=== PATIENT | female | born 1960 | race Caucasian/White ===

== ENCOUNTER → 2017-07-28 15:45 | Outpatient (CLI) | payer OTHER, SELFPAY ==
[2017-07-28 16:09] LABS: Hematocrit 40.8 % (37-47); Hemoglobin 13.8 g/dl (12.0-15.0); Mean Corp Hgb Conc 33.8 g/gl (32-36); Mean Corpuscular Hgb 30.8 pg (27.0-32.0); Mean Corpuscular Volume 91.1 fL (81-99); Mean Platelet Vol. 9.1 fl (6.2-12.0); Platelet Count 258 K/mm3 (150-450); RBC Distribution Width CV 12.6 % (11.6-14.6); RBC Distribution Width SD 40.9 fl (35.1-43.9); Red Blood Count 4.48 M/mm3 (4.2-5.4); White Blood Count 7.6 K/mm3 (4.4-11.0)
[2017-07-28 16:12] LABS: Scan Indicated on CBC? Y/N NO
[2017-07-28 16:57] LABS: AST(SGOT) 28 U/L (15-37); Alanine Aminotransfer ALT/SGPT 41 U/L (13-56); Albumin, Serum 3.7 g/dL (3.2-5.0); Alkaline Phosphatase 103 U/L (45-117); Anion Gap 8 (5-15); BUN 24 mg/dL (7-18); BUN/Creat Ratio 24.8 RATIO (10-20); Bilirubin, Direct 0.08 mg/dL (0.00-0.30); Calcium,Total 8.9 mg/dL (8.5-10.1); Chloride 105 mmol/L (98-107); Cholesterol 217 mg/dL (200); Creatinine, Serum 0.97 mg/dL (0.55-1.02); EST Glomerular Filtration Rate 63 mL/min (>60); Est Glom Filt Rate - Afr Amer 76 mL/min (>60); Glucose 93 mg/dL (74-106); High Density Lipoprotein 48 mg/dL; Potassium 3.8 mmol/L (3.5-5.1); Protein, Total 7.7 g/dL (6.4-8.2); Sodium Level 140 mmol/L (136-145); T4 Free Direct 0.94 ng/dL (0.76-1.46); Thyroid Stim Hormone (TSH) 3.24 uIU/mL (0.358-3.74); Triglycerides 242 mg/dL; Very Low Density Lipoprotein 48 mg/dL (5-40)
== END ==
PROVIDERS: Visit Provider Internal Medicine Cardiovascular Disease
DX: R06.09 Other forms of dyspnea (principal); R53.83 Other fatigue; R07.9 Chest pain, unspecified; R00.2 Palpitations; R94.31 Abnormal electrocardiogram [ECG] [EKG]; E66.9 Obesity, unspecified
CPT/HCPCS: 36415; 80048; 80061; 80076; 84439; 84443; 85027

== ENCOUNTER → 2017-08-12 12:46 | Outpatient (CLI) | payer OTHER, SELFPAY ==
--- NOTE | 2017-08-12 12:49 | ECHOD_ITS ---
Reason For Study: Chest Pain Procedure This was a 2D Doppler, Color Flow transthoracic echocardiogram. Exam performed in department. Left Ventricle Normal size and thickness. The estimated ejection fraction is 55 %. Stage 1 diastolic dysfunction. No regional wall motion abnormalities noted. Right Ventricle Normal size and thickness. Normal systolic function. Atria Normal left atrium. Normal right atrium. Normal atrial septum. Mitral Valve The mitral valve is structurally normal. No prolapse or stenosis seen. Trivial mitral valve insufficiency. Tricuspid Valve Normal tricuspid valve. Trivial tricuspid valve insufficiency. Right ventricular systolic pressure estimated to be 20 mmHg. Aortic Valve Trisinus/trileaflet aortic valve. Normal aortic valve. Pulmonic Valve Normal pulmonic valve. Great Vessels Normal aortic root. Normal arch. Normal inferior vena cava. Inferior vena cava collapse with sniff. Pericardium/Pleural No pericardial effusion. MMode/2D Measurements & Calculations LVIDd: 4.8 cm IVSd: 0.90 cm Ao root diam: 2.9 cm LVIDs: 3.5 cm LVPWd: 0.95 cm LA dimension: 3.9 cm RVDd: 3.4 cm FS: 28.1 % LAV(MOD-bp): 40.1 ml EDV(MOD-sp4): 79.6 ml SV(MOD-sp4): 47.6 ml LAV(MOD-bp) Indexed: 19.6 ml/m2 ESV(MOD-sp4): 32.0 ml LAV(MOD-sp2): 42.3 ml EF(MOD-sp4): 59.8 % LAV(MOD-sp4): 32.9 ml LA A4 area: 15.0 cm2 RA A4 area: 11.3 cm2 Doppler Measurements & Calculations MV E max melquiades: 64.2 cm/sec Lat Peak E' Melquiades: 5.5 cm/sec Med Peak E' Melquiades: 5.0 cm/sec MV A max melquiades: 79.7 cm/sec E/E' lat: 11.7 E/E' med: 12.9 MV E/A: 0.81 Ao V2 max: 144.2 cm/sec LV V1 max: 117.3 cm/sec PA V2 max: 86.6 cm/sec Ao max P.3 mmHg LV V1 max P.5 mmHg Ao V2 mean: 108.5 cm/sec Ao mean P.0 mmHg Ao V2 VTI: 31.5 cm TR max melquiades: 191.5 cm/sec TR max P.7 mmHg Interpretation Summary The estimated ejection fraction is 55 %. Stage 1 diastolic dysfunction. Trivial mitral valve insufficiency. Trivial tricuspid valve insufficiency. Right ventricular systolic pressure estimated to be 20 mmHg. Compared to echo report dated 02/05/2011, no appreciable changes noted. Ordering Physician: Mino Haro Referring Physician: Mino Haro Performed By: Stefany Graf, VANDANA, RVT
== END ==
PROVIDERS: Visit Provider Internal Medicine Cardiovascular Disease
DX: R07.9 Chest pain, unspecified (principal); R06.09 Other forms of dyspnea; R53.83 Other fatigue; E66.9 Obesity, unspecified; R94.31 Abnormal electrocardiogram [ECG] [EKG]; R00.2 Palpitations
CPT/HCPCS: 93306

== ENCOUNTER 2020-06-12 05:19 | Day surgery (SDC) | payer OTHER, SELFPAY ==
[2020-02-20 14:18] VITALS: BMI 46.2
[2020-06-12] VITALS (9 sets, daily range): BP systolic 106–142; BP diastolic 73–101; PULSE 66–77; RESP 16; TEMP 36.3–37; O2SAT 91–100; BMI 46.3
[2020-06-12] MEDS: Lactated Ringers 1,000 ML 100 ML IV (05:58)
--- NOTE | 2020-06-12 06:16 | HP.PCM_ITS ---
Problem List (1) Screening for intestinal cancer Status: Acute History of Present Illness Date of Admission: 06/12/20 60-year-old female. She presents for screening colonoscopy. Her brother had colon cancer. Her most recent colonoscopy was July 05, 2013. She had a redundant sigmoid colon. She states that she is avoided COVID-19. She denies abdominal pain bright red blood per rectum or melena. No unexpected weight loss. She states her health is otherwise been stable. Past Medical History Past Medical History (Chronic Problems): Chronic Problems (Last Reviewed 07/28/17 @ 14:54 by Regine Lam) Obesity (Chronic) Medical History: Medical History (Last Reviewed 07/28/17 @ 14:54 by Regine Lam) Obesity (Chronic) E66.9 Osteoarthritis M19.90 Varicose veins of bilateral lower extremities with other complications I83.893 History of echocardiogram Z92.89 Allergies erythromycin base Adverse Reaction (Severe, Verified 06/12/20 05:40) GI Upset Home Medications: Ambulatory Orders Medication Instructions Recorded naproxen sodium 220 mg tablet 220 mg PO DAILY 02/20/20 Idalou-3 Fatty Acids/Fish Oil [Fish 1 ea PO DAILY 06/08/20 Oil 1,000 mg Capsule] Surgical History: Surgical History (Last Updated 07/28/17 @ 15:04 by Regine Lam) History of adenoidectomy Z98.890, Z90.89 History of section Z98.891 History of cholecystectomy Z98.890, Z90.49 History of hysterectomy Z98.890, Z90.710 total History of liver biopsy Z98.890 History of tonsillectomy Z98.890, Z90.89 History of tubal ligation Z98.51 Smoking Status: Never smoker Tobacco Use: Non-smoker Review of Systems Constitutional: Denies: Fever HEENT: Denies: Difficulty Swallowing Cardiovascular: Denies: Chest Pain Respiratory: Denies: Shortness of Breath Gastrointestinal: Denies: Abdominal Pain, Hematochezia, Melena Endocrine: Denies: Change in Body Habitus VTE Information - Inpt Only VTE Present on Admission: No - Physical Exam Vitals/I&O's: Vital Signs Temp Pulse Resp BP Pulse Ox 98.1 F 77 16 121/92 H 97 06/12/20 05:41 06/12/20 05:41 06/12/20 05:41 06/12/20 05:41 06/12/20 05:41 Oxygen Delivery Method Room Air Weight: 253 lb 4.978 oz Body Mass Index (BMI) 46.3 General: Alert, Oriented x3, Cooperative, No apparent distress HEENT: Atraumatic Oral: Moist Mucosa Neck: Supple Lungs: Clear to auscultation, Normal air movement Cardiovascular: Regular rate, Regular Rhythm Abdomen: Bowel Sounds Present, Soft, Non Tender Psych/Mental Status: Normal Affect Microbiology Past 72 Hours 06/11/20 08:40 Interface Orders SARS-CoV-2 Antigen (Rapid) - Final Current Medications Lactated Ringer's () 1,000 mls @ 100 mls/hr IV .Q10H KWAME Last Admin: 06/12/20 05:58 Dose: 100 mls/hr Documented by: Assessment/Plan All Active Problems (Last Reviewed 07/28/17 @ 14:54 by Regine Lam) Screening for intestinal cancer (Acute) Dyspnea on exertion (Acute) Fatigue (Acute) Abnormal electrocardiogram (Acute) Chest pain (Acute) Intermittent palpitations (Acute) Plan to proceed with a colonoscopy with possible biopsy or polypectomy as indicated. She is aware of the technique, benefit, risk, alternatives. She has had an opportunity to ask and have questions answered. She presents via open access today. We will proceed as noted. Kendell Davalos M.D., F.A.C.S.
--- NOTE | 2020-06-12 06:54 | OP.CCLET_ITS ---
06/12/2020 Vicenta Jean Baptiste [address] [place] [address] Re : Colonoscopy procedure for Becky Rutledge Dear Dr. Jean Baptiste This procedure was performed on Friday, June 12, 2020. My impressions and recommendations are as follows: Impressions : - Non-thrombosed external hemorrhoids, non-thrombosed internal hemorrhoids and internal hemorrhoids that prolapse with straining, but spontaneously regress to the resting position (Grade II) found on digital rectal exam. - Tortuous colon. - The examination was otherwise normal. - No specimens collected. Recommendations : - Discharge patient to home. - Resume previous diet. - Continue present medications. - Repeat colonoscopy in 5 years for surveillance. My findings are described in the full procedure note, which is enclosed. If I can be of further assistance, please feel free to contact me at Doctor phone number(s): Work: . Sincerely, Kendell Davalos MD 06/12/2020 6:53:46 AM This report has been signed electronically.
--- NOTE | 2020-06-12 06:54 | OP.COLON_ITS ---
Patient Name: Becky Rutledge Procedure Date: 06/12/2020 6:14 AM Date of : 1960 Age: 60 Procedure: Colonoscopy Indications: Family history of colon cancer in a first-degree relative Providers: Kendell Davalos MD Referring MD: Vicenta Jean Baptiste Medicines: Midazolam 4 mg IV, Meperidine 100 mg IV Patient Profile: Last Colonoscopy: June 2013. Complications: No immediate complications. Procedure: Pre-Anesthesia Assessment: - Prior to the procedure, a History and Physical was performed, and patient medications and allergies were reviewed. The patient's tolerance of previous anesthesia was also reviewed. The risks and benefits of the procedure and the sedation options and risks were discussed with the patient. All questions were answered, and informed consent was obtained. Prior Anticoagulants: The patient has taken aspirin, last dose was 5 days prior to procedure. ASA Grade Assessment: II - A patient with mild systemic disease. After reviewing the risks and benefits, the patient was deemed in satisfactory condition to undergo the procedure. After I obtained informed consent, the scope was passed under direct vision. Throughout the procedure, the patient's blood pressure, pulse, and oxygen saturations were monitored continuously. The adult colonoscope was introduced through the anus and advanced to the cecum, identified by appendiceal orifice and ileocecal valve. The colonoscopy was performed without difficulty. The patient tolerated the procedure well. The quality of the bowel preparation was good. The ileocecal valve and the appendiceal orifice were photographed. Moderate Sedation: Moderate (conscious) sedation was personally administered by the endoscopist. The following parameters were monitored: oxygen saturation, heart rate, blood pressure, and response to care. Total physician intraservice time was 15 minutes. Scope In: 6:34:24 AM Scope Withdrawal Time 0 hours 7 minutes 20 seconds Scope Out: 6:48:34 AM Total Procedure Duration Time 0 hours 14 minutes 10 seconds Findings: The digital rectal exam findings include non-thrombosed external hemorrhoids, non-thrombosed internal hemorrhoids and internal hemorrhoids that prolapse with straining, but spontaneously regress to the resting position (Grade II). The sigmoid colon was moderately tortuous. Advancing the scope required changing the patient to a supine position. The exam was otherwise without abnormality. Impression: - Non-thrombosed external hemorrhoids, non-thrombosed internal hemorrhoids and internal hemorrhoids that prolapse with straining, but spontaneously regress to the resting position (Grade II) found on digital rectal exam. - Tortuous colon. - The examination was otherwise normal. - No specimens collected. Recommendation: - Discharge patient to home. - Resume previous diet. - Continue present medications. - Repeat colonoscopy in 5 years for surveillance. Procedure Code(s): --- Professional --- 29727, Colonoscopy, flexible; diagnostic, including collection of specimen(s) by brushing or washing, when performed (separate procedure) 03898, 59, Moderate sedation services provided by the same physician or other qualified health managed care director performing the diagnostic or therapeutic service that the sedation supports, requiring the presence of an independent trained observer to assist in the monitoring of the patient's level of consciousness and physiological status; initial 15 minutes of intraservice time, patient age 5 years or older Diagnosis Code(s): --- Professional --- K64.1, Second degree hemorrhoids K64.4, Residual hemorrhoidal skin tags Z80.0, Family history of malignant neoplasm of digestive organs Q43.8, Other specified congenital malformations of intestine CPT copyright 2017 [employer]. All rights reserved. The codes documented in this report are preliminary and upon social human services assistants review may be revised to meet current compliance requirements. Kendell Davalos MD 06/12/2020 6:53:46 AM This report has been signed electronically. Number of Addenda: 0 Note Initiated On: 06/12/2020 6:14 AM
== END 2020-06-12 07:30 | disposition home or self-care (01) ==
LOC: EN 05:19 → AC 05:19
PROVIDERS: PCP Internal Medicine; Referring Provider Internal Medicine; Visit Provider Surgery
PROC: 0DJD8ZZ Inspection of Lower Intestinal Tract, Via Natural or Artificial Opening Endoscopic (ICD-10-PCS; CPT 45378; principal; 2020-06-12 06:25)
DX: Z12.11 Encounter for screening for malignant neoplasm of colon (principal); Q43.8 Other specified congenital malformations of intestine; K64.1 Second degree hemorrhoids; K64.4 Residual hemorrhoidal skin tags; Z20.822 Contact with and (suspected) exposure to COVID-19; M19.90 Unspecified osteoarthritis, unspecified site; E66.9 Obesity, unspecified; Z80.0 Family history of malignant neoplasm of digestive organs
CPT/HCPCS: 45378; 87426; C9803; J7120

== ENCOUNTER → 2022-07-02 | Outpatient (CLI) | payer BC, SELFPAY ==
[2022-07-02 08:09] LABS: AST(SGOT) 34 U/L (15-37); Alanine Aminotransfer ALT/SGPT 63 U/L (13-56); Albumin, Serum 3.6 g/dL (3.2-5.0); Alkaline Phosphatase 99 U/L (45-117); Anion Gap 6 (5-15); BUN 21 mg/dL (7-18); BUN/Creat Ratio 21.9 RATIO (10-20); Calcium,Total 9.2 mg/dL (8.5-10.1); Chloride 104 mmol/L (98-107); Cholesterol 222 mg/dL (200); Creatinine, Serum 0.96 mg/dL (0.55-1.02); EST Glomerular Filtration Rate 62 mL/min (>60); Est Glom Filt Rate - Afr Amer 75 mL/min (>60); Globulin 3.7 g/dL (2.2-4.2); Glucose 121 mg/dL (74-106); High Density Lipoprotein 49 mg/dL; Potassium 4.3 mmol/L (3.5-5.1); Protein, Total 7.3 g/dL (6.4-8.2); Sodium Level 138 mmol/L (136-145); Triglycerides 160 mg/dL; Uric Acid 7.8 mg/dL (2.6-6.0); Very Low Density Lipoprotein 32 mg/dL (5-40)
[2022-07-02 08:13] LABS: Vitamin D,25 Hydroxy 28.4 ng/mL
[2022-07-02 09:04] LABS: Hemoglobin A1c 6.2 % (3.8-5.6)
== END | disposition home or self-care (01) ==
PROVIDERS: PCP Internal Medicine; Referring Provider Obstetrics & Gynecology; Visit Provider Obstetrics & Gynecology
DX: E66.9 Obesity, unspecified (principal); Z13.1 Encounter for screening for diabetes mellitus; Z13.220 Encounter for screening for lipoid disorders; Z13.29 Encounter for screening for other suspected endocrine disorder
CPT/HCPCS: 36415; 80053; 80061; 82306; 83036; 83525; 84443; 84550

== ENCOUNTER → 2022-07-07 | Outpatient (CLI) | payer BC, SELFPAY ==
[2022-07-07 07:07] LABS: Glucose 75GTT - Fasting 120 mg/dL (70-99)
[2022-07-07 07:36] LABS: Free T3 2.6 pg/mL (2.18-3.98); T4 Free Direct 0.92 ng/dL (0.76-1.46)
[2022-07-07 09:02] LABS: Glucose 75GTT - 30 minutes 193 mg/dL (100-160)
[2022-07-07 09:02] LABS: Glucose 75GTT - 60 minutes 264 mg/dL (100-160)
[2022-07-07 09:50] LABS: Glucose 75GTT - 120 minutes 153 mg/dL (70-140)
== END | disposition home or self-care (01) ==
LOC: LAB.FUTURE 06:33 → LAB 06:39
PROVIDERS: PCP Internal Medicine; Referring Provider Obstetrics & Gynecology; Visit Provider Obstetrics & Gynecology
DX: Z13.1 Encounter for screening for diabetes mellitus (principal); R94.6 Abnormal results of thyroid function studies
CPT/HCPCS: 36415; 82951; 82952; 84439; 84481

== ENCOUNTER → 2022-08-07 | Outpatient (CLI) | payer BC, SELFPAY | END | disposition home or self-care (01) | LOC: SL 11:24 | PROVIDERS: PCP Internal Medicine; Referring Provider Obstetrics & Gynecology; Visit Provider Obstetrics & Gynecology | DX: G47.10 Hypersomnia, unspecified (principal); R06.83 Snoring; E66.9 Obesity, unspecified | CPT/HCPCS: 95806 ==

== ENCOUNTER → 2022-08-20 | Outpatient (CLI) | payer BC, SELFPAY ==
--- NOTE | 2022-08-20 18:03 | STRESSREP_ITS ---
Stress Test Report Pharmacologic myocardial perfusion stress test. 62-year-old lady with a history of shortness of breath on exertion Resting EKG demonstrates sinus rhythm with a rate of 72 bpm. Resting blood pressure is 118/80 mmHg. 0.4 mg of regadenoson was infused per usual protocol followed by rapid intravenous saline flush injection. Continuous EKG monitoring was performed. The maximum heart rate was 95 bpm which was 60% of max impacted heart rate the maximum workload was 1 metabolic equivalent. At rest there were no ST or T wave changes noted to suggest ischemia and at peak infusion nonspecific ST changes were noted which did not meet the criteria for ischemia. No clinical angina is noted. The final blood pressure was 120/80 mmHg. Myocardial perfusion protocol. 14.9 mCi of technetium 99m sestamibi was injected at rest. 0.4 mg of regadenoson was infused per usual protocol. At peak infusion 44.7 mCi of technetium 99m sestamibi was injected stress images were obtained stress and rest images were reconstructed and compared in the short axis vertical long and horizontal long axis. Gated images were also obtained. Perfusion SPECT analysis: Review of the stress images demonstrate normal uptake of tracer noted in all areas of the myocardium except for small portion of the mid anterior wall with reduced perfusion. The resting images similar demonstrated normal uptake of tracer noted in all areas of the myocardium. The above is suggestive of mild mid anterior ischemia though breast wall attenuation cannot be completely excl uded. Gated SPECT analysis: The gated ejection fraction is 68%. Conclusion: Mildly abnormal pharmacologic myocardial perfusion stress test. Preserved ejection fraction.
== END | disposition home or self-care (01) ==
PROVIDERS: PCP Internal Medicine; Referring Provider Internal Medicine Cardiovascular Disease; Visit Provider Internal Medicine Cardiovascular Disease
DX: R06.09 Other forms of dyspnea (principal); R94.31 Abnormal electrocardiogram [ECG] [EKG]; R07.9 Chest pain, unspecified; R00.2 Palpitations
CPT/HCPCS: 78452; 93017; A9500; A4216; J2785

== ENCOUNTER → 2022-08-28 | Outpatient (CLI) | payer BC, SELFPAY ==
--- NOTE | 2022-08-28 13:35 | ECHOD_ITS ---
Reason For Study: Dyspnea/SOB Procedure This was a 2D Doppler, Color Flow transthoracic echocardiogram. Exam performed in department. Left Ventricle Normal LV size. Left ventricular systolic function is normal. The estimated ejection fraction is 60 %. Stage 1 diastolic dysfunction. No regional wall motion abnormalities noted. Right Ventricle Normal RV size. Normal systolic function. Atria Normal left atrium. Normal right atrium. Mitral Valve Normal mitral valve. Tricuspid Valve Normal tricuspid valve. Aortic Valve Trisinus/trileaflet aortic valve. Pulmonic Valve Normal pulmonic valve. Great Vessels Normal aortic root. The pulmonary artery is normal size. Normal inferior vena cava. Pericardium/Pleural No pericardial effusion. MMode/2D Measurements & Calculations LVIDd: 4.8 cm IVSd: 1.0 cm Ao root diam: 3.1 cm LVIDs: 3.7 cm LVPWd: 0.95 cm LA dimension: 3.8 cm RVDd: 3.5 cm FS: 23.4 % LAV(MOD-bp): 47.4 ml LVAd ap4: 29.7 cm2 SV(MOD-sp4): 57.4 ml LAV(MOD-bp) Indexed: 21.5 ml/m2 LVLd ap4: 8.0 cm LAV(MOD-sp2): 43.6 ml EDV(MOD-sp4): 89.3 ml LAV(MOD-sp4): 43.8 ml EDV(sp4-el): 94.2 ml LVAs ap4: 15.2 cm2 LVLs ap4: 6.3 cm ESV(MOD-sp4): 31.9 ml ESV(sp4-el): 31.2 ml EF(MOD-sp4): 64.3 % EF(sp4-el): 66.9 % SV(sp4-el): 63.0 ml LA A4 area: 17.3 cm2 RA A4 area: 11.4 cm2 Time Measurements MV dec time: 0.19 sec Doppler Measurements & Calculations MV E max melquiades: 85.7 cm/sec Lat Peak E' Melquiades: 8.2 cm/sec Med Peak E' Melquiades: 7.7 cm/sec MV A max melquiades: 90.6 cm/sec E/E' lat: 10.5 E/E' med: 11.1 MV E/A: 0.95 MV V2 max: 111.2 cm/sec MV P1/2t max melquiades: 88.8 cm/sec Ao V2 max: 177.1 cm/sec MV max P.9 mmHg MV P1/2t: 62.4 msec Ao max P.6 mmHg MV V2 mean: 60.6 cm/sec Ao V2 mean: 114.8 cm/sec MV mean P.7 mmHg MV dec slope: 416.6 cm/sec2 Ao mean P.1 mmHg MV V2 VTI: 30.0 cm MVA(P1/2t): 3.5 cm2 Ao V2 VTI: 34.5 cm AV (velocity ratio): 0.78 LV V1 max: 119.9 cm/sec PA V2 max: 105.7 cm/sec LV V1 max P.8 mmHg PA V2 mean: 77.9 cm/sec LV V1 mean P.9 mmHg LV V1 mean: 78.4 cm/sec LV V1 VTI: 26.8 cm ECHO/Echo Complete Interpretation Summary Normal LV size. Left ventricular systolic function is normal. The estimated ejection fraction is 60 %. Stage 1 diastolic dysfunction. Structurally normal valves. Ordering Physician: Israel Foss Referring Physician: Vicenta Jean Baptiste M.D. Performed By: Gordon Herbert RCS
== END | disposition home or self-care (01) ==
PROVIDERS: PCP Internal Medicine; Referring Provider Internal Medicine Cardiovascular Disease; Visit Provider Internal Medicine Cardiovascular Disease
DX: R06.02 Shortness of breath (principal); R94.31 Abnormal electrocardiogram [ECG] [EKG]; R07.9 Chest pain, unspecified; R00.2 Palpitations
CPT/HCPCS: 93306

== ENCOUNTER → 2022-09-01 | Outpatient (CLI) | payer BC, SELFPAY ==
--- NOTE | 2022-08-28 15:00 | RAD_ITS ---
INDICATION: Abnormal stress test. Cardiac cath ordered. EXAMINATION/TECHNIQUE: X-RAY - XR Chest 2 Views COMPARISON: None. FINDINGS: LINES/DEVICES: None. LUNGS: No consolidation, edema or effusion. No pneumothorax. MEDIASTINUM AND CARDIOVASCULAR STRUCTURES: Cardiac silhouette not enlarged. Central airways and mediastinal contour are unremarkable. BONES AND SOFT TISSUES: Unremarkable. RAD/Chest PA and Lateral IMPRESSION: No radiographic evidence of acute cardiopulmonary disease. Electronically Signed: Fred Garrett MD at 19:47 EDT ,
[2022-08-28 15:54] LABS: Absolute Lymphocyte Count 1.94 X10^3/uL (0.83-4.51); Absolute Neutrophil Count 5.3 X10^3/uL (2.0-7.7); Basophil# 0.05 X10^3/uL; Basophil% 0.6 % (0-1); Eosinophil# 0.17 X10^3/uL; Eosinophils% 2.2 % (0-5); Hematocrit 40.4 % (37-47); Hemoglobin 13.6 g/dL (12.0-15.0); Lymphocyte # 1.94 X10^3/ul (0.83-4.51); Lymphocyte % 24.7 % (19-41); Mean Corp Hgb Conc 33.7 g/dL (32-36); Mean Corpuscular Hgb 30.6 pg (27.0-32.0); Mean Corpuscular Volume 90.8 fL (81-99); Mean Platelet Vol. 9.3 fl (6.2-12.0); Monocyte# 0.42 X10^3/uL; Monocyte% 5.3 % (0-10); NRBC Flagged by Analyzer 0 % (0-5); Neutrophil # 5.25 X10^3/uL (2.7-7.7); Neutrophil % 66.7 % (47-70); Platelet Count 265 K/mm3 (150-450); RBC Distribution Width CV 12.8 % (11.6-14.6); RBC Distribution Width SD 42.2 fl (35.1-43.9); Red Blood Count 4.45 M/mm3 (4.2-5.4); White Blood Count 7.9 K/mm3 (4.4-11.0)
[2022-08-28 16:11] LABS: International Normalized Ratio 0.9; Partial Thromboplast Time 27.3 Seconds (24.1-36.2); Prothrombin Time (Protime)PT. 11.7 SECONDS (11.7-14.9)
[2022-08-28 16:12] LABS: Anion Gap 6 (5-15); BUN 21 mg/dL (7-18); BUN/Creat Ratio 21.4 RATIO (10-20); Calcium,Total 9.2 mg/dL (8.5-10.1); Chloride 106 mmol/L (98-107); Creatinine, Serum 0.98 mg/dL (0.55-1.02); EST Glomerular Filtration Rate 60 mL/min (>60); Est Glom Filt Rate - Afr Amer 73 mL/min (>60); Glucose 102 mg/dL (74-106); Sodium Level 139 mmol/L (136-145)
--- NOTE | 2022-08-29 12:41 | PCM.HP.BLA ---
History and Physical Date of Admission: 09/01/22 Pleasant 62-year-old lady with no previous cardiac history who is here to reestablish care after complaining of lower back pain with exertion and shortness of breath.? She says that she does not have a history of hypertension but was recently put on a diet medication and thinks that she has lost some weight.? She denies any chest pain but she has had shortness of breath with exertion no dizziness no diaphoresis no near syncope though she says that occasionally she has had some lightheadedness.? She is on no medication other than thyroid medication her last echocardiogram was from July 2017 demonstrating an ejection fraction of 55% and stage I diastolic dysfunction. Intake Vital Signs ? 06/12/2104:41 07/24/2311:36 07/23/2313:20 Height 5 ft 2 in 5 ft 2 in 5 ft 2 in Weight: ? ? 280 lb BMI ? ? 51.2 BP ? ? 144/86 H Blood Pressure Location ? ? Lt brachial Position ? ? Sitting Respiration ? ? 18 Pulse ? ? 84 Pulse Source ? ? 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 Accompanied by: None Is patient in pain?: No Allergies erythromycin base Adverse Reaction (Severe, Verified 07/23/22 14:26) GI Upsetamoxicillin [From Augmentin] Adverse Reaction (Unknown, Verified 07/23/22 14:26) GI Upsetclavulanic acid [From Augmentin] Adverse Reaction (Unknown, Verified 07/23/22 14:26) GI Upset Medications cholecalciferol (vitamin D3) 50 mcg (2,000 unit) tablet 50 mcg PO DAILY 07/23/22 [History Confirmed 07/23/22] levothyroxine 25 mcg tablet 25 mcg PO DAILY 07/23/22 [History Confirmed 07/23/22] metformin 500 mg tablet,extended release 24 hr 1,000 mg PO QPM 07/23/22 [History Confirmed 07/23/22] omega-3 fatty acids-fish oil 340 mg-1,000 mg capsule 2 cap PO DAILY 07/23/22 [History Confirmed 07/23/22] phentermine 15 mg capsule 15 mg PO DAILY 07/23/22 [History Confirmed 07/23/22] Ejection fraction %: 55 to 59 PFSH Medical History? Back pain Obesity Osteoarthritis Screening for intestinal cancer Type 2 diabetes mellitus without complication Varicose veins of bilateral lower extremities with other complications Surgical History? History of adenoidectomy History of section History of cholecystectomy History of hysterectomy History of liver biopsy History of tonsillectomy History of tubal ligation Family History? Mother CAD (coronary artery disease)Grandfather Congestive heart failureGrandmother CVA (cerebral vascular accident)Father Colon cancerBrother Colon cancer Social History? Smoking Status:? Never smoker alcohol intake:? never substance use type:? does not use caffeine:? No ROS Const Const: Positive for fatigue, weakness and other; Negative for headache(s), frequent falls, difficulty sleeping or excessive sweating Eyes Eyes: Negative for loss of peripheral vision, transient loss of vision, blurry vision, double vision or tunnel vision ENT ENT: Negative for headache(s), dizziness, Nosebleed/epistaxis or balance problems Cardio Chest Pain: No Palpitations: Yes feels like its: fast Edema: Bilateral Muscle aches with walking: None Resp Respiratory: Positive for SOB with activity; Negative for SOB at rest, SOB orthopnea\SOB lying down, Cough or paroxysmal nocturnal dyspnea GI GI: Negative nausea, vomiting, heartburn or black,tarry stools : Negative for hematuria Musc Musc: Positive for muscle aches/ myalgia (C/o of back pain with walking) and joint pain; Negative for muscle weakness or balance problems Skin Skin: Negative non-healing lesions, rash or unusual bruising Neuro Neuro: Positive for lightheadedness, near syncope, weakness and other (Episodes while driving where she felt like she was timothy to faint.); Negative for dizziness, syncope, frequent falls, headache(s), blurry vision, double vision or lack of coordination Tushar Hematologic/Lymphatic: Negative for easy bleeding or easy bruising Endo Endo: Positive for fatigue; Negative for excessive sweating or increased thirst/drinking Psych Psych: Negative for anxiety or depression Allergy Allergy/Immunology: Negative for hives and Negative for rash Cardiology Exam Const Appearance: cooperative, healthy appearing, no acute distress, well developed and well groomed Nutritional Appearance: average body habitus and well nourished Orientation: alert, awake and oriented x3 Head Head: normal to inspection, normocephalic and atraumatic Ears: hearing grossly normal bilaterally and external ears normal Nose: external nose normal, nares normal, nasal mucous membranes and turbinates normal, septum normal and no nasal discharge Face and Sinus: face symmetric Mouth: oral mucosae normal, tongue normal, oropharynx normal and moist mucous membranes Teeth and gingiva: dentition normal Throat: posterior oropharynx normal, tonsils normal and uvula midline Eyes General: appearance normal, both eyes and all related structures Eyelids: eyelids normal Conjunctivae: conjunctivae normal Pupils: PERRL, normal by confrontation and accommodation normal EOM: EOM intact bilaterally Neck Neck: normal visual inspection, trachea midline and no JVD JVD: +5 Carotids: normal carotid upstroke and bounding pulses Chest Chest inspection: normal inspection of the chest, symmetric chest movement and normal respiratory effort Auscultation: Bilateral: Clear to Auscultation Cardio Palpation: normal PMI Rate: regular rate Rhythm: regular rhythm Heart sounds: S1 normal, S2 normal and normal, physiologic split S2; Negative rub, gallop or murmur GI GI: normal to inspection, soft, no hepatosplenomegaly and bowel sounds present Neuro General: patient alert, patient awake, patient oriented x3, gait normal, moves all extremities and no focal sensory deficit Skin Skin: no rashes or lesions noted Extremities Pulses: Normal: Right Femoral Pulse, Left Femoral Pulse, Right Dorsalis Pedis Pulse, Left Dorsalis Pedis Pulse, Right Posterior Tibial Pulse, Left Posterior Tibial Pulse, Right Radial Pulse and Left Radial Pulse Lower Extremity Edema: None: Bilateral Musculoskel Musculoskeletal: No joint tenderness Psych Psychological: normal affect Supplemental Info Supplemental Information Stress test on 08/20/2022: Conclusion: Mildly abnormal pharmacologic myocardial perfusion stress test. Preserved ejection fraction. Echocardiogram 08/12/2017 Interpretation Summary The estimated ejection fraction is 55 %. Stage 1 diastolic dysfunction. Trivial mitral valve insufficiency. Trivial tricuspid valve insufficiency. Right ventricular systolic pressure estimated to be 20 mmHg. Compared to echo report dated 02/05/2011, no appreciable changes noted. Assessment and Plan Assessment and Plan (1) Dyspnea on exertion: ?Status:?Acute ?Plan: To assess shortness of breath, she had a pharmacological nuclear stress test on 08/20/2022. This was noted be mildly abnormal with a preserved ejection fraction. On account of abnormal stress test, she will proceed with heart catheterization. Depending on results, further recommendation be made.
--- NOTE | 2023-02-17 14:00 | PCM.HP.BLA ---
History and Physical Date of Admission: 03/02/23 Pleasant 62-year-old lady who presents for a cardiac catheterization. She has no previous cardiac history who is complaining of lower back pain with exertion and shortness of breath. She underwent a stress test in July of this year which demonstrated mildly abnormal pharmacologic myocardial perfusion stress test. Her insurance company denied a cardiac catheterization at that time, and she was placed on medical therapy. Her echocardiogram on 08/28/2022 demonstrated an ejection fraction of 60%, and stage I diastolic dysfunction. Patient states that she does have a history of coronary artery disease. From a cardiac standpoint, the patient is doing well. She denies any palpitations. Patient does acknowledge one episode of a shooting pain in her left chest at rest. This was brief. She states that she is extremely SOB with minimal exertion. She does sleep propped up with 3 pillows. She denies PND. She does have a history of ERASMO-but does not wear a CPAP. She does not have bleeding issues; no blood in urine, stool or nosebleeds. She does acknowledge a decrease in energy level. She denies myalgias, or claudication. She does not have edema, or sudden weight gain. She denies dizziness, lightheadedness, syncopal or near syncopal episodes, and headaches. Intake Vital Signs See EMR Allergies See EMR Medications See EMR [facility] Medical History Abnormal stress test Back pain Obesity Osteoarthritis Screening for intestinal cancer Type 2 diabetes mellitus without complication Varicose veins of bilateral lower extremities with other complications Surgical History History of adenoidectomy History of section History of cholecystectomy History of hysterectomy History of liver biopsy History of tonsillectomy History of tubal ligation Family History Mother CAD (coronary artery disease)Grandfather Congestive heart failureGrandmother CVA (cerebral vascular accident)Father Colon cancerBrother Colon cancer Social History Smoking Status: Never smoker alcohol intake: never substance use type: does not use caffeine: No ROS Const Const: Positive for fatigue; Negative for weakness, fever(s), headache(s), chills, frequent falls, weight gain or weight loss Eyes Eyes: Negative for blind spots, loss of peripheral vision, transient loss of vision, blurry vision, change in vision, double vision, floaters or tunnel vision ENT ENT: Negative for headache(s), dizziness, Nosebleed/epistaxis, balance problems or neck pain Cardio Chest Pain: Yes Frequency: other Character: other (shooting) Onset: at rest Location: left chest Duration: brief Palpitations: No Edema: None Muscle aches with walking: None Resp Respiratory: Positive for SOB with activity (with minimal exertion) and SOB orthopnea\SOB lying down; Negative for SOB at rest GI GI: Negative nausea, vomiting, heartburn, bloating, vomiting blood/hematemesis, bright, red blood in stools or black,tarry stools Musc Musc: Negative for muscle aches/ myalgia, muscle weakness, joint pain or balance problems Neuro Neuro: Negative for dizziness, lightheadedness, near syncope, syncope, orthostatic symptoms, frequent falls, headache(s), weakness, blurry vision or double vision Tushar Hematologic/Lymphatic: Negative for easy bleeding or easy bruising Endo Endo: Positive for fatigue Cardiology Exam Const Appearance: cooperative, healthy appearing, no acute distress, well developed and well groomed Nutritional Appearance: average body habitus, well nourished and obese Orientation: alert, awake and oriented x3 Head Head: normal to inspection, normocephalic and atraumatic Ears: hearing grossly normal bilaterally and external ears normal Nose: external nose normal and nares normal Face and Sinus: face symmetric Eyes General: appearance normal, both eyes and all related structures Eyelids: eyelids normal Conjunctivae: conjunctivae normal Pupils: PERRL, normal by confrontation and accommodation normal EOM: EOM intact bilaterally Neck Neck: normal visual inspection, trachea midline and no JVD JVD: +5 Carotids: normal carotid upstroke and bounding pulses Chest Chest inspection: normal inspection of the chest, symmetric chest movement and normal respiratory effort Auscultation: Bilateral: Clear to Auscultation Cardio Palpation: normal PMI Rate: regular rate Rhythm: regular rhythm Heart sounds: S1 normal, S2 normal and normal, physiologic split S2; Negative rub, gallop or murmur GI GI: normal to inspection, soft and obese Neuro General: patient alert, patient awake, patient oriented x3, gait normal, moves all extremities and no focal sensory deficit Skin Skin: no rashes or lesions noted Extremities Pulses: Normal: Right Posterior Tibial Pulse, Left Posterior Tibial Pulse, Right Radial Pulse and Left Radial Pulse Lower Extremity Edema: None: Bilateral Musculoskel Musculoskeletal: No joint tenderness Psych Psychological: normal affect Supplemental Info Supplemental Information Echocardiogram 08/28/2022: Interpretation Summary Normal LV size. Left ventricular systolic function is normal. The estimated ejection fraction is 60 %. Stage 1 diastolic dysfunction. Structurally normal valves. Echocardiogram 08/12/2017 Interpretation Summary The estimated ejection fraction is 55 %. Stage 1 diastolic dysfunction. Trivial mitral valve insufficiency. Trivial tricuspid valve insufficiency. Right ventricular systolic pressure estimated to be 20 mmHg. Compared to echo report dated 02/05/2011, no appreciable changes noted. Stress Test 08/20/2022: Pharmacologic myocardial perfusion stress test. 62-year-old lady with a history of shortness of breath on exertion Resting EKG demonstrates sinus rhythm with a rate of 72 bpm. Resting blood pressure is 118/80 mmHg. 0.4 mg of regadenoson was infused per usual protocol followed by rapid intravenous saline flush injection. Continuous EKG monitoring was performed. The maximum heart rate was 95 bpm which was 60% of max impacted heart rate the maximum workload was 1 metabolic equivalent. At rest there were no ST or T wave changes noted to suggest ischemia and at peak infusion nonspecific ST changes were noted which did not meet the criteria for ischemia. No clinical angina is noted. The final blood pressure was 120/80 mmHg. Myocardial perfusion protocol. 14.9 mCi of technetium 99m sestamibi was injected at rest. 0.4 mg of regadenoson was infused per usual protocol. At peak infusion 44.7 mCi of technetium 99m sestamibi was injected stress images were obtained stress and rest images were reconstructed and compared in the short axis vertical long and horizontal long axis. Gated images were also obtained. Perfusion SPECT analysis: Review of the stress images demonstrate normal uptake of tracer noted in all areas of the myocardium except for small portion of the mid anterior wall with reduced perfusion. The resting images similar demonstrated normal uptake of tracer noted in all areas of the myocardium. The above is suggestive of mild mid anterior ischemia though breast wall attenuation cannot be completely excluded. Gated SPECT analysis: The gated ejection fraction is 68%. Conclusion: Mildly abnormal pharmacologic myocardial perfusion stress test. Preserved ejection fraction. Assessment and Plan Assessment and Plan (1) Abnormal stress test: Status: Acute Plan: Patient underwent a stress test on 08/20/2022 which demonstrated mildly abnormal pharmacologic myocardial perfusion stress test. Her most recent coronary calcium score demonstrated suboptimal CT angiogram with moderate mid left anterior descending artery plaquing and probable stenosis present. With these results, and her SANZ, and fatigue, would like to proceed with a cardiac catheterization to further assess this. Depending on results, further recommendations will be made. (2) Dyspnea on exertion: Status: Acute Plan: (3) Fatigue: Status: Acute Plan: (4) Elevated coronary calcium score:
== END | disposition home or self-care (01) ==
LOC: PAT 10-02 12:28
PROVIDERS: PCP Internal Medicine; Referring Provider Internal Medicine Cardiovascular Disease; Visit Provider Internal Medicine Cardiovascular Disease
DX: R06.09 Other forms of dyspnea (principal); R94.39 Abnormal result of other cardiovascular function study; Z53.8 Procedure and treatment not carried out for other reasons
CPT/HCPCS: 36415; 71046; 80048; 85025; 85610; 85730

== ENCOUNTER → 2022-09-04 | Outpatient (CLI) | payer BC, SELFPAY | END | disposition home or self-care (01) | LOC: SL 08:39 | PROVIDERS: PCP Internal Medicine; Referring Provider Internal Medicine; Visit Provider Internal Medicine | DX: Z00.00 Encounter for general adult medical examination without abnormal findings (principal) ==

== ENCOUNTER → 2022-12-25 | Outpatient (CLI) | payer BC, SELFPAY ==
[2022-12-25 10:19] LABS: Absolute Lymphocyte Count 2.03 X10^3/uL (0.83-4.51); Basophil# 0.05 X10^3/uL; Basophil% 0.7 % (0-1); Eosinophil# 0.19 X10^3/uL; Eosinophils% 2.8 % (0-5); Hematocrit 43.6 % (37-47); Hemoglobin 13.8 g/dL (12.0-15.0); Lymphocyte # 2.03 X10^3/ul (0.83-4.51); Lymphocyte % 30.3 % (19-41); Mean Corp Hgb Conc 31.7 g/dL (32-36); Mean Corpuscular Hgb 29.7 pg (27.0-32.0); Mean Corpuscular Volume 93.8 fL (81-99); Mean Platelet Vol. 9.5 fl (6.2-12.0); Monocyte# 0.41 X10^3/uL; Monocyte% 6.1 % (0-10); NRBC Flagged by Analyzer 0 % (0-5); Neutrophil # 3.98 X10^3/uL (2.7-7.7); Neutrophil % 59.5 % (47-70); Platelet Count 272 K/mm3 (150-450); RBC Distribution Width CV 12.8 % (11.6-14.6); RBC Distribution Width SD 43.9 fl (35.1-43.9); Red Blood Count 4.65 M/mm3 (4.2-5.4); White Blood Count 6.7 K/mm3 (4.4-11.0)
[2022-12-25 10:42] LABS: BNP,B-Type NATRIURETIC PEPTIDE 37.9 pg/mL (0-100)
[2022-12-25 10:52] LABS: Vitamin D,25 Hydroxy 37.9 ng/mL
[2022-12-25 11:31] LABS: Anion Gap 6 (5-15); BUN 16 mg/dL (7-18); BUN/Creat Ratio 17.1 RATIO (10-20); Calcium,Total 9.2 mg/dL (8.5-10.1); Chloride 107 mmol/L (98-107); Creatinine, Serum 0.93 mg/dL (0.55-1.02); EST Glomerular Filtration Rate 64 mL/min (>60); Est Glom Filt Rate - Afr Amer 78 mL/min (>60); Free T3 2.4 pg/mL (2.18-3.98); Glucose 120 mg/dL (74-106); Potassium 3.8 mmol/L (3.5-5.1); Sodium Level 139 mmol/L (136-145); T4 Free Direct 1.03 ng/dL (0.76-1.46); Thyroid Stim Hormone (TSH) 3.58 uIU/mL (0.358-3.74)
== END | disposition home or self-care (01) ==
LOC: LAB 09:13
PROVIDERS: PCP Internal Medicine; Referring Provider Nurse Practitioner Gerontology; Visit Provider Nurse Practitioner Gerontology
DX: R53.83 Other fatigue (principal); R06.09 Other forms of dyspnea; E55.9 Vitamin D deficiency, unspecified
CPT/HCPCS: 36415; 80048; 82306; 83880; 84439; 84443; 84481; 85025

== ENCOUNTER → 2023-02-03 | Outpatient (CLI) | payer BC, SELFPAY ==
--- NOTE | 2023-02-03 13:09 | CT_ITS ---
STUDY: CT CHEST WITH CONTRAST REASON FOR EXAM: Female, 62 years old. SANZ, abnormal stress test. Cardiac over read examination. RADIATION DOSAGE (If Supplied By Facility): CTDIvol = ( 50.24 ) mGy, DLP = ( 3717.63 ) mGycm TECHNIQUE: Transaxial imaging was performed following intravenous administration of IV 100mL Isovue-370. Individualized dose optimization techniques were used for this CT. COMPARISON: No relevant priors. FINDINGS: CHEST The lungs are normal. There is no demonstrated pleural abnormality. There are calcifications of the coronary arteries. Normal mediastinum. Normal hilar regions. Normal unenhanced pulmonary arteries. Normal aorta arch and descending thoracic aorta. Normal osseous structures. Diffuse fatty infiltration of the liver. Small hiatal hernia. CT/Limited Chest CT Cardiac Only IMPRESSION: Coronary artery calcification. Electronically Signed: Galdino Mcleod MD at 11:19 EST ,
[2023-02-03 13:30] VITALS: BP 147/72; PULSE 65; RESP 16; TEMP 36.1; BMI 51.0
[2023-02-03] MEDS: 0.9% Saline Lock 10 ML Syringe IV (13:35)
[2023-02-03 13:53] VITALS: BP 147/72; PULSE 68
[2023-02-03] MEDS: Nitroglycerin SL (ED/IMG/CATH) 0.4 MG TABLET SL (13:53)
[2023-02-03 13:56] LABS: CREATININE FINGERSTICK 1.3 mg/dL (0.55-1.02)
[2023-02-03 14:10] VITALS: BP 144/67; PULSE 69; RESP 16; O2SAT 97
[2023-02-03 14:12] VITALS: BP 144/67; PULSE 69; RESP 16; O2SAT 97
--- NOTE | 2023-02-16 16:36 | CCTA.WCONT ---
CCTA w/Cont Coronary Arteries Abnormal stress test Coronary Calcium Scoring: High-resolution Computed Tomographic imaging of the chest was performed on [02/03/2023], with particular attention paid to the coronary arteries. Intravenous contrast agent was administered per protocol and images reconstructed and displayed. The images were noted to be somewhat suboptimal LEFT MAIN CORONARY ARTERY: Normal [] LEFT ANTERIOR DESCENDING CORONARY ARTERY: Mild to moderate focal calcification noted in the mid left anterior descending artery with probable moderate stenosis present [] LEFT CIRCUMFLEX CORONARY ARTERY: Nondominant vessel with no significant atherosclerotic plaquing noted [] RIGHT CORONARY ARTERY: Dominant right coronary artery with mild focal atherosclerotic plaquing present. CORONARY CALCIUM SCORE: 123 [] Conclusion: Suboptimal CT angiogram with moderate mid left anterior descending artery plaquing and probable stenosis present
== END | disposition home or self-care (01) ==
PROVIDERS: PCP Internal Medicine; Referring Provider Nurse Practitioner Gerontology; Visit Provider Nurse Practitioner Gerontology
DX: R94.39 Abnormal result of other cardiovascular function study (principal); R06.09 Other forms of dyspnea; R07.9 Chest pain, unspecified
CPT/HCPCS: 75571; 75574; 76380; Q9967

== ENCOUNTER → 2023-02-27 | Outpatient (CLI) | payer MEDICARE, OTHER, SELFPAY ==
--- NOTE | 2023-02-27 07:11 | RAD_ITS ---
STUDY: X-RAY CHEST REASON FOR EXAM: Female, 62 years old. Cardiac Catheterization TECHNIQUE: PA and lateral views of the chest. COMPARISON: 08/28/2022 FINDINGS: The lungs are clear and expanded. There is no demonstrated pleural abnormality. Normal size heart. Normal mediastinum and lucio. Normal visualized pulmonary arteries. Normal visualized aortic arch and descending thoracic aorta. Normal visualized thoracic spine. Normal visualized ribs, clavicles, and shoulders. There is no demonstrated abnormality of the visualized soft tissue structures of the upper abdomen. RAD/Chest PA and Lateral IMPRESSION: Normal x-ray examination of the chest. Electronically Signed: Munir Monteiro MD at 18:58 EST ,
[2023-02-27 07:40] LABS: Absolute Lymphocyte Count 1.48 X10^3/uL (0.83-4.51); Absolute Neutrophil Count 2.9 X10^3/uL (2.0-7.7); Basophil# 0.04 X10^3/uL; Basophil% 0.8 % (0-1); Eosinophil# 0.15 X10^3/uL; Hematocrit 42.2 % (37-47); Hemoglobin 13.5 g/dL (12.0-15.0); Lymphocyte # 1.48 X10^3/ul (0.83-4.51); Mean Corpuscular Hgb 29.6 pg (27.0-32.0); Mean Corpuscular Volume 92.5 fL (81-99); Mean Platelet Vol. 9.4 fl (6.2-12.0); Monocyte# 0.25 X10^3/uL; Monocyte% 5.1 % (0-10); NRBC Flagged by Analyzer 0 % (0-5); Neutrophil # 2.94 X10^3/uL (2.7-7.7); Neutrophil % 59.7 % (47-70); Platelet Count 221 K/mm3 (150-450); RBC Distribution Width CV 12.9 % (11.6-14.6); RBC Distribution Width SD 43.8 fl (35.1-43.9); Red Blood Count 4.56 M/mm3 (4.2-5.4); White Blood Count 4.9 K/mm3 (4.4-11.0)
[2023-02-27 07:55] LABS: Internal QC Validated? YES +Cl - CLEAR BKGD; Pregnancy, Serum, hCG Quali. NEGATIVE Negative
[2023-02-27 08:03] LABS: Anion Gap 5 (5-15); BUN 15 mg/dL (7-18); Calcium,Total 9.2 mg/dL (8.5-10.1); Chloride 107 mmol/L (98-107); Creatinine, Serum 0.94 mg/dL (0.55-1.02); EST Glomerular Filtration Rate 64 mL/min (>60); Est Glom Filt Rate - Afr Amer 77 mL/min (>60); Glucose 125 mg/dL (74-106); Potassium 4.1 mmol/L (3.5-5.1); Sodium Level 139 mmol/L (136-145)
== END | disposition home or self-care (01) ==
PROVIDERS: Nurse Practitioner Gerontology; PCP Internal Medicine; Referring Provider Internal Medicine Cardiovascular Disease; Visit Provider Internal Medicine Cardiovascular Disease
DX: R93.1 Abnormal findings on diagnostic imaging of heart and coronary circulation (principal); R94.39 Abnormal result of other cardiovascular function study; R06.09 Other forms of dyspnea; R53.83 Other fatigue
CPT/HCPCS: 36415; 71046; 80048; 84703; 85025

== ENCOUNTER 2023-03-02 06:58 | Day surgery (SDC) | payer MEDICARE, OTHER, SELFPAY ==
[2023-02-27 10:44] VITALS: BMI 50.6
--- NOTE | 2023-03-02 08:29 | CL.D_ITS ---
Patient Name: LEONEL HAMLIN Study Date: 03/02/2023 Performing: Israel Foss MD Ht: 62 inches 157.48 cm : 1960 Wt: 277.01 lbs 125.65 kg Age: 62 Gender: female BSA: 2.2 PROCEDURE(S) PERFORMED [id number]-([id number])[facility] CLINICAL PROFILE AND INDICATIONS Indications: Suspected CAD Heart Failure: None Stress/Imaging Date: 08/20/22Stress Test with SPECT MPI: Positive Low Risk CAD Presentations: Stable angina. CONCLUSIONS Non obstructive coronary arteries RECOMMENDATIONS Medical therapy Antihypertensive therapy. DESCRIPTION OF PROCEDURE The patient arrived to the procedure lab. The risks and benefits of the procedure as well as a full description of our services here and current unavailability of surgical backup were fully explained to the patient and/or their significant other prior to the catheterization. The Timeout was completed, verifying the correct patient and procedure. The patient's procedural site was prepped and draped in the usual fashion. Local anesthetic was given subcutaneously to right radial region with Lidocaine 2%. Using a modified Seldinger technique, arterial access was obtained via the right radial artery, a 6Fr sheath was inserted. Right Coronary Artery selective angiography was then performed in multiple views using a 5 Fr. 4.0 [place] catheter. Left Coronary Artery selective angiography was performed in multiple views using a 5 Fr. 4.0 [place] catheter.The arterial sheath was pulled and a TR Band was applied for hemostasis CORONARY ANGIOGRAPHY DOMINANCE: Right Dominant LEFT HEART ASSESSMENT Left Ventricular Ejection Fraction: by Echo 60 % Normal LV wall motion Normal Left Ventricular systolic function LEFT MAIN: Angiographically normal LEFT ANTERIOR DESCENDING ARTERY: No significant disease noted CIRCUMFLEX ARTERY: Mild luminal irregularities RIGHT CORONARY ARTERY: No significant disease noted COMPLICATIONS No Complications PROCEDURE MEDICATIONS Versed 1 mg IV Fentanyl 50 mcg IV Versed 1 mg IV Oxygen: 2 L/min via nasal cannula SUMMARY OF HEMODYNAMIC DATA Time AIR REST ECG 07:22:47 AO 144/96 (117) SA 08:15:38 AIR REST 08:28:22 Signed By Israel Foss MD On 03/02/2023 08:29:03 Israel Foss MD
== END 2023-03-02 09:55 | disposition home or self-care (01) ==
PROVIDERS: PCP Internal Medicine; Referring Provider Internal Medicine Cardiovascular Disease; Visit Provider Internal Medicine Cardiovascular Disease
DX: I20.89 Other forms of angina pectoris (principal); E11.9 Type 2 diabetes mellitus without complications; I25.10 Atherosclerotic heart disease of native coronary artery without angina pectoris; I83.893 Varicose veins of bilateral lower extremities with other complications; R94.39 Abnormal result of other cardiovascular function study
CPT/HCPCS: 93005; 93454; 99152; J7040; Q9967; C1769; C1894

== ENCOUNTER → 2023-03-26 | Outpatient (CLI) | payer MEDICARE, OTHER, SELFPAY ==
--- OUTSIDE RECORDS SUMMARY | 2023-03-26 07:34 | XMS RPT_ITS | CCD ---
Author Name Unknown Address [address] [place] [address] Organization [facility] Care Team Providers Care Stripe Matcher Name Role Phone FÉLIX ESCOBEDO Unavailable Unavailable Kranthi Bertrand Unavailable Unavailable Elina Jean Baptiste MD Primary Care Provider Elina Jean Baptiste MD Primary Care Provider FINESSE OCASIO Attending Unavail able FINESSE OCASIO Referring Unavail able TALAMPAS, ELINA D Primary Care Unavailable FINESSE OCASIO Attending Unavail able TALAMPAS, ELINA D Primary Care Unavailable TALAMPAS, ELINA D Attending Unavailable TALAMPAS, ELINA D Referring Unavailable TALAMPAS, ELINA D Primary Care Unavailable TALAMPAS, ELINA D Primary Care Unavailable TALAMPAS, ELINA D Primary Care Unavailable TALAMPAS, ELINA D Attending Unavailable TALAMPAS, ELINA D Primary Care Unavailable Allergies Allergy Classification Reported Allergen(s) Allergy Type Date of Onset Reaction(s) Facility (20 sources) erythromycin; Translations: [ERYTHROMYCIN] Drug Allergy 5 GI Upset [facility] Repository (20 sources) Amoxicillin / Clavulanate; Translations: [AMOXICILLIN-POT CLAVULANATE] Drug Allergy 8 Other: See Comments [facility] Work Phone: (6 sources) topiramate; Translations: [TOPIRAMATE] Drug Allergy 3 Intolerance [facility] Work Phone: Medications Current Medications Medication Drug Class(es) Dates Sig (Normalized) Sig (Original) doxycycline hyclate 100 mg oral tablet (1 source) Tetracycline-cla ss Drug Start: 01-15-2022 End: 01-25-2022 take 1 tablet by mouth twice daily doxycycline (VIBRA-TABS) 100 mg tablet Indications: Bacterial folliculitis Take 1 tablet by mouth twice daily for 10 days. 20 tablet 0 01/15/2022 01/25/2022 Active Completed/Discontinued Medications Medication Drug Class(es) Dates Sig (Normalized) Sig (Original) [id number] 200 actuat albuterol 0.09 mg/actuat metered dose inhaler (1 source) beta2-Adrenergic Agonist Start: 01-03-2021 End: 01-15-2022 take 2 puff(s) by inhalation every six hours as needed albuterol HFA (PROAIR HFA) 90 mcg/actuation inhaler Inhale 2 Puffs as instructed every 6 hours as needed. 8 g 0 01/03/2021 01/15/2022 Discontinued Problems Active Problems Problem Classification Problem Date Documented Date Episodic/Chronic Diabetes mellitus without complication (3 sources) Type 2 diabetes mellitus; Translations: [Type 2 diabetes mellitus without complications] Chronic Diabetes mellitus without complication (1 source) Abnormal glucose tolerance test; Translations: [Other abnormal glucose] Episodic Disorders of lipid metabolism (3 sources) Dyslipidemia; Translations: [Hyperlipidemia, unspecified] Chronic Immunizations and screening for infectious disease (1 source) Vaccination needed; Translations: [Encounter for immunization] Episodic Mood disorders (1 source) Depressive disorder; Translations: [Depression, unspecified depression type] Chronic Osteoarthritis (20 sources) Primary gonarthrosis, bilateral; Translations: [Bilateral primary osteoarthritis of knee] Onset: 07-28-2016 07-28-2016 Chronic Other ear and sense organ disorders (1 source) Acute otitis externa; Translations: [Swimmer's ear, right ear] Episodic Other endocrine disorders (1 source) Hyperinsulinism; Translations: [Other hypoglycemia] Chronic Other liver diseases (20 sources) Steatosis of liver; Translations: [Fatty (change of) liver, not elsewhere classified] Onset: 06-27-2013 06-27-2013 Chronic Other lower respiratory disease (2 sources) Snoring; Translations: [Snoring] Episodic Other non-traumatic joint disorders (1 source) Joint pain; Translations: [Pain in unspecified joint] Episodic Other nutritional; endocrine; and metabolic disorders (20 sources) Body mass index 40+ - severely obese; Translations: [Morbid (severe) obesity due to excess calories] Onset: 01-05-2008 08-10-2017 Chronic Other nutritional; endocrine; and metabolic disorders (3 sources) Metabolic syndrome X; Translations: [Metabolic syndrome] Chronic Other nutritional; endocrine; and metabolic disorders (4 sources) Severe obesity; Translations: [Morbid (severe) obesity due to excess calories] Chronic Other screening for suspected conditions (not mental disorders or infectious disease) (3 sources) Patient encounter status; Translations: [Encounter for screening mammogram for malignant neoplasm of breast] Episodic Other skin disorders (1 source) Bacterial folliculitis; Translations: [Other specified follicular disorders] Episodic Poisoning by nonmedicinal substances (2 sources) Insect sting; Translations: [Toxic effect of venom of other arthropod, accidental (unintentional), initial encounter] Onset: 11-14-2022 11-14-2022 Episodic Residual codes; unclassified (2 sources) Hypersomnia; Translations: [Hypersomnia, unspecified] Chronic Residual codes; unclassified (1 source) Family history of cardiac disorder; Translations: [Family history of ischemic heart disease and other diseases of the circulatory system] Episodic Skin and subcutaneous tissue infections (2 sources) Cellulitis of left lower limb; Translations: [Cellulitis of left lower limb] Onset: 11-14-2022 11-14-2022 Episodic Thyroid disorders (5 sources) Subclinical hypothyroidism; Translations: [Other specified hypothyroidism] Chronic Unclassified (1 source) Unknown / UNK(Unknown) Onset: 01-27-2017 Past or Other Problems Problem Classification Problem Date Documented Da te Episodic/Chronic Lymphadenitis (20 sources) Axillary lymphadenopathy; Translations: [Localized enlarged lymph nodes] Onset: 02-06-2017 02-06-2017 Episodic Unclassified (1 source) Onset: 01-27-2017 Varicose veins of lower extremity (20 sources) Varicose veins of lower extremity; Translations: [Varicose veins of bilateral lower extremities with other complications] Onset: 07-13-2007 07-28-2016 Episodic Results Test Name Value Interpretation Reference Range Facil ity Vital Signs Date Time Vital Sign Value Performing Clinician Michael patterson 07-30-2022 08:49-0400 Body weight 125.65 kg Finesse Benjamin MD Work Phone: [facility] 07-30-2022 08:49-0400 Diastolic blood pressure 88 mm[Hg] Finessevioleta Benjamin MD Work Phone: [facility] 07-30-2022 08:49-0400 Heart rate 96 /min Finessenereida Benjamin MD Work Phone: [facility] 07-30-2022 08:49-0400 SaO2% (BldA) [Mass fraction] 96 % Finessevioleta Benjamin MD Work Phone: [facility] 07-30-2022 08:49-0400 Systolic blood pressure 142 mm[Hg] Finessevioleta Benjamin MD Work Phone: [facility] 07-01-2022 10:08-0400 Body height 157.5 cm Finesse Benjamin MD Work Phone: [facility] 07-01-2022 10:08-0400 Body weight 131.45 kg Finesse Benjamin MD Work Phone: [facility] 07-01-2022 10:08-0400 Diastolic blood pressure 84 mm[Hg] Finesse Benjamin MD Work Phone: [facility] 07-01-2022 10:08-0400 Heart rate 73 /min Finesse Benjamin MD Work Phone: [facility] 07-01-2022 10:08-0400 SaO2% (BldA) [Mass fraction] 97 % Finessenereida Benjamin MD Work Phone: [facility] 07-01-2022 10:08-0400 Systolic blood pressure 130 mm[Hg] Finesse Benjamin MD Work Phone: [facility] 01-15-2022 08:04-0400 Body weight 119.75 kg Elina Jean Baptiste MD Work Phone: [facility] 01-15-2022 08:04-0400 Diastolic blood pressure 86 mm[Hg] Elina Jean Baptiste MD Work Phone: [facility] 01-15-2022 08:04-0400 Heart rate 78 /min Elina Jean Baptiste MD Work Phone: [facility] 01-15-2022 08:04-0400 SaO2% (BldA) [Mass fraction] 96 % Elina Jean Baptiste MD Work Phone: [facility] 01-15-2022 08:04-0400 Systolic blood pressure 122 mm[Hg] Elina Jean Baptiste MD Work Phone: [facility] Encounters Encounter Date Encounter Type Care Provider Facility Start: 03-04-2023 Refill Elina santos MD Work Phone: [facility] [place] Procedures Date Procedure Procedure Detail Performing Clinician Start: 01-09-2023 Spotlime-BIONTAttender COVI D-19 VACCINE () AGE 12+ YR Elina Jean Baptiste MD Work Phone: Start: 06-12-2020 Colonoscopy Elina tineo MD Work Phone: Start: 05-02-2020 Mammography Elina tineo MD Work Phone: Start: 04-30-2020 Lipid 1996 panel - S brock or Plasma Elina Jean Baptiste MD Work Phone: Plan of Treatment Date Care Activity Detail Author Start: 01-16-2032 Urine microalbumin profile [facility] Start: 06-12-2025 Colonoscopy COLONOSCOPY [facility] Start: 06-12-2025 COLORECTAL CANCER SCREENING COLORECTAL CANCER SCREENING [facility] Start: 04-30-2025 Lipid 1996 panel - Serum or Plasma Lipid Screening [facility] Start: 04-30-2025 LIPID SCREEN LIPID SCREEN [facility] Start: 04-30-2023 DIABETES SCREEN DIABETES SCREEN [facility] Start: 04-30-2023 Diabetes Screening Diabetes Screening [facility] Start: 11-28-2022 Covid-19 Vaccine () Covid-19 Vaccine () [facility] Start: 11-28-2022 Influenza vaccination [facility] Start: 08-19-2022 End: 10-19-2022 Thyrotropin [Units/volume] in Serum or Plasma TSH BLD Lab Routine Subclinical hypothyroidism Expected: 08/19/2022, Expires: 10/19/2022 [facility] Work Phone: Immunizations Immunization Date Immunization Notes Care Provider Caryl [email or web address] 01-09-2023 COVID-19 vaccine, ag e 12+ yr, season (PFIZER-BIONTECH) Immunization [place] Work Phone: [facility] Work Phone: 12-26-2022 influenza, injectabl e, quadrivalent, contains preservative Lula Currie SAP SOLUTION MANAGER CONSULTANTHalleSTATION MANAGER Work Phone: [facility] Work Phone: 01-15-2022 tetanus toxoid, reduced diphtheria toxoid, and acellular pertussis vaccine, adsorbed Elina Jean Baptiste MD Work Phone: [facility] 12-25-2021 influenza, seasonal, injectable Elina Jean Baptiste MD Work Phone: [facility] 12-25-2021 influenza virus vaccine, unspecified formulation Elina Jean Baptiste MD Work Phone: [facility] 12-10-2021 COVID-19 booster vaccine, age 12+ yr, bivalent (PFIZER-BIONTECH) Elina Jean Baptiste MD Work Phone: [facility] 02-19-2021 COVID-19 original vaccine, age 12+ yr, monovalent (PFIZER-BIONTECH - PURPLE TOP) Elina Jean Baptiste MD Work Phone: [facility] Work Phone: 07-18-2020 COVID-19 original vaccine, age 12+ yr, monovalent (PFIZER-BIONTECH - PURPLE TOP) Elina Jean Baptiste MD Work Phone: [facility] Work Phone: 06-27-2020 COVID-19 original vaccine, age 12+ yr, monovalent (PFIZER-BIONTECH - PURPLE TOP) Elina Jean Baptiste MD Work Phone: [facility] Work Phone: 02-22-2020 influenza, seasonal, injectable Elina Jean Baptiste MD Work Phone: [facility] 03-01-2019 zoster vaccine recombinant Elina Jean Baptiste MD Work Phone: [facility] Work Phone: 12-21-2018 zoster vaccine recombinant Elina Jean Baptiste MD Work Phone: [facility] Work Phone: 12-13-2018 influenza, injectabl e, quadrivalent, preservative free Elina Jean Baptiste MD Work Phone: [facility] 01-29-2017 influenza, injectabl e, quadrivalent, contains preservative Elina Jean Baptiste MD Work Phone: [facility] Payers Date Payer Category Payer Medicare MEDICARE MEDICAR E A AND B [id number] 2023-Present [phone] [place] [address] Medicare [id number] 2023 Private Health Insurance [facility] AARP SUPPLEMENT [id number] 2023-Present [phone] [address] [place] [address] Indemnity [id number] 2021 Unknown VICENTE SPANN O TIERA [id number] 2021-Present [phone] [address] [place] [address] O [id number] 2021 Unknown [id number] Unknown [id number] Social History Date Type Detail Facility Start: 01-15-2022 Tobacco smoking stat [facility] Never smoked tobacco [facility] Start: 10-19-2022 Tobacco use and exposure Smoke less tobacco non-user [facility] Start: 01-15-2022 End: 07-30-2022 Alcohol intake Current non-drinker of alcohol (finding) [facility] Start: 1960 Sex Assigned At Not on file C [facility] Start: 01-05-2022 End: 01-15-2022 Exposure to SARS-CoV-2 (event) Not sure [facility] Start: 03-04-2020 End: 07-30-2022 History of Social function [facility] [place] [facility] Start: 03-04-2020 End: 07-30-2022 Tobacco use panel [facility] Adult Depression Scr eening Assessment 0 [facility] Clinical Notes 07-13-2007 to 03-04-2023 Telephone Encounter - Tabitha Nunn LPN - 03/04/2023 9:40 AM ESTTelephone Encounter - Gia Sweeney - 03/04/2023 9:35 AM ESTTelephone Encounter - Anyi Mcgovern LPN - 01/08/2023 3:50 PM EDT Note Date & Type Note Facility 03-04-2023 Miscellaneous Notes Duplicate request. RX for Metformin 750mg written/escripted to [facility] 03/03/2023. Tabitha Nunn LPN Patient has been identified by name and date of : Yes Requested Prescriptions Pending Prescriptions Disp Refills metFORMIN ER (GLUCOPHAGE XR) 750 mg 24 hr tablet 60 tablet 5 Sig: Take 2 tablets by mouth daily with dinner. RX INSTRUCTIONS: Patient aware RX will be sent to pharmacy. No need to notify patient. Gia Sweeeny documented in this encounter [facility] 01-08-2023 Miscellaneous Notes Patient has been identified by name and date of : Yes, Provider Markel Date 01/08/23 Time 3:51pm Pharmacy phones for refill(s): Requested Prescriptions Pending Prescriptions Disp Refills levothyroxine (SYNTHROID) 50 mcg tablet [Pharmacy Med Name: LEVOTHYROXINE 50 MCG TABLET] 30 tablet 2 Sig: TAKE 1 TABLET BY MOUTH ONCE DAILY. TAKE ON EMPTY STOMACH. FOR THYROID. Date of last office visit in primary care: 11/14/22 Date of next office visit in primary care: 02/03/2023 Last 2 Encounter Wt Readings: Date: Wt: 07/30/2022 125.6 kg (277 lb) 07/01/2022 131.5 kg (289 lb 12.8 oz) Previous labs/tests for medication: Thyroid: TSH (uU/mL) Date Value 08/07/2018 3.490 Please advise. Thank you. Anyi Mcgovern LPN. documented in this encounter [facility] 11-14-2022 Note HNO ID: [id number] Author: Elina Jean Baptiste MD Service: ? Author Type: Physician Type: Progress Notes Filed: 12/16/2022 10:41 AM Note Text: This note was created using [employer]. Subjective Leonel Rutledge is a 62 year old female. Patient presents with: Acute Visit: Insect bite/sting on Thursday SUBJECTIVE: Leonel Rutledge is a 62 year old year old lady here today for follow up appointment for review of medical conditions: ?sting or spider bite. Thursday with feeling like something poked her posterior thigh when sat on a rocker and that night noted firm and red swelling but the got worse since then. Had serosanguinous drainage but no pus. Redness and hardness of skin kept extending around towards front of thigh, PAST MEDICAL HISTORY Diagnosis Date Calculus of gallbladder with other cholecystitis, without mention of obstruction 07/13/2007 Fatty liver 06/27/2013 OVERWEIGHT 01/05/2008 Primary osteoarthritis of both knees 07/28/2016 Varicose veins of lower extremities with other complications 07/13/2007 Current Outpatient Medications Medication Sig levothyroxine (SYNTHROID) 50 mcg tablet TAKE 1 TABLET BY MOUTH ONCE DAILY. TAKE ON EMPTY STOMACH. FOR THYROID. metFORMIN ER (GLUCOPHAGE XR) 750 mg 24 hr tablet Take 2 tablets by mouth daily with dinner. Cholecalciferol, Vitamin D3, 50 mcg (2,000 unit) cap Take 1 Each by mouth once daily. naproxen sodium (ALEVE ORAL) Take by mouth. om 3/E/linol/ala/oleic/gla/lip (OMEGA 3-6-9 ORAL) Take 2 tablets by mouth once daily. atorvastatin (LIPITOR) 20 mg tablet Take 20 mg by mouth once daily. No current facility-administered medications for this visit. Review of Systems Objective BP (P) 122/80 (BP Site: Left Arm, BP Position: Sitting, BP Cuff Size: Large Adult) Pulse (P) 78 Temp (P) 37.1 ?C (98.7 ?F) (Tympanic) Resp (P) 16 Wt (P) 125.6 kg (277 lb) BMI (P) 50.66 kg/m? Physical Exam Skin: Comments: See picture under images for cellulitis posterior left thigh. No streaking up leg. Assessment and Plan Encounter Diagnosis ICD-10-CM 1. Insect stings, accidental or unintentional, initial encounter T63.481A mupirocin (BACTROBAN) 2 % ointment sulfamethoxazole-trimethoprim (BACTRIM DS) 800-160 mg per tablet 2. Cellulitis of left lower extremity L03.116 mupirocin (BACTROBAN) 2 % ointment sulfamethoxazole-trimethoprim (BACTRIM DS) 800-160 mg per tablet Above issues addressed with patient. Patient involved in shared decision making for management of medical issues. History and medications reviewed. Epic updated as needed Refills and/or prescriptions taken care of and meds adjusted as indicated after reviewed history, exam and labs. Health Maintenance reviewed. Updated record and/or ordered tests as recorded. Encouraged on efforts at healthy diet and regular exercise and adequate sleep. Elina Jean Baptiste MD [facility] 11-14-2022 History of Present illness Narrative Images from the original note were not included. This note was created using [employer]. Subjective Leonel Rutledge is a 62 year old female. Patient presents with: Acute Visit: Insect bite/sting on Thursday SUBJECTIVE: Leonel Rutledge is a 62 year old year old lady here today for follow up appointment for review of medical conditions: ?sting or spider bite. Thursday with feeling like something poked her posterior thigh when sat on a rocker and that night noted firm and red swelling but the got worse since then. Had serosanguinous drainage but no pus. Redness and hardness of skin kept extending around towards front of thigh, PAST MEDICAL HISTORY Diagnosis Date Calculus of gallbladder with other cholecystitis, without mention of obstruction 07/13/2007 Fatty liver 06/27/2013 OVERWEIGHT 01/05/2008 Primary osteoarthritis of both knees 07/28/2016 Varicose veins of lower extremities with other complications 07/13/2007 Current Outpatient Medications Medication Sig levothyroxine (SYNTHROID) 50 mcg tablet TAKE 1 TABLET BY MOUTH ONCE DAILY. TAKE ON EMPTY STOMACH. FOR THYROID. metFORMIN ER (GLUCOPHAGE XR) 750 mg 24 hr tablet Take 2 tablets by mouth daily with dinner. Cholecalciferol, Vitamin D3, 50 mcg (2,000 unit) cap Take 1 Each by mouth once daily. naproxen sodium (ALEVE ORAL) Take by mouth. om 3/E/linol/ala/oleic/gla/lip (OMEGA 3-6-9 ORAL) Take 2 tablets by mouth once daily. atorvastatin (LIPITOR) 20 mg tablet Take 20 mg by mouth once daily. No current facility-administered medications for this visit. Review of Systems Objective BP (P) 122/80 (BP Site: Left Arm, BP Position: Sitting, BP Cuff Size: Large Adult) Pulse (P) 78 Temp (P) 37.1 C (98.7 F) (Tympanic) Resp (P) 16 Wt (P) 125.6 kg (277 lb) BMI (P) 50.66 kg/m Physical Exam Skin: Comments: See picture under images for cellulitis posterior left thigh. No streaking up leg. Assessment and Plan Encounter Diagnosis ICD-10-CM 1. Insect stings, accidental or unintentional, initial encounter T63.481A mupirocin (BACTROBAN) 2 % ointment sulfamethoxazole-trimethoprim (BACTRIM DS) 800-160 mg per tablet 2. Cellulitis of left lower extremity L03.116 mupirocin (BACTROBAN) 2 % ointment sulfamethoxazole-trimethoprim (BACTRIM DS) 800-160 mg per tablet Above issues addressed with patient. Patient involved in shared decision making for management of medical issues. History and medications reviewed. Epic updated as needed Refills and/or prescriptions taken care of and meds adjusted as indicated after reviewed history, exam and labs. Health Maintenance reviewed. Updated record and/or ordered tests as recorded. Encouraged on efforts at healthy diet and regular exercise and adequate sleep. Elina Jean Bapitste MD documented in this encounter [facility] 11-03-2022 Miscellaneous Notes Patient has been identified by name and date of : Yes, Provider Markel Date 11/03/22 Time 12:47pm Pharmacy phones for refill(s): Requested Prescriptions Pending Prescriptions Disp Refills levothyroxine (SYNTHROID) 50 mcg tablet [Pharmacy Med Name: LEVOTHYROXINE 50 MCG TABLET] 30 tablet 2 Sig: TAKE 1 TABLET BY MOUTH ONCE DAILY. TAKE ON EMPTY STOMACH. FOR THYROID. Date of last office visit in primary care: 01/15/22 Last 2 Encounter Wt Readings: Date: Wt: 07/30/2022 125.6 kg (277 lb) 07/01/2022 131.5 kg (289 lb 12.8 oz) Please advise. Thank you. Anyi Martinez LPN documented in this encounter [facility] 08-31-2022 Miscellaneous Notes Noted. Thank you for the update. Pt canceled her appointment for wt management for the time being as she is having a heart cath done and follow up. Pt stated that when the director internal audit gives her the ok to proceed she will reschedule with our office. Yu Hurst LPN documented in this encounter [facility] 08-08-2022 Miscellaneous Notes Detailed message left on secure VM advising patient of provider's message. as long as have all the info needed to order the sleep study, can file order Pt called in and reports she had a sleep study ordered by Dr Oscar Giles in OBGYN to help with weight loss. She states Pawel from [facility] sleep lab will be sending an order to PCPs office to continue the process as Pts insurance won't cover the study under the OBGYN, it has to be from the PCP. Pt is asking if the provider would be willing to continue the process for her, so she can get the sleep study done. documented in this encounter [facility] 08-06-2022 Miscellaneous Notes Spoke with patient. Given message from provider's office. Patient verbalizes understanding. Latonya Cervantes RN LEFT MESSAGE FOR PATIENT TO CALL OFFICE. Please let her know we will increase the dose from 25 mcg daily to 50 mcg daily. New RX sent. TC Leonel, she is taking Levothyroxine consistently, has not missed any doses. Taking medication when she gets up in the morning, not eating for 2 hours while she does her devotional. Please review & advise. Tabitha Nunn LPN Left message to call & speak to a nurse. Tabitha Nunn LPN See scanned documents for lab work. [facility] 07/02 6.10. Check to see if consistently taking levothyroxine. If so may need increased dose Patient has been identified by name and date of : Yes, Patient phones for refill(s): Requested Prescriptions Pending Prescriptions Disp Refills levothyroxine (SYNTHROID) 25 mcg tablet [Pharmacy Med Name: LEVOTHYROXINE 25 MCG TABLET] 30 tablet 2 Sig: TAKE 1 TABLET BY MOUTH ONCE DAILY. TAKE ON EMPTY STOMACH. FOR THYROID. Date of last office visit in primary care: 07/23/2022 Physical: 02/03/2023 Last 2 Encounter Wt Readings: Date: Wt: 07/30/2022 125.6 kg (277 lb) 07/01/2022 131.5 kg (289 lb 12.8 oz) Previous labs/tests for medication: Thyroid: TSH (uU/mL) Date Value 08/07/2018 3.490 Please advise. Thank you. Tabitha Nunn LPN documented in this encounter [facility] 07-30-2022 Note HNO ID: [id number] Author: Finesse Benjamin MD Service: ? Author Type: Physician Type: Progress Notes Filed: 07/30/2022 3:01 PM Note Text: Patient Summary: is 62 year old female who presents for follow-up evaluation of her obesity/weight management. In our previous visits we have discussed lifestyle intervention including a nutrition recommendations and physical activity optimization. Leonel Rutledge is here today for follow up evaluation for phentermine and metformin. Her last office visit was 2 weeks ago. Assessement/plan from last visit: Sleep study, Started Phentermine and Metformin Interval History Pt reports having some episodes of feeling dizzy. Is seeing cardiology- will be doing stress test. Otherwise feels fine and is happy with weight loss. She feels the medication is helping to give her a boost. She reports that the medication is helping to curb some of her cravings. She is eating healthier. She is concentrating on getting more protein. She is trying to move more but because of lower back pain and knee pain that is difficult. She is taking the metformin without any concerns. The phentermine she is wondering if is making her dizzy. She recently saw cardiology and apparently had an abnormal EKG and will now be having a stress test. Exercise: none Stress: stable Sleep: stable Weight loss since last vist: Weight and Change in Weight Flowsheet Row Most Recent Value Weight 277 lb (125.6 kg) Change in Weight -5.806 kg PAST MEDICAL HISTORY Diagnosis Date Calculus of gallbladder with other cholecystitis, without mention of obstruction 07/13/2007 Fatty liver 06/27/2013 OVERWEIGHT 01/05/2008 Primary osteoarthritis of both knees 07/28/2016 Varicose veins of lower extremities with other complications 07/13/2007 Current Outpatient Medications Medication Sig Dispense Refill topiramate (TOPAMAX) 50 mg tablet Take 1 tablet by mouth daily at bedtime. 1/2 tab daily for 2 weeks then 1 tablet daily. 30 tablet 0 metFORMIN ER (GLUCOPHAGE XR) 750 mg 24 hr tablet Take 1 tablet by mouth daily with dinner. 60 tablet 5 Phentermine HCl 15 mg capsule Take 1 capsule by mouth daily before breakfast for 30 days. 30 capsule 0 semaglutide (OZEMPIC) 0.25 mg or 0.5 mg (2 mg/3 mL) pen Inject 0.25 mg subcutaneously one time a week. (Patient not taking: Reported on 07/30/2022) 2 mL 0 levothyroxine (SYNTHROID) 25 mcg tablet Take 1 tablet by mouth once daily. Take on empty stomach. For thyroid. 30 tablet 2 naproxen sodium (ALEVE ORAL) Take by mouth. om 3/E/linol/ala/oleic/gla/lip (OMEGA 3-6-9 ORAL) Take 2 tablets by mouth once daily. No current facility-administered medications for this visit. ROS Currently denies any chest pain or shortness of breath. BP 142/88 Pulse 96 Wt 277 lb (125.6 kg) SpO2 96% BMI 50.66 kg/m? Physical Exam Gen: female in NAD Assessment/Plan: Leonel Rutledge is a 62 year old yo Female with class 3 obesity who presented today for follow up for supervised weight loss. Discussed with the patient that she needs to discontinue the phentermine at this time. This is contraindicated if she is having any type of cardiac symptoms and currently she is being worked up by cardiology. If she is cleared this may be considered in the future. At this time we will continue the metformin and start her on topiramate. The rationale for topiramate was reviewed with the patient. She has no contraindication to start this. I discussed the common side effects of topiramate including fogginess, depression, paresthesias, nephrolithiasis. Discussed increasing her water intake with limited. We discussed true lemon or sugar-free lemonade. Discussed when to stop this medication. Discussed how to titrate this medication up appropriately. All questions were answered. Discussed that she is limited for her physical activity at this time due to pain but I want her to continue to move is much as possible. I want her to continue to concentrate on her protein intake and decreasing her carbohydrates. I would like her to decrease her carbohydrates to less than 100 g/day. Her sleep study is scheduled for August 07. (E88.81) Metabolic syndrome (primary encounter diagnosis) Comment: Plan: (R73.09) Elevated glucose tolerance test Comment: metformin will increase dose Plan: (E66.01, Z68.43) Class 3 severe obesity with body mass index (BMI) of 50.0 to 59.9 in adult, unspecified obesity type, unspecified whether serious comorbidity present (HCC) Comment: Plan: (E03.9) Hypothyroidism, unspecified type Comment: Plan: on synthroid 25mcg now (E78.5) Dyslipidemia Recheck labs later date Follow up in 4 weeks Medical Decision Making: Problems: Moderate: 2+ stable chronic illnesses Risk: Moderate: Drug management Medical Decision Making Level: 4 - Moderate Finesse Gramajo MD [facility] 07-30-2022 Instructions Finesse Benjamin MD - 07/30/2022 3:00 PM EDT Images from the original note were not included. TOPIRAMATE -- Take one tablet (25mg) every night for 2 weeks -- Then increase to 2 tablets at bedtime (50 mg) if there is no change in your appetite, cravings or weight. Or can move them up to dinner time- or you can do 25 mg in the am and 25 mg in the evening if it doesn't make you tired. -- You can take the tablet it at night at first (because of potential sleepiness side effects), but then you can take earlier around dinner after you have started the medication for a few days. You also may be able to take it in the morning if easier. -- We may increase the dose to 3 tablets (75mg) a few weeks later if there is no change with 2 tablets (50mg), either 1 in the morning, then 2 in the evening at dinner or bedtime or 3 (75 mg) in the evening. The maximum is usually 50 mg in the am and 50 mg in the evening or 100 mg in the evening and continue to increase the medication in this way (usually no more than 150mg). If at any point you are feeling the effects of the medication you can stay at that dose or if you experience side effects you can decrease it to the previous dose. -- Please see the handout to review the potential side effects and to explain this further -- Please let me know if you experience any changes in your vision, worsening depression or mood problems, or an increase in suicidal thoughts or behaviors. --This medication should NOT be combined with alcohol. Risks of drinking alcohol while taking this medication include mental and psychological side effects, including confusion, dizziness, drowsiness, and depression. -- There is an increased risk for oral clefts when topiramate is used in the first trimester of . -- There is a possible decrease in contraceptive efficacy when using estrogen-containing control with topiramate, please use a back up form of control such as condoms and monitor for throughout treatment. -- If you decide that you would like to get or if you have any of these side effects please let me know and we can safely discontinue the medication. - If you are on loop diuretic or thiazide diuretic we will want to monitor your potassium level, especially if you have a history of low potassium. - It is important to taper off of this medication when we finished with treatment, typically decreasing the dose 25 mg a week. Stopping Topiramate abruptly can cause irritability, anxiety and difficulty concentrating. -- The exact mechanism of topiramate on energy balance regulation is not clearly understood. Topiramate affects body mass index, fasting kwknbwf-mm-gtcuhzc ratio, and serum leptin and cortisol levels. It has shown to improve hypothalamic insulin and leptin signaling and action and reduce obesity in mice. These changes may be card factors in weight loss due to topiramate. Topiramate (toe pyre a mate) What are the common names? Topamax Why is this medication prescribed? Topiramate is an anti-epileptic medications which has been approved by the FDA for patients 10 years of age or older for treatment of seizures. However, topiramate also has other uses such as the treatment of migraines. It also causes decrease in appetite and weight loss. The mechanism of weight loss is thought to be through inhibition of mitochondrial enzymes involved in energy expenditure and metabolism. Topiramate may work by helping you feel less hungry, less driven to eat, more satisfied with less food. What special precautions should I follow? Before having topiramate prescribed, tell your doctor and pharmacist: If you have allergies to any component of topiramate If you are , plan to become , are breast-feeding, or if you become while taking topiramate What are the warnings and precautions for this medication? Immediately discontinue the medicine and seek medical help if you have severe cognitive/neuropsychiatric adverse symptoms or eye symptoms. Cognitive/neuropsychiatric adverse events: symptoms may include confusion, psychomotor slowing, difficulty with concentration/attention, difficulty with memory, speech or language problems, particularily word-finding difficulties, somnolence or fatigue Acute myopia and secondary angle closure glaucoma, usually within 1 month of starting treatment: symptoms may include blurred vision, redness and/or pain in the eye Oligohydrosis (decrease sweating) and hyperthermia (elevation in body temperature) Increase in suicidal behavior or ideation Metabolic acidosis, non-gap hyperchloremic (decreased serum bicarbonate below normal levels) resulting in hyperventilation or fatigue Kidney stones Paresthesias (numbness or tingling in hands or feet) Ataxia Dizziness Increase in urination frequency Drug interactions. Use of monamine oxidase inhibitors (MAOI s), valproic acid, Caution use with dehydration or diarrheal illness, hepatic or renal impairment In case of emergency/overdose In case of overdose, call your local poison control center at or call local emergency services at [phone]. What other information should I know? Keep all appointments with your doctor and the laboratory. Do not let anyone else take your medication. Topiramate use needs to be monitored closely. Prescriptions may be refilled only a limited number of times. Keep a written list of all of your prescription and nonprescription (jluj-don-zskhqsm) medicines, in addition to vitamins, minerals, or other dietary supplements. How should I monitor while on this medication? Your doctor will check your baseline kidney function and electrolytes prior to starting this medication, then periodically. Continue to improve your dietary and physical activity habits as the combination works best while on this medication. Start out by taking the medication at bedtime as it can cause fatigue and sleepiness. Be sure to eat regular meals. Less hunger does not make it appropriate to skip meals. Make sure to have an eye exam, including the pressure in your eyes (intra-ocular pressure), once a year. What should I do if I forget a dose? Skip the missed dose and continue your regular dosing schedule the next day. Do not take a double dose to make up for a missed one. Sources [employer]: http://www.ncbi.nlm.nih.gov/pubme dhealth/HJN4043383/ Drugs.com http://www.drugs.com/pro/topirama te.html When you take medications like TOPAMAX and ZONEGRAN they tend to cause an imbalance in your pH levels. This imbalance causes side effects like foggy head, forgetfulness, confusion, difficulty recalling simple words or names, and tingling in your hands and feet. Citric acid may help to neutralize the imbalance caused by the medication. Also stay hydrated! With low fluid intake, urine output is decreased and urine flow is slower, both of which increase the risk of pH imbalance. Avoid soda as well. Increase the proportion of fruits and vegetables and reduce your daily protein intake to 0.8-1.0 g per kg body weight. Total Immersion Link: Stur Hydration Benesight : TRUE LEMON Water Enhancer True Lemon ([employer]) If neither of these are effective you can try: Euphasia https://BioheartdbVicino. Simbiosis/pages/ngdkwle-nhub-bfboayv Sources https://www.ncbi.nlm.nih.gov/pmc/ articles/ETQ6504527/ https://www.ncbi.nlm.nih.gov/pmc/ articles/ZCF5438228/ 15 gram carb fruit options Berries have the lowest sugar content 1/2 cup diced honeydew melon - 8 carbs One half medium grapefruit - 10.5 carbs 1 medium orange -15.5 carbs 1 medium peach -14.5 carbs 1/2 cup fresh cranberries - 6.5 carbs 1 medium plum -7.5 carbs 1/2 cup raspberries -7.5 carbs 1 medium Priti -9 carbs 1/2 cup fresh pineapple -11 carbs 1 medium nectarine - 15 carbs 1/2 cup blueberries - 11 carbs - may actually help you lose weight 1 medium kiwi without skin - 11 carbs 1/2 cup fresh cherries -11 carbs 1 medium tangerine -12 carbs 1/2 cup sliced brendon -14 carbs 1/2 medium banana 1/2 c grapes 1/2 medium apple - 12.5 carbs 5 gram carb vegetable options 1 cup raw OR cup cooked: Asparagus Cabbage Spinach Peppers Green beans Carrots Tomato [place] sprouts Cauliflower Lettuce Snap peas Broccoli Eggplant Zucchini Turnips Spaghetti squash 15 gram carb vegetable options cup cooked green peas cup cooked corn or hominy corn on the cob, large (5 oz) cup cooked sweet potato, plain cup cooked potato, plain 1 small potato or sweet potato 1 cup winter squash (pumpkin, acorn, butternut) 1 cup marinara or pasta sauce - check label cup tomato juice cup tomato puree Beans, Seeds, Nuts cup cooked beans (kidney, delgado, red, green, etc.) cup cooked lentils cup baked beans 4 tablespoons nut butter 30 High Protein Snacks 1. Jerky 2. [place] mix without or minimal dried fruit 3. [place] roll-ups 4. [place] yogurt 5. Veggies and yogurt dip 6. Tuna 7. Hard-boiled eggs 8. Peanut butter celery sticks 9. No-bake energy bites 10. Cheese slices/ Cheese Stick 11. Handful of almonds 12. Roasted chickpeas 13. Hummus and veggies 14. Cottage Cheese 15. Celery/fruit with peanut butter 16. Beef sticks (Grass-fed, natural ingredients) 17. Protein bars 18. Canned [place] 19. [place] pudding 20. Homemade granola - rolled oats, nuts, and a little sweetener like honey- 1/4 cup serving 21. Pumpkin seeds 22. Nut butter 23. Protein shakes 24. Edamame 25. Avocado and chicken salad 26. Fruit and nut bars - natural ingredients without added sugar. 27. Lentil salad 28. Overnight oatmeal 29. Egg muffins 30. Leftover protein or lunch meat 10 Easy Ways to Increase Your NEAT (Non-exercise activity thermogenesis) One of the best ways to lose those those extra pounds for good and keep it off is to make daily habit changes that can help burn those extra calories during activities you would normally do regardless. What I am talking about is increasing your NEAT. What is NEAT? It is Non-exercise activity thermogenesis. It is the activity that you are able to add into your daily routine outside of the gym that can help you in the long run. It can help you lose those ten pounds not this month, but over the next 12 months. In the grand scheme of things, would you not want to be ten pounds item processing clerk come next year? Now it is time for me to show you how. For a moment, imagine for me that you we are back before you started going to the gym. Imagine you were slowly gaining about a pound every two to three months. After 3 years of not exercising or working out you realized you are 10 pound heavier. All your clothes feel a little tighter and you just do not feel good in your own skin like how you used to. One day climbing up a flight of stairs you become way too easily winded, and not just that, but your knees are hurting. For some people, this is all too real. That was the wake up call to go to the gym to start exercising. Yet, why do you exercise when you gain weight? The reason is because you were taught that when you begin exercising, you begin to lose the weight you previously put on. The reason for the weight loss is because you have started to burn more calories compared to what you have consumed through your diet. When it comes to fat loss, you want to have a calorie deficit of about 500 calories a day so that about after a week you will be 3500 calories short. Your body is naturally programmed then to pull those calories of energy out of your stored fat. One pound of fat is roughly equal to 3500 calories. So when you burn those calories at the gym and create that calorie deficit you are burning through that stored fat. Another way you can create a calorie deficit is by changing up your diet. If you reduce the calories you eat by a small margin to create a 500 calories deficit then the same result will happen of burning a pound of stored body fat for every 3500 calories you did not eat that you may normally would have. Now finally for NEAT to come into play. We are going through your normal daily life but now you add some extra Non-exercise activity thermogenesis. You add some daily habits that helped you burn extra calories throughout your day. These extra calories that you burn add to your total daily energy expenditure which means that instead of those calories you were eating becoming stored as fat, you burned those calories, without even stepping into a gym. That is the power of NEAT. Sadly, most individuals do not know of the power of NEAT so most people do gain those ten pounds. Still, NEAT can help you lose that weight gained. Let s say now that you know the power of NEAT you want to incorporate it as part of your daily life and habits with that a positive change of dietary habits and a new exercise program. So let us say you are at the gym going three times a week and hike once a week burning a total of 2500 calories at the end of the week. With that you are improving your eating habits and diet and that has created an additional 2000 calories deficit at the end of the week. So so far a nice sum total of 4500 calories burned in just a single week. Now with a little magical NEAT you add just 100 calories a day of extra activity into your life and therefore an extra 700 calories that you burned in one week! So now you have 5200 calories a week burned between your diet, exercise, and nonexercise activity. Now over a course of a month you have 28,000 calories burned. Over three months time you have 84,000 calories. If you were to burn and have a calories deficit of 84,000 calories that is a sum total of 24 pounds lost! Now if you did not include NEAT into that math you would have lost 21.6 pounds. Still a great amount lost, but after a year you are missing out on those extra 10 pounds you could have lost by barely making a change. Here are 10 examples of NEAT to help you lose weight: WALKING: Walking is an easy activity nearly every one of us can accomplish. All we have to do is increase the number of steps we walk everyday and over time the extra energy used comes from our stores fat. It is also fairly simple to increase the number of steps you walk throughout the day. You can park your car down the street from your house. You can park at the farthest spot when shopping. You can go for an easy morning walk while you sip your morning cup of [place]. All the steps will add up over time. COOKING: Most of us cook at least one meal throughout the day. During this time you can add in some simple movements. When I cook, I like to squat deep when I grab a palmer out of the cabinet. When I m reaching for the spices on the shelf I throw in a push-up. When I m waiting for the vegetables to steam I simply bounce or fidget in place while reading or going on social media. The point is while I m coming I am not standing still. For those times I m eating out, I will fidget in line by bouncing on one foot for a bit then switch it up. Sometimes I ll squat while waiting for my coffee. Again, the point is I keep moving. TELEVISION: I watch TV. I would even be lying to you if I said I hardly watch TV. I would be lying to you if I said I sit or lay down and watch TV. When watching my programs or sports on TV I am stretching. I lay down and stretch out my muscles. I ll use the couch as a steady surface to stretch my back out, my shoulders out, my legs out. I never just sit down and watch TV. I stretch and stay active and honestly it is one of the best habits I have created. It has helped me stay loose and I no longer feel guilty about watching TV. It is a win win. Morning Routine: Everyone has a morning routine that they go through during their work week. This is an easy time to add some extra movement to your day. The moment you get out of bed, do some push-ups. You do not even have to define a specific amount. Just drop down and give me however many you feel like. When you go to start the coffee pot, I want you to give me some jumping jacks. The moment you go and brush your teeth, give me some squats before you start or maybe even while you are brushing your teeth if you feel like really multitasking. Going out to get the morning paper, I want a burpee when you get to that paper. Just add in some simple movements or tasks that are associated with every stop along your morning routine. Evening Routine Same concept of your morning routine except I want you to do more stretching and more of a yoga pose idea with it. When you are going around the house shutting off the lights, take a deep breath and reach up and then down towards your toes. Locking the doors, I want a nice deep lunge stretch to help loosen up those hip flexors. Do simple more relaxing movements. Not only will these little movements help burn those extra calories, they are going to help mentally and physically relax you before you sleep. Your Car Most people are getting in and out of their car at least once a day. Every time you are getting into your car, add some movement. You can do jumping jacks, lunges, squats, some hip hinges, do something. I have known people where they will do as many reps of squats for each minute they expect to be driving. If they were going on a long road trip, they would break up those squats during the rest breaks. This is a very simple way to add in those extra calories burned. Personally I like to try getting into and out of my car without using my hands. Some days I will try to mix up only using one foot or the other with no hands trying to carefully slid out of the car. Ditch the Car: If you do not have a crazy commute to work or when running errands or even going out to eat ditch the car for the evening. Many people forget that they can walk places and it will in fact not take long at all. The walk will make you feel good, burn calories, and will help out our environment. Personally I try to ride my bike to work as often as I can. I know others who go and walk to the grocery store when buying only a handful of items. I know of others who take an uber to work in the morning and walk the distance home. The point is at least once a week ditch the car and ride your bike, walk, skate, or even run somewhere you need to go. Work Do not just sit there. If you have a job where you end up sitting down for an extended period of time you are doing harm to yourself. Luckily you can save yourself. Every 5 minutes you sound get up and stand up and squat down and then sit right back down. Anytime you have a break in your workflow, do a little twist in the chair stretching your back out. If you are stuck there reading your emails, add some arm circles in. You won t even have to get out of your chair for those arm circles. All the little movements add up. So please, do it for yourself and do not just sit there. You & Your Significant Other You don t have to be to have a significant other. Exercising with a bestie, a girlfriend or boyfriend or even a pet is a great way to spend time and feel great. Who does not like a long romantic walk down the beach in the sand? Who would not want to go walk or a hike and enjoy nature? Go and alverto your dog on all four and be a dog for fifteen minutes. They will enjoy it and so will you. The point is get moving with the your better half and you will be better for it. It will definitely bring the two of you closer as well. Clean Everything Cleaning is a very efficient way to multitask. You are getting those extra calories burned while cleaning whatever you wanted clean anyways. The fun part is make a game out of the cleaning. When I wash my car I see absolutely how fast I can get my car washed and clean. When I begin to vacuum I try to do everything while balancing on one leg or the other. When I sweep my house, I manager trade the broomstick like I am trying to break it. The point is make it fun to clean and make it a good challenge. I put my laundry basket away from the washer and take jump shots with all my clothes into the washer. This is my favorite one and I highly recommend it if you have a desktop manager. The card is that you remember why you are doing every thing. Keep in mind your own goal. I want you to remember on why you are trying to lose weight in the first place. If you focus on that goal and remember to have fun with all these easy steps and tricks to add those extra calories burned, you will get to where you want to be and have fun in the process. Losing weight is not necessarily hard work. It can be fun if you are open to the idea and willing to look a bit goofy at times. I promise you though every one of these 10 ways to increase your daily NEAT will be effective and will all add up in the end. A great book that I would recommend for anyone reading is the Slight Edge. The book s main theme is that it is the little things done daily that lead to the biggest change. http://www.pyco/10-easy- wmqx-hc-kbbikzcu-your-neat/ METABOLIC SYNDROME OVERVIEW Metabolic syndrome, also called insulin resistance syndrome or syndrome X, is not a disease but a group of characteristics. These characteristics include obesity, high blood pressure, elevated blood sugar levels, and high triglycerides (fat-like substances in the blood). Having a combination of these characteristics increases your risk of developing type 2 diabetes and heart disease. Keeping your weight, blood sugar, and cholesterol and triglyceride levels under control can help you to live longer and decrease your risk of heart attack and stroke. There is controversy as to whether metabolic syndrome is really a syndrome. More detailed information about metabolic syndrome is available by subscription. (See Metabolic syndrome (insulin resistance syndrome or syndrome X) .) WHAT IS METABOLIC SYNDROME?Metabolic syndrome is a group of characteristics. You do not need to have all of the characteristics to have it. However, a person with one characteristic is more likely to have others. Most expert groups define metabolic syndrome as the presence of three or more of the following characteristics in a person: -Obesity, especially in the abdominal area (defined by some groups as a waist size greater than 94 to 102 cm [38 to 41 in] in men or greater than 80 cm [32 in] in women) -impaired glycemia (fasting blood sugar of 100 to 125 mg/dL [5.6 to 7 mmol/L] or glycated hemoglobin [A1C] 5.7 to 6.4 percent) -increased blood pressure (130/85 mmHg or higher) or if you take medicine for high blood pressure -Increased fasting levels of triglycerides (greater than 150 to 180 mg/dL or 1.7 mmol/L) or decreased fasting high-density lipoprotein (HDL) cholesterol (less than 40 mg/dL or 1 mmol/L for men or 50 mg/dL or 1.3 mmol/L for women) or if you take medicine for high triglycerides or low HDL cholesterol HOW COMMON IS METABOLIC SYNDROME? Metabolic syndrome is becoming increasingly common. In one study performed between 1998 and 2001, more than 34 percent of participants were classified as having metabolic syndrome [1]. This number is significantly increased from a similar study performed between 1987 and 1993, when 22 percent of people had metabolic syndrome. The following factors are thought to increase the risk of developing metabolic syndrome: -Being overweight (body mass index of 25 kg/m2 or more) (calculator 1 and calculator 2) -Menopause (in women) -Increasing age -Smoking -Eating a high-carbohydrate diet -Lack of physical activity -Family history of diabetes or metabolic syndrome Health risks associated with metabolic syndrome Diabetes -- Type 2 diabetes is much more likely to develop among people with metabolic syndrome [2]. Healthy lifestyle changes, such as weight loss and exercise, can help to reduce the risk of developing type 2 diabetes. (See Patient education: Type 2 diabetes: Overview (Beyond the Basics) .) Cardiovascular disease -- People with metabolic syndrome are at increased risk for developing cardiovascular disease. Cardiovascular disease includes coronary artery disease (collections of fatty plaques inside the heart's blood vessels), cerebrovascular disease (collections of fatty plaques inside the blood vessels leading to the brain), and high blood pressure. Cardiovascular disease can lead to heart attack, stroke, or angina (chest pain). METABOLIC SYNDROME DIAGNOSISMetabolic syndrome is diagnosed based upon a physical exam and a blood test of your blood sugar (either fasting [before breakfast] blood sugar or a test any time of A1C), cholesterol, and triglyceride levels. A description of how blood glucose and cholesterol levels are measured is available separately. (See Patient education: Type 2 diabetes: Overview (Beyond the Basics) and Patient education: High cholesterol and lipids (Beyond the Basics) .) METABOLIC SYNDROME TREATMENT The goals of treatment for metabolic syndrome are to: -Reduce or eliminate underlying problems (eg, obesity, lack of activity) by losing weight and becoming more active -Treat cardiovascular risk factors, such as high blood pressure and cholesterol, if these problems persist despite losing weight and exercising In addition to treating the individual components of metabolic syndrome with medications, you may be able to further lower your risk of cardiovascular complications by reversing or correcting the syndrome with lifestyle changes including weight loss, exercise, and dietary changes. Weight loss -- Management of metabolic syndrome usually includes losing weight and becoming more active. Your diet should be low in fat and cholesterol. -The Mediterranean diet is high in fruits, vegetables, nuts, whole grains, and olive oil. This diet can help to lower weight, blood pressure, lipids, and improve insulin resistance. -The DASH (Dietary Approaches to Stop Hypertension) diet can reduce blood pressure, weight, lipids, and fasting blood glucose levels. The DASH diet requires you to eat no more than 2400 mg of sodium per day, four to five servings of fruit, four to five servings of vegetables, and two to three servings of low-fat dairy products; all foods must contain less than 25 percent total fat per serving. (See Patient education: Low-sodium diet (Beyond the Basics) .) Exercise -- Exercise can help with weight loss and can also help to reduce the size of the abdomen, especially in women. Experts recommend at least 30 minutes of moderate physical activity, such as brisk walking, most days of the week. (See Patient education: Exercise (Beyond the Basics) .) Reduce the risk of type 2 diabetes -- Losing weight (if you are overweight or obese) and staying active can reduce the risk of developing type 2 diabetes. Reduce cholesterol -- High levels of low-density lipoprotein (LDL) (bad) cholesterol increase the risk of coronary artery disease. In people with metabolic syndrome, an LDL level of less than 80 to 100 mg/dL is recommended. If diet and weight loss do not adequately reduce your LDL levels, a medicine may be recommended. Treatment of high LDL levels is discussed separately. (See Patient education: High cholesterol and lipids (Beyond the Basics) .) More helpful links: How to Lower Insulin Levels How to Lower Your Insulin Levels ([place]) What to Do For Metabolic Syndrome - [facility] documented in this encounter [facility] 07-30-2022 History of Present illness Narrative Images from the original note were not included. Patient Summary: is 62 year old female who presents for follow-up evaluation of her obesity/weight management. In our previous visits we have discussed lifestyle intervention including a nutrition recommendations and physical activity optimization. Leonel Rutledge is here today for follow up evaluation for phentermine and metformin. Her last office visit was 2 weeks ago. Assessement/plan from last visit: Sleep study, Started Phentermine and Metformin Interval History Pt reports having some episodes of feeling dizzy. Is seeing cardiology- will be doing stress test. Otherwise feels fine and is happy with weight loss. She feels the medication is helping to give her a boost. She reports that the medication is helping to curb some of her cravings. She is eating healthier. She is concentrating on getting more protein. She is trying to move more but because of lower back pain and knee pain that is difficult. She is taking the metformin without any concerns. The phentermine she is wondering if is making her dizzy. She recently saw cardiology and apparently had an abnormal EKG and will now be having a stress test. Exercise: none Stress: stable Sleep: stable Weight loss since last vist: Weight and Change in Weight Flowsheet Row Most Recent Value Weight 277 lb (125.6 kg) Change in Weight -5.806 kg PAST MEDICAL HISTORY Diagnosis Date Calculus of gallbladder with other cholecystitis, without mention of obstruction 07/13/2007 Fatty liver 06/27/2013 OVERWEIGHT 01/05/2008 Primary osteoarthritis of both knees 07/28/2016 Varicose veins of lower extremities with other complications 07/13/2007 Current Outpatient Medications Medication Sig Dispense Refill topiramate (TOPAMAX) 50 mg tablet Take 1 tablet by mouth daily at bedtime. 1/2 tab daily for 2 weeks then 1 tablet daily. 30 tablet 0 metFORMIN ER (GLUCOPHAGE XR) 750 mg 24 hr tablet Take 1 tablet by mouth daily with dinner. 60 tablet 5 Phentermine HCl 15 mg capsule Take 1 capsule by mouth daily before breakfast for 30 days. 30 capsule 0 semaglutide (OZEMPIC) 0.25 mg or 0.5 mg (2 mg/3 mL) pen Inject 0.25 mg subcutaneously one time a week. (Patient not taking: Reported on 07/30/2022) 2 mL 0 levothyroxine (SYNTHROID) 25 mcg tablet Take 1 tablet by mouth once daily. Take on empty stomach. For thyroid. 30 tablet 2 naproxen sodium (ALEVE ORAL) Take by mouth. om 3/E/linol/ala/oleic/gla/lip (OMEGA 3-6-9 ORAL) Take 2 tablets by mouth once daily. No current facility-administered medications for this visit. ROS Currently denies any chest pain or shortness of breath. BP 142/88 Pulse 96 Wt 277 lb (125.6 kg) SpO2 96% BMI 50.66 kg/m Physical Exam Gen: female in NAD Assessment/Plan: Leonel Rutledge is a 62 year old yo Female with class 3 obesity who presented today for follow up for supervised weight loss. Discussed with the patient that she needs to discontinue the phentermine at this time. This is contraindicated if she is having any type of cardiac symptoms and currently she is being worked up by cardiology. If she is cleared this may be considered in the future. At this time we will continue the metformin and start her on topiramate. The rationale for topiramate was reviewed with the patient. She has no contraindication to start this. I discussed the common side effects of topiramate including fogginess, depression, paresthesias, nephrolithiasis. Discussed increasing her water intake with limited. We discussed true lemon or sugar-free lemonade. Discussed when to stop this medication. Discussed how to titrate this medication up appropriately. All questions were answered. Discussed that she is limited for her physical activity at this time due to pain but I want her to continue to move is much as possible. I want her to continue to concentrate on her protein intake and decreasing her carbohydrates. I would like her to decrease her carbohydrates to less than 100 g/day. Her sleep study is scheduled for August 07. (E88.81) Metabolic syndrome (primary encounter diagnosis) Comment: Plan: (R73.09) Elevated glucose tolerance test Comment: metformin will increase dose Plan: (E66.01, Z68.43) Class 3 severe obesity with body mass index (BMI) of 50.0 to 59.9 in adult, unspecified obesity type, unspecified whether serious comorbidity present (HCC) Comment: Plan: (E03.9) Hypothyroidism, unspecified type Comment: Plan: on synthroid 25mcg now (E78.5) Dyslipidemia Recheck labs later date Follow up in 4 weeks Medical Decision Making: Problems: Moderate: 2+ stable chronic illnesses Risk: Moderate: Drug management Medical Decision Making Level: 4 - Moderate Finesse Gramajo MD documented in this encounter [facility] 07-21-2022 Miscellaneous Notes Noted. Yu Husrt LPN Noted. She is on oral metformin. Thank you for submitting. Received denial for Ozempic for the following reason, Your request was denied because we did not see what we need to approve the drug you asked for, Ozempic. We may be able to approve this drug in certain situations, if you have a history of ASCVD including one or more of the following: CAD, CO, Stable or unstable angina, Coronary or other arterial revascularization, stroke, TIA , or PAD; if you have had a trial and inadequate response or intolerance to Metformin, or if you have a contraindication to Metformin. We do not see that this applies to you. Please further advise. Yu Hurst LPN Contacted [facility] to have a reconsideration of Denial for Ozempic. Submitted to [phone]. Will await further information from pt's insurance. Yu Hurst LPN Did we submit with her PA for Ozempic the 2hr GTT test done at [facility] that gives her the Dx of type 2 DM? I just got a letter that states Ozempic may be covered with this diagnosis. Could we please send an appeal to her insurance with medical necessity- type 2 DM for Ozemipic with lab result for 2hr GTT from [facility]. documented in this encounter [facility] 07-17-2022 Miscellaneous Notes Pt's insurance called and stated that the pt is approved for her home sleep study from 07/16/22 - 09/13/22. Approval number [id number]. Pt notified via [employer]. Yu Hurst LPN documented in this encounter [facility] 07-11-2022 Miscellaneous Notes See phone encounter dated 07/11/2022. Patient has decided to hold off on the sleep study for now. Karolina Byers RN Spoke with pt and she was agreeable with contacting her insurance to see what facility is covered for her sleep study. Pt currently on vacation and will call upon her return and will then notify our office. Yu Hurst LPN Left message to call office. Patient will need to contact [employer] or go to [employer] to check for in-network providers. Can this be done at [facility]? Is there a provider that is in network that provides this service? Received call from patients insurance. The home sleep study that you ordered has been denied by her insurance d/t service provider being [facility]. If you wish to do a peer to peer the number is . Karolina Byers RN documented in this encounter [facility] 07-09-2022 Miscellaneous Notes Called and notified patient. She is currently out of town until Thursday next week. Will start taking on 07/16. Rescheduled her 2 week follow up to July 30 Magui Hamm RN Please notify patient that this is used for diabetes and also has SE of weight loss. I will send her instructions to my chart. This is still weekly injectable medication that we titrate up monthly. Needs to stay hydrated. Will change to ozempic- as it appears to be covered under her insurance for type 2 DM. Received denial for [facility]. Pt must have a trial and failure on Metformin. Please further advise. Yu Hurst LPN Electronic PA submitted for [facility]. Will await further response from pt's insurance. Yu Hurst LPN documented in this encounter [facility] 07-08-2022 Miscellaneous Notes PATIENT NOTIFIED OF SAME. Based on her TSH result it does show she has hypothyroidism and could likely benefit from treatment with synthroid. Will start synthroid 25 mcg daily, she should take it on an empty stomach either first thing in the am and then wait 30 minutes before having anything else to eat or drink OR can take it at bedtime. She should have repeat labs in about 6 weeks. Pt. had labs drawn last week at [facility]. These were ordered by Dr. Benjamin.She was told to call here PCP because her Thyroid was abnormal at 6.10 Please advise. documented in this encounter [facility] 07-07-2022 Miscellaneous Notes ordered Patient notified and voiced understanding of below information and instructions. Patient states medication was sent to incorrect pharmacy. New pharmacy updated and previous one deleted from patient preference. Please resend. Karolina Byers RN Lab reviewed- failed each component of the 2hr GTT, which is c/w Type 2 DM. With this diagnosis my suggestion would be starting Mounjaro. I will place order and instructions in her Mychart. Call if problems, questions or concerns. Each month we will titrate dose up so long as she is tolerating it. Make sure to drink a lot of water. Patient called for results. Leaving out of town tomorrow Outside lab results received from [facility]. Patient last seen in office on 07/01/22. Scan on 07/07/2022 10:13 AM by External Provider: Miscellaneous Lab Karolina Byers RN documented in this encounter [facility] 07-03-2022 Miscellaneous Notes Noted. Thank you. Once I get all labs back I will reach out to Dr. Jean Baptiste. Notified patient and patient's daughter the below information. Patient will go to [facility] lab tomorrow. Aware the 2 HR GTT is a fasting test. They did check on the cost of one of the GLP-1 medications. Daughter stated it started with a J . Was it Mounjaro? The cost would be $500 unless she has the diagnosis of diabetes. Are you contacting Dr. Jean Baptiste regarding TSH and need for treatment or are you managing? Magui Hamm RN Sleep study order faxed to [facility] sleep disorders center. They will contact patient to schedule. Lab order form also faxed to [facility] lab. Left message for patient to call office - see provider's note below. Rema Eli RN Ordered. Also, please tell patient that I reviewed her labs. She is prediabetic based on numbers. Elevated lipid panel. Also her TSH is elevated and will need treated. I am going to order more labs at [facility] for her to get drawn. Did she find out how much out of pocket any of the GLP-1 (injectable) medications would cost? I am going to have her do a 2hr Fasting GTT, if it is abnormal diagnosis of Diabetes would be established and that would change what medication she qualifies for as well. Also, her VIT D level is low- start supplementing daily with 2000 international unit(s)/day VIT D3. Once I have the next set of labs back we will decide on medication. See below. Patient's insurance prefers home sleep study. Order to DM to complete and sign. Will fax back to [facility] sleep disorders center then. Rema Eli RN John from [facility] Sleep lab called and stated patient does qualify for home sleep study. She is faxing the order that needs completed and signed by DM to fax back. Referral placed already for this in Epic. Rema Eli RN [facility] Sleep Center called regarding sleep study order. States we will need to place new order. She requested office records first to review and will call back with what specific order they need. Patient may qualify for home sleep study. Will need to fax new order to [phone]. Rema Eli RN documented in this encounter [facility] 07-01-2022 Miscellaneous Notes Addended by: FINESSE BENJAMIN on: 07/01/2022 01:01 PM Modules accepted: Orders documented in this encounter [facility] 07-01-2022 Instructions Finesse Benjamin MD - 07/01/2022 12:34 PM EDT Eat primarily whole foods. Limit carbs, especially processed carbs. Do not drink your calories 30 grams of protein for breakfast decreases your hunger during the day by up to 40 % Premier Protein or generic 30 gm protein 1 gm sugar Walk for 15 minutes immediately a meal. 30 High Protein Snacks 1. Jerky 2. [place] mix without or minimal dried fruit 3. [place] roll-ups 4. [place] yogurt 5. Veggies and yogurt dip 6. Tuna 7. Hard-boiled eggs 8. Peanut butter celery sticks 9. No-bake energy bites 10. Cheese slices/ Cheese Stick 11. Handful of almonds 12. Roasted chickpeas 13. Hummus and veggies 14. Cottage Cheese 15. Celery/fruit with peanut butter 16. Beef sticks (Grass-fed, natural ingredients) 17. Protein bars 18. Canned [place] 19. [place] pudding 20. Homemade granola - rolled oats, nuts, and a little sweetener like honey- 1/4 cup serving 21. Pumpkin seeds 22. Nut butter 23. Protein shakes 24. Edamame 25. Avocado and chicken salad 26. Fruit and nut bars - natural ingredients without added sugar. 27. Lentil salad 28. Overnight oatmeal 29. Egg muffins 30. Leftover protein or lunch meat Disrupted Sleep Linked to Weight Gain - YouTube How To Improve Your Sleep To Impact Your Weight Loss: [email or web address] Weight Loss and Sleep Updated January 06, 2020 Written by Ted Alston Medically Reviewed by Yu Mccarthy In This Article The Connection Between Sleep and Weight Sleep and Obesity Sleep During Weight Loss Maintaining a Healthy Relationship With Your Body Losing weight is challenging, and keeping weight off can be just as difficult. Although the medical community is still untangling the complicated relationship between sleep and body weight, several potential links have emerged that highlight the potential weight loss benefits of getting a good night s rest and the negative health impacts of sleep deprivation. The Connection Between Sleep and Weight Over the past several decades, the amount of time that Americans spend sleeping has steadily decreased1, as has the self-reported quality of that sleep. For much of the same time period, the average body mass index (BMI) of Americans increased2, reflecting a trend toward higher body weights and elevated rates of obesity. In response to these trends, many researchers began to hypothesize about potential connections between weight and sleep. Numerous studies have suggested that restricted sleep and poor sleep quality may lead to metabolic disorders, weight gain, and an increased risk of obesity and other chronic health conditions. While there is continuing debate within the medical community about the exact nature of this relationship, the existing research points to a positive correlation between good sleep and healthy body weight. There remains much to be discovered about the intricate details of how sleep and weight are connected. Several hypotheses offer paths for additional research with the hope that increasing our understanding of the relationship between weight and sleep will lead to reduced obesity and better weight-loss methods. Can Lack of Sleep Increase Appetite? One common hypothesis about the connection between weight and sleep involves how sleep affects appetite. While we often think of appetite as simply a matter of stomach grumbling, it s actually controlled by neurotransmitters, which are chemical messengers that allow neurons (nerve cells) to communicate with one another. The neurotransmitters ghrelin and leptin are thought to be central to appetite. Ghrelin promotes hunger, and leptin contributes to feeling full. The body naturally increases and decreases the levels of these neurotransmitters throughout the day, signaling the need to consume calories3. A lack of sleep may affect the body s regulation of these neurotransmitters. In one study, men who got 4 hours of sleep had increased ghrelin and decreased leptin compared to those who got 10 hours of sleep. This dysregulation of ghrelin and leptin may lead to increased appetite and diminished feelings of fullness in people who are sleep deprived. In addition, several studies have also indicated that sleep deprivation affects food preferences. Sleep-deprived individuals tend to choose foods that are high in calories and carbohydrates4. Other hypotheses regarding the connection between sleep and increased appetite involve the body s endocannabinoid system5 and orexin6, a neurotransmitter targeted by some sleep aids. Many researchers believe that the connection between sleep and dysregulation of neurotransmitters is complicated and additional studies are needed to further understand the neurobiological relationship. Does Sleep Increase Metabolism? Metabolism7 is a chemical process in which the body converts what we eat and drink into energy needed to survive. All of our collective activities, from breathing to exercising and everything in between, is part of metabolism. While activities like exercise can temporarily increase metabolism, sleep cannot8. Metabolism actually slows about 15% during sleep, reaching its lowest level in the morning 9. In fact, many studies have shown that sleep deprivation (whether due to self-induction, insomnia, untreated sleep apnea, or other sleep disorders) commonly leads to metabolic [id number]. Poor sleep is associated with increased oxidative stress, glucose (blood sugar) intolerance (a precursor to diabetes), and insulin resistance. Extra time spent awake may increase the opportunities to eat11, and sleeping less may disrupt circadian rhythms, leading to weight gain12. How is Sleep Related to Physical Activity? Losing sleep can result in having less energy for exercise and physical activity. Feeling tired can also make sports and exercising less safe, especially activities like weightlifting and or those requiring balance. While researchers are still working to understand this [id number], it s well known that exercise is essential to maintaining weight loss and overall health. Getting regular exercise can improve sleep quality, especially if that exercise involves natural light. While even taking a short walk during the day may help improve sleep, more activity can have a more dramatic impact. Engaging in at least 150 minutes of moderate-intensity or 75 minutes of high-intensity exercise per week can improve daytime concentration and decrease daytime [id number]. Sleep and Obesity In children and adolescents, the link between not getting enough sleep and an increased risk of obesity is well-established, although the reason for this link is still being debated. Insufficient sleep in children can lead to metabolic irregularities as discussed earlier, skipping breakfast in the mornings, and increased intake of sweet, salty, fatty, and starchy foods15. In adults, the research is less clear. While a large analysis of past studies suggests that people getting less than 6 hours of sleep at night are more likely to be diagnosed as obese16, it s challenging for these studies to determine cause and effect. Obesity itself can increase the risk of developing conditions that interfere with sleep, like sleep apnea and depression. It s not clear if getting less sleep is the cause of obesity in these studies, if obesity is causing the participants to get less sleep, or perhaps a mix of both. Even though more studies are needed to understand this connection, experts encourage improving sleep quality when treating obesity in adults. Sleep During Weight Loss Getting adequate, quality sleep is an important part of a healthy weight loss plan. Most importantly, research has shown that losing sleep while dieting can reduce the amount of weight lost17 and encourage . Tips for Quality Sleep During Weight Loss There are many ways to improve sleep. Here are a few research-based tips for sleeping better when you re trying to lose weight: Keep a regular sleep schedule: Big swings in your sleep schedule or trying to catch up on sleep after a week of late nights can cause changes in metabolism and reduce insulin [id number], making it easier for blood sugar to be elevated. Sleep in a dark room: Exposure to artificial light while sleeping, such as a TV or bedside lamp, is associated with an increased risk of weight gain and iqeanpt26. Don t eat right before bed: Eating late may reduce the success of weight loss [id number] Reduce Stress: Chronic stress may lead to poor sleep and weight gain in several ways, including eating to cope with negative [id number] Be an Early Bird: People with late bedtimes may consume more calories and be at a higher risk for weight gain23. Early birds may be more likely to maintain weight loss when compared to night owls24. Maintaining a Healthy Relationship With Your Body Deciding if you should attempt to change your body weight is a personal decision best made with the guidance of your doctor. Don t take all the health and weight loss information you read [id number] at face value. Weight loss isn t appropriate for everyone and doesn t always mean better health. Remember that health is a lifelong journey that includes not only healthy habits but also having a healthy relationship with your body. If you re considering weight loss, the National Institutes of Health offers a helpful resource for choosing a safe weight loss [id number] Source National [place] of Diabetes and Digestive and Kidney DiseasesNIDDK research creates knowledge about and treatments for diseases that are among the most chronic, costly, and consequential for patients, their families, and the Nation. niddk.nih.gov . https://www.sleepfoundation.org/p hysical-health/qppjjg-mhhn-egm-sl eep ONLINE TOOLS: Online tracking of nutrition and weight (smart phone apps): My fitness pal Lose It Macros first Online calculators: https://www.[employer].Simbiosis https://calculators.org/health These websites contains multiple beneficial calculators as well as general nutritional information Basal metabolic rate (BMR): Is the amount of calories your body expends to perform standard bodily functions when completely at rest. This is responsible for approximately 60-70% of your total daily expenditure. Calorie Counter: Can assist you in estimating how many calories you burn in a day when taking into consideration your activity level and your resting energy expenditure (REE). Once this is calculated you can subtract 250-500 calories to find your calorie deficient in order to achieve weight loss. Doing too low of calorie deficits for prolonged periods may not be sustainable and may cause adverse outcomes. Pedometer/activity tracker: [employer] There are many other tracking devices that can keep track of your steps/activities- check out www.Tapit for more options. Remember this is a good way to keep yourself accountable for movement during the day but do not use this as a reward for hitting your exercise goals. METABOLIC SYNDROME OVERVIEW Metabolic syndrome, also called insulin resistance syndrome or syndrome X, is not a disease but a group of characteristics. These characteristics include obesity, high blood pressure, elevated blood sugar levels, and high triglycerides (fat-like substances in the blood). Having a combination of these characteristics increases your risk of developing type 2 diabetes and heart disease. Keeping your weight, blood sugar, and cholesterol and triglyceride levels under control can help you to live longer and decrease your risk of heart attack and stroke. There is controversy as to whether metabolic syndrome is really a syndrome. More detailed information about metabolic syndrome is available by subscription. (See Metabolic syndrome (insulin resistance syndrome or syndrome X) .) WHAT IS METABOLIC SYNDROME?Metabolic syndrome is a group of characteristics. You do not need to have all of the characteristics to have it. However, a person with one characteristic is more likely to have others. Most expert groups define metabolic syndrome as the presence of three or more of the following characteristics in a person: -Obesity, especially in the abdominal area (defined by some groups as a waist size greater than 94 to 102 cm [38 to 41 in] in men or greater than 80 cm [32 in] in women) -impaired glycemia (fasting blood sugar of 100 to 125 mg/dL [5.6 to 7 mmol/L] or glycated hemoglobin [A1C] 5.7 to 6.4 percent) -increased blood pressure (130/85 mmHg or higher) or if you take medicine for high blood pressure -Increased fasting levels of triglycerides (greater than 150 to 180 mg/dL or 1.7 mmol/L) or decreased fasting high-density lipoprotein (HDL) cholesterol (less than 40 mg/dL or 1 mmol/L for men or 50 mg/dL or 1.3 mmol/L for women) or if you take medicine for high triglycerides or low HDL cholesterol HOW COMMON IS METABOLIC SYNDROME? Metabolic syndrome is becoming increasingly common. In one study performed between 1998 and 2001, more than 34 percent of participants were classified as having metabolic syndrome [1]. This number is significantly increased from a similar study performed between 1987 and 1993, when 22 percent of people had metabolic syndrome. The following factors are thought to increase the risk of developing metabolic syndrome: -Being overweight (body mass index of 25 kg/m2 or more) (calculator 1 and calculator 2) -Menopause (in women) -Increasing age -Smoking -Eating a high-carbohydrate diet -Lack of physical activity -Family history of diabetes or metabolic syndrome Health risks associated with metabolic syndrome Diabetes -- Type 2 diabetes is much more likely to develop among people with metabolic syndrome [2]. Healthy lifestyle changes, such as weight loss and exercise, can help to reduce the risk of developing type 2 diabetes. (See Patient education: Type 2 diabetes: Overview (Beyond the Basics) .) Cardiovascular disease -- People with metabolic syndrome are at increased risk for developing cardiovascular disease. Cardiovascular disease includes coronary artery disease (collections of fatty plaques inside the heart's blood vessels), cerebrovascular disease (collections of fatty plaques inside the blood vessels leading to the brain), and high blood pressure. Cardiovascular disease can lead to heart attack, stroke, or angina (chest pain). METABOLIC SYNDROME DIAGNOSISMetabolic syndrome is diagnosed based upon a physical exam and a blood test of your blood sugar (either fasting [before breakfast] blood sugar or a test any time of A1C), cholesterol, and triglyceride levels. A description of how blood glucose and cholesterol levels are measured is available separately. (See Patient education: Type 2 diabetes: Overview (Beyond the Basics) and Patient education: High cholesterol and lipids (Beyond the Basics) .) METABOLIC SYNDROME TREATMENT The goals of treatment for metabolic syndrome are to: -Reduce or eliminate underlying problems (eg, obesity, lack of activity) by losing weight and becoming more active -Treat cardiovascular risk factors, such as high blood pressure and cholesterol, if these problems persist despite losing weight and exercising In addition to treating the individual components of metabolic syndrome with medications, you may be able to further lower your risk of cardiovascular complications by reversing or correcting the syndrome with lifestyle changes including weight loss, exercise, and dietary changes. Weight loss -- Management of metabolic syndrome usually includes losing weight and becoming more active. Your diet should be low in fat and cholesterol. -The Mediterranean diet is high in fruits, vegetables, nuts, whole grains, and olive oil. This diet can help to lower weight, blood pressure, lipids, and improve insulin resistance. -The DASH (Dietary Approaches to Stop Hypertension) diet can reduce blood pressure, weight, lipids, and fasting blood glucose levels. The DASH diet requires you to eat no more than 2400 mg of sodium per day, four to five servings of fruit, four to five servings of vegetables, and two to three servings of low-fat dairy products; all foods must contain less than 25 percent total fat per serving. (See Patient education: Low-sodium diet (Beyond the Basics) .) Exercise -- Exercise can help with weight loss and can also help to reduce the size of the abdomen, especially in women. Experts recommend at least 30 minutes of moderate physical activity, such as brisk walking, most days of the week. (See Patient education: Exercise (Beyond the Basics) .) Reduce the risk of type 2 diabetes -- Losing weight (if you are overweight or obese) and staying active can reduce the risk of developing type 2 diabetes. Reduce cholesterol -- High levels of low-density lipoprotein (LDL) (bad) cholesterol increase the risk of coronary artery disease. In people with metabolic syndrome, an LDL level of less than 80 to 100 mg/dL is recommended. If diet and weight loss do not adequately reduce your LDL levels, a medicine may be recommended. Treatment of high LDL levels is discussed separately. (See Patient education: High cholesterol and lipids (Beyond the Basics) .) More helpful links: How to Lower Insulin Levels How to Lower Your Insulin Levels ([place]) What to Do For Metabolic Syndrome - [facility] documented in this encounter [facility] 07-01-2022 Note HNO ID: [id number] Author: Finesse Benjamin MD Service: ? Author Type: Physician Type: Progress Notes Filed: 07/01/2022 12:37 PM Note Text: INITIAL WEIGHT MANAGEMENT CONSULT: Patient Summary: Leonel Rutledge is a 62 year old female with obesity who presents for an initial evaluation of overweight/obesity and is interested in combination of behavioral and pharmacological Motivation for seeking treatment for the disease of overweight/obesity : feel better Goal weight: 150 Lowest recall weight: 126 (before kids) Highest recall weight: 289 Patient identified barriers to weight loss: none Current Contraception: none Last Wt 07/01/22 : 289 lb 12.8 oz (131.5 kg) 5% weight loss = 275 lbs, 10% weight loss = 261 lbs Weight History: She reports a strong family history of obesity and childhood onset weight gain (change to childhood, adolescence, early adulthood, late adulthood). She states her weight gain is related to the following factors, including weight retention . WEIGHT GRAPH: Medications: none Weight Promoting Medications: none Diet: Fluids: mostly water or sugar free tea Quality of diet: 24hr recall suggests unhealthy diet. Characterization of diet:Unstructured, unhealthy snacking, excessive cravings, and evening snacking. 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 Diet History: Past weight loss attempts? Saw chiropractor did low CHO and lost 100+ lbs in 2016. Exercise: Regular exercise: no Strength/resistance exercise:no Barriers to regular exercise? no Work-related activity:None . Gym Membership: no Activity Tracker: no ?Sleep: Duration: 4 hours. ERASMO Possible ; CPAP NO STOP BANG Questionnaire 1. Snoring Do you snore loudly (louder than talking or loud enough to be heard through closed doors)? YES 2. Tired Do you often feel tired, fatigued, or sleepy during daytime? YES 3. Observed Has anyone observed you stop breathing during your sleep? YES 4. Blood Pressure Do you have or are you being treated for high blood pressure? NO 5. BMI BMI more than 35 kg/m2? YES 6. Age Age over 50 yr old? YES 7. Neck circumference Neck circumference greater than 40 cm? 8. Gender Gender male? NO * Neck circumference is measured by staff High risk of ERASMO: answering yes to three or more items Low risk of ERASMO: answering yes to less than three items ??Stress: BMI Stressyes :, Cause:Personal - depression- doing well now does not want medication. Lost her about 5 yrs. ago Obesity Related Comorbidities: Prior Weight Loss Surgery:No PAST MEDICAL HISTORY Diagnosis Date Calculus of gallbladder with other cholecystitis, without mention of obstruction 07/13/2007 Fatty liver 06/27/2013 OVERWEIGHT 01/05/2008 Primary osteoarthritis of both knees 07/28/2016 Varicose veins of lower extremities with other complications 07/13/2007 PAST SURGICAL HISTORY Procedure Laterality Date ADENOIDECTOMY PRIMARY Adenoidectomy BIOPSY LIVER NEEDLE PERCUTANEOUS 07/21/07 DELIVERY ONLY age 29 , low cervical COLONOSCOPY FLX DX W/COLLJ SPEC WHEN PFRMD 30-14 LAPS SURG CHOLECYSTECTOMY W/CHOLANGIOGRAPHY 07/21/07 S TUBAL LIGATION with c-scetion TONSILLECTOMY PRIMARY/SECONDARY Tonsillectomy VAGINAL HYSTERECTOMY UTERUS 250 GM/< 2009 Hysterectomy, vaginal, [facility] (ALEXI BSO) FAMILY HISTORY Problem Relation Age of Onset Colon Cancer Brother at age 60 Coronary Artery Disease Mother Ischemic Heart Disease Mother Heart Failure Maternal Grandfather other (Precancerous colon polyps) Father Social History Tobacco Use Smoking status: Never Smokeless tobacco: Never Substance Use Topics Alcohol use: No Drug use: No 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 Pancreatitis: NO MSK: Joint Pain:yes : Nephrolithiasis: no Symptoms of PCOS: no NEURO: Migraines/STYLES: no; H/o seizures: no Glaucoma:no; Cataracts: Eye Doct- watching. Symptoms of or History of pseudotumor cerebri:no Family or personal History of MEN2 or Medullary thyroid cancer: no PE BP 130/84 Pulse 73 Ht 5' 2 (1.575 m) Wt 289 lb 12.8 oz (131.5 kg) SpO2 97% BMI 53.01 kg/m? Weight Circumference: >40 GENERAL: Female in NAD. Mixed central and gluteofemoral adiposity. SKIN: acanthosis nigricans no, Skin tags: Hirsutism: no HEENT: PERRL, No supraclavicular adiposity. No dorsal adiposity. ABDOMEN: Large pannus; EXTREMITIES: peripheral edema: no Results: reviewed with the patient No visits with results within 3 Month(s) from this visit. Latest known visit with results is: Appointment on 04/30/2020 Component (more content not included)... [facility] 07-01-2022 History of Present illness Narrative Images from the original note were not included. INITIAL WEIGHT MANAGEMENT CONSULT: Patient Summary: Leonel Rutledge is a 62 year old female with obesity who presents for an initial evaluation of overweight/obesity and is interested in combination of behavioral and pharmacological Motivation for seeking treatment for the disease of overweight/obesity : feel better Goal weight: 150 Lowest recall weight: 126 (before kids) Highest recall weight: 289 Patient identified barriers to weight loss: none Current Contraception: none Last Wt 07/01/22 : 289 lb 12.8 oz (131.5 kg) 5% weight loss = 275 lbs, 10% weight loss = 261 lbs Weight History: She reports a strong family history of obesity and childhood onset weight gain (change to childhood, adolescence, early adulthood, late adulthood). She states her weight gain is related to the following factors, including weight retention . WEIGHT GRAPH: Medications: none Weight Promoting Medications: none Diet: Fluids: mostly water or sugar free tea Quality of diet: 24hr recall suggests unhealthy diet. Characterization of diet:Unstructured, unhealthy snacking, excessive cravings, and evening snacking. 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 Diet History: Past weight loss attempts? Saw chiropractor did low CHO and lost 100+ lbs in 2016. Exercise: Regular exercise: no Strength/resistance exercise:no Barriers to regular exercise? no Work-related activity:None . Gym Membership: no Activity Tracker: no ?Sleep: Duration: 4 hours. ERASMO Possible ; CPAP NO STOP BANG Questionnaire 1. Snoring Do you snore loudly (louder than talking or loud enough to be heard through closed doors)? YES 2. Tired Do you often feel tired, fatigued, or sleepy during daytime? YES 3. Observed Has anyone observed you stop breathing during your sleep? YES 4. Blood Pressure Do you have or are you being treated for high blood pressure? NO 5. BMI BMI more than 35 kg/m2? YES 6. Age Age over 50 yr old? YES 7. Neck circumference Neck circumference greater than 40 cm? 8. Gender Gender male? NO * Neck circumference is measured by staff High risk of ERASMO: answering yes to three or more items Low risk of ERASMO: answering yes to less than three items ??Stress: BMI Stressyes :, Cause:Personal - depression- doing well now does not want medication. Lost her about 5 yrs. ago Obesity Related Comorbidities: Prior Weight Loss Surgery:No PAST MEDICAL HISTORY Diagnosis Date Calculus of gallbladder with other cholecystitis, without mention of obstruction 07/13/2007 Fatty liver 06/27/2013 OVERWEIGHT 01/05/2008 Primary osteoarthritis of both knees 07/28/2016 Varicose veins of lower extremities with other complications 07/13/2007 PAST SURGICAL HISTORY Procedure Laterality Date ADENOIDECTOMY PRIMARY <AGE 10 age 29 Adenoidectomy BIOPSY LIVER NEEDLE PERCUTANEOUS 07/21/07 DELIVERY ONLY age 29 , low cervical COLONOSCOPY FLX DX W/COLLJ SPEC WHEN PFRMD 08-26-13 LAPS SURG CHOLECYSTECTOMY W/CHOLANGIOGRAPHY 07/21/07 S TUBAL LIGATION with c-scetion TONSILLECTOMY PRIMARY/SECONDARY <AGE 10 age 29 Tonsillectomy VAGINAL HYSTERECTOMY UTERUS 250 GM/< 2009 Hysterectomy, vaginal, [facility] (ALEXI BSO) FAMILY HISTORY Problem Relation Age of Onset Colon Cancer Brother at age 60 Coronary Artery Disease Mother Ischemic Heart Disease Mother Heart Failure Maternal Grandfather other (Precancerous colon polyps) Father Social History Tobacco Use Smoking status: Never Smokeless tobacco: Never Substance Use Topics Alcohol use: No Drug use: No 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 Pancreatitis: NO MSK: Joint Pain:yes : Nephrolithiasis: no Symptoms of PCOS: no NEURO: Migraines/STYLES: no; H/o seizures: no Glaucoma:no; Cataracts: Eye Doct- watching. Symptoms of or History of pseudotumor cerebri:no Family or personal History of MEN2 or Medullary thyroid cancer: no PE BP 130/84 Pulse 73 Ht 5' 2 (1.575 m) Wt 289 lb 12.8 oz (131.5 kg) SpO2 97% BMI 53.01 kg/m Weight Circumference: >40 GENERAL: Female in NAD. Mixed central and gluteofemoral adiposity. SKIN: acanthosis nigricans no, Skin tags: Hirsutism: no HEENT: PERRL, No supraclavicular adiposity. No dorsal adiposity. ABDOMEN: Large pannus; EXTREMITIES: peripheral edema: no Results: reviewed with the patient No visits with results within 3 Month(s) from this visit. Latest known visit with results is: Appointment on 04/30/2020 Component Date Value Ref Range Status Protein, Total 04/30/2020 6.9 6.3 - 8.0 g/dL Final Albumin 04/30/2020 4.2 3.9 - 4.9 g/dL Final Calcium 04/30/2020 9.8 8.5 - 10.2 mg/dL Final Bilirubin, Total 04/30/2020 0.2 0.2 - 1.3 mg/dL Final Alkaline Phosphatase 04/30/2020 118 34 - 123 U/L Final AST 04/30/2020 26 13 - 35 U/L Final Glucose 04/30/2020 93 74 - 99 mg/dL Final BUN 04/30/2020 21 7 - 21 mg/dL Final Creatinine 04/30/2020 0.92 0.58 - 0.96 mg/dL Final Sodium 04/30/2020 138 136 - 144 mmol/L Final Potassium 04/30/2020 4.3 3.7 - 5.1 mmol/L Final Chloride 04/30/2020 101 97 - 105 mmol/L Final CO2 04/30/2020 26 22 - 30 mmol/L Final Anion Gap 04/30/2020 11 9 - 18 mmol/L Final ALT 04/30/2020 33 7 - 38 U/L Final eGFR- 04/30/2020 >60 Final eGFR-All Other Races 04/30/2020 >60 . Final WBC 04/30/2020 7.73 3.70 - 11.00 k/uL Final RBC 04/30/2020 4.58 3.90 - 5.20 m/uL Final Hemoglobin 04/30/2020 13.8 11.5 - 15.5 g/dL Final Hematocrit 04/30/2020 42.2 36.0 - 46.0 % Final MCV 04/30/2020 92.1 80.0 - 100.0 fL Final MCH 04/30/2020 30.1 26.0 - 34.0 pG Final MCHC 04/30/2020 32.7 30.5 - 36.0 g/dL Final RDW-CV 04/30/2020 12.0 11.5 - 15.0 % Final Platelet Count 04/30/2020 254 150 - 400 k/uL Final MPV 04/30/2020 9.6 9.0 - 12.7 fL Final Absolute nRBC 04/30/2020 <0.01 <0.01 k/uL Final Total Cholesterol, Nonfasting 04/30/2020 218 (A) <200 mg/dL Final Triglycerides, Nonfasting 04/30/2020 252 (A) <150 mg/dL Final HDL Cholesterol, Nonfasting 04/30/2020 45 >39 mg/dL Final LDL Cholesterol, Nonfasting 04/30/2020 123 (A) <100 mg/dL Final Non HDL Cholesterol, Nonfasting 04/30/2020 173 (A) <130 mg/dL Final VLDL Cholesterol, Nonfasting 04/30/2020 50 (A) <30 mg/dL Final Total Chol/HDL Ratio, Nonfasting 04/30/2020 4.84 <5.10 mg/dL Final LDL/HDL Ratio, Nonfasting 04/30/2020 2.73 (A) <2.54 mg/dL Final Color 04/30/2020 Straw (A) Yellow Final Clarity 04/30/2020 Clear Clear Final Glucose, Urine 04/30/2020 Negative Negative mg/dL Final Bilirubin, Urine 04/30/2020 Negative Negative Final Ketones, Urine 04/30/2020 Negative Negative Final Specific [place], Ur 04/30/2020 1.011 1.005 - 1.030 Final Hemoglobin/Blood,Ur 04/30/2020 Negative Negative Final pH, Urine 04/30/2020 7.0 5.0 - 8.0 Final Protein, Urine 04/30/2020 Negative Negative Final Urobilinogen 04/30/2020 Negative Negative E.U./dL Final Nitrites 04/30/2020 Negative Negative Final Leukest 04/30/2020 1+ (A) Negative Final Comment 04/30/2020 SEE COMMENT Final Urine Oni Comment 04/30/2020 SEE COMMENT Final WBC, Urine 04/30/2020 0-5 0 - 5 /HPF Final RBC, Urine 04/30/2020 0-3 0 - 3 /HPF Final Epithelial Cells 04/30/2020 SEE COMMENT /HPF Final Impression: Leonel Rutledge is a 62 year old female with Class III obesity (Body mass index is 53.01 kg/m .) who has childhood onset obesity with several periods of weight loss followed by weight gain . The causes of her obesity are multifactorial, biological, psychological and social and environmental. Specific factors include increased consumption of high calorie/process foods, irregular eating patterns , suboptimal physical activity, inadequate sleep duration, poor sleep quality, and post weight retention. She has few weight-related medical comorbidities which increase her cardiovascular mortality risk. There may be possible additional metabolic obesity complications awaiting lab results. Other medical conditions as above. Regarding her lifestyle, as above, she has several behavioral contributors; her physical activity is non-existent. Overall, it is clear that her quality of life is severely compromised by her weight. It is likely a combination of weight loss therapies will be needed. She appears motivated today. Plan: -- Based on the severity and resistance of the obesity/overweight with co-morbidities, I believe a combination of behavioral and pharmacological intervention is the best and most appropriate group home therapeutic option. -- We discussed several strategies to track food intake and increase mindfulness around eating. She was counseled on the following: Eating primarily whole foods. Limit carbs, especially processed carbs. Do not drink your calories 30 grams of protein for breakfast decreases your hunger during the day by up to 40 % Premier Protein or generic 30 gm protein 1 gm sugar Walk for 15 minutes immediately a meal. -- Encouraged the patient to improve her physical activity. Although cardiovascular exercise is most beneficial for weight loss initially, we discussed healthy muscle from a combination of resistance training and cardiovascular exercise is the best group home plan. An overall goal of 150-200 minutes per week of exercise has been effective in weight loss and maintenance. -- follow-up visit for management of above interventions -- Reviewed that monitoring weight daily and food intake can have a positive impact on overall weight loss and maintenance of weight loss. Activity tracking can be used to stay on target for exercise however should not be used to reward oneself - Last Wt 07/01/22 : 289 lb 12.8 oz (131.5 kg) 5% weight loss = 275 lbs, 10% weight loss = 261 lbs She understands that there can be limitations of pharmacotherapy due to contraindications, side effects and cost. Patient was told to contact her insurance company to see what AOMs and supervised behavioral medical appointments are currently covered. Patient understands she will have more success when following a healthy lifestyle. We reviewed continued use of online tracking of daily weights, food journal and if desired physical activity. We did review Bariatric surgery- pt not interested in this yet. Pt is willing to pay out of pocket for medications - is interested in Injectables. Pt has strong family h/o Cardiac disease- she would likely benefit from a GLP1. We discussed each oral medication as well. She would be a candidate for topiramate, phentermine, bupropion with naltrexone. Patient at this time is more interested in injectable and again she is willing to pay [id number]. She understands that weight loss will be a lifelong maintenance with medications most likely. We reviewed that during management she is to report any concerning side effects of any pharmacotherapy she is placed on. She understands that she will need routine follow up in the office. Prior to any virtual visits in the future she will need to check her Blood pressure, weight, and pulse. Last 14 BP Last 14 Encounter BP Readings: Date: BP: 07/01/2022 130/84 01/15/2022 122/86 01/03/2021 136/82 08/30/2020 116/86 04/30/2020 138/90 08/07/2018 130/76 07/20/2018 138/82 04/23/2017 130/80 04/12/2017 128/70 01/29/2017 112/80 01/26/2017 124/76 01/26/2017 122/82 01/26/2017 122/82 01/19/2017 146/92 Abdominal obesity: waist circumference >35cm inches (88cm) YES Serum triglycerides: >= 150 mg/dL or drug treatment for elevated triglycerides YES Serum HDL: <50mg/dL or drug treatment for Low HDL cholesterol YES Blood Pressure: >= 130/85 or drug treatment for elevated BP yes see above Fasting Plasma Glcuose: >= 100 mg/dL or drug treatment for elevated blood glucose results pending ASSESSMENT/PLAN: 1. Class 3 severe obesity due to excess calories with body mass index (BMI) of 50.0 to 59.9 in adult, unspecified whether serious comorbidity present (HCC) - ICD9: 278.01, V85.43, ICD10: E66.01, Z68.43 (primary diagnosis) Weight increasing - Behavioral and pharmacological intervention 2. Metabolic syndrome - ICD9: 277.7, ICD10: E88.81 3. Dyslipidemia - ICD9: 272.4, ICD10: E78.5 - suboptimal control - Check fasting lipid panel 4. Depression, unspecified depression type - ICD9: 311, ICD10: F32.A 5. Arthralgia, unspecified joint - ICD9: 719.40, ICD10: M25.50 6. Family history of cardiac disorder - ICD9: V17.49, ICD10: Z82.49 7. Encounter for weight management - ICD9: V65.49, ICD10: Z76.89 8. STOPBANG SCORE Elevated- RISK of ERASMO- will send for sleep study - [facility]. SNORING- 9. All obesity labs- tsh, lipid panel, cmp, vit d, cbc, insulin assay hga1c will be done at [facility] 10. Pt desires follow up every 2 weeks. 11. We reviewed GLP-1 medications versus oral medications at this time patient would like to proceed with likely GLP-1. We will get her labs back and then make her final decision. We discussed that Mounjaro is now only approved for type 2 diabetes however patient would like to consider this as off label use and pay [id number]. We did discuss that Trulicity may be an option once we get her labs back. She does have metabolic syndrome based on today's exam. Patient understands to look on the AVS for information that we discussed at today's visit. I spent a total of 60 minutes on the date of the service which included preparing to see the patient, [id number] patient care, completing clinical documentation, obtaining and/or reviewing separately obtained history, performing a medically appropriate examination, counseling and educating the patient/family/caregiver, and ordering medications, tests, or procedures. Finesse Gramajo MD documented in this encounter [facility] 06-04-2022 Note Patient Outreach (IN [facility]) LEONEL RUTLEDGE ([id number]) 1960 F Date Time Provider Department 06/04/22 ELINA JEAN BAPTISTE During your visit today, we recorded the following information about you: Allergies As of Date: 06/04/2022 Noted Allergy Reaction AUGMENTIN (AMOXICILLIN-POT CLAVUL*04/23/2017 14 - Other: See Comments Comments: yeast infection ERYTHROMYCIN 12/03/2004 8 - GI Upset Date Reviewed: 01/15/2022 Reviewed by: Silvia Alarcon Ma - Fully Assessed Visit Diagnosis:Encounter for screening mammogram for breast cancer [Z12.31] Order(s):[facility] SCREENING [0142630] Order #: [id number] FUTURE Prescriptions as of 06/09/2022 - om 3/E/linol/ala/oleic/gla/lip (OMEGA 3-6-9 ORAL) Take 2 tablets by mouth once daily. Problem List As Of Date 06/04/2022 Noted Resolved Chest pain, unspecified [R07.9] 12/31/2005 07/28/2016 Esophageal reflux [K21.9] 12/31/2005 07/28/2016 Calculus of gallbladder with other cholecystiti*07/13/2007 07/28/2016 Varicose veins of lower extremities with other *07/13/2007 Obesity, Class III, BMI 40-49.9 (morbid obesity*01/05/2008 Fatty liver [K76.0] 06/27/2013 Primary osteoarthritis of both knees [M17.0] 07/28/2016 Lymphadenopathy, axillary [R59.0] 02/06/2017 Encounter Status:Closed by [facility], PRODUSER on 06/09/22 [facility] 01-15-2022 Note HNO ID: [id number] Author: Elina Jean Baptiste MD Service: ? Author Type: Physician Type: Progress Notes Filed: 01/15/2022 12:40 PM Note Text: This note was created using NoteWriter. Subjective Leonel Rutledge is a 61 year old female. HISTORY Leonel Rutledge is a 61 year old lady here for yearly exam and follow up appointment. Working on healthy changes for weight loss. Stayed stable since last year. Sometimes right ear hurting, Had to get water out of ear when showers. Also ?hair follicle infected occipital area of scalp. Does go out in weeks with son. [place] 3 oils for arthritis. Depression Screening 07/28/2016 01/15/2022 PHQ-2 Score 0 0 Depression screening tool completed and reviewed. Based on score and interview, patient is not at risk for depression. Screening tool discussed with patient, and I recommended no further intervention at this time. PAST MEDICAL HISTORY Diagnosis Date Calculus of gallbladder with other cholecystitis, without mention of obstruction 07/13/2007 Fatty liver 06/27/2013 OVERWEIGHT 01/05/2008 Primary osteoarthritis of both knees 07/28/2016 Varicose veins of lower extremities with other complications 07/13/2007 Current Outpatient Medications Medication Sig om 3/E/linol/ala/oleic/gla/lip (OMEGA 3-6-9 ORAL) Take 2 tablets by mouth once daily. No current facility-administered medications for this visit. ALLERGIES Allergen Reactions Augmentin [Amoxicil* Other: See Comments yeast infection Erythromycin GI Upset FAMILY HISTORY Problem Relation Age of Onset Colon Cancer Brother at age 60 Coronary Artery Disease Mother Ischemic Heart Disease Mother Heart Failure Maternal Grandfather other (Precancerous colon polyps) Father Social History Tobacco Use Smoking status: Never Smokeless tobacco: Never Substance Use Topics Alcohol use: No Drug use: No Review of Systems Objective BP 122/86 Pulse 78 Wt 119.7 kg (264 lb) SpO2 96% BMI 47.52 kg/m? Last 5 Encounter Wt Readings: Date: Wt: 01/15/2022 119.7 kg (264 lb) 01/03/2021 116.3 kg (256 lb 6.4 oz) 08/30/2020 120.7 kg (266 lb) 04/30/2020 120.7 kg (266 lb) 08/07/2018 115 kg (253 lb 9.6 oz) No waist measurement recorded Estimated body mass index is 47.52 kg/m? as calculated from the following: Height as of 08/07/18: 158.8 cm (5' 2.5 ). Weight as of this encounter: 119.7 kg (264 lb). Last 5 Encounter BP Readings: Date: BP: 01/15/2022 122/86 01/03/2021 136/82 08/30/2020 116/86 04/30/2020 138/90 08/07/2018 130/76 Physical Exam Vitals reviewed. Constitutional: Appearance: She is well-developed. HENT: Head: Normocephalic and atraumatic. Right Ear: External ear normal. Drainage (small amount dried drainage noted) and swelling (Mild) present. Left Ear: External ear normal. Ears: Comments: Ear canal red on right Nose: Nose normal. Eyes: Conjunctiva/sclera: Conjunctivae normal. Neck: Thyroid: No thyromegaly. Cardiovascular: Rate and Rhythm: Normal rate and regular rhythm. Pulses: Normal pulses. Heart sounds: Normal heart sounds. No murmur heard. No friction rub. No gallop. Pulmonary: Effort: Pulmonary effort is normal. Breath sounds: Normal breath sounds. Abdominal: General: Bowel sounds are normal. There is no distension. Palpations: Abdomen is soft. There is no mass. Tenderness: There is no abdominal tenderness. Musculoskeletal: General: No deformity. Normal range of motion. Lymphadenopathy: Cervical: No cervical adenopathy. Skin: General: Skin is warm and dry. Coloration: Skin is not jaundiced or pale. Findings: No rash. Neurological: General: No focal deficit present. Mental Status: She is alert and oriented to person, place, and time. Cranial Nerves: No cranial nerve deficit. Sensory: No sensory deficit. Motor: No abnormal muscle tone. Coordination: Coordination normal. Deep Tendon Reflexes: Reflexes normal. Psychiatric: Mood and Affect: Mood normal. Behavior: Behavior normal. Thought Content: Thought content normal. Judgment: Judgment normal. Prior labs: Component Latest Ref Rng AND Units 08/07/2018 04/30/2020 Protein, Total 6.3 - 8.0 g/dL 7.3 6.9 Albumin 3.9 - 4.9 g/dL 4.4 4.2 Calcium 8.5 - 10.2 mg/dL 9.4 9.8 Bilirubin, Total 0.2 - 1.3 mg/dL 0.3 0.2 Alkaline Phosphatase 34 - 123 U/L 96 118 AST 13 - 35 U/L 23 26 Glucose 74 - 99 mg/dL 93 93 BUN 7 - 21 mg/dL 13 21 Creatinine 0.58 - 0.96 mg/dL 0.85 0.92 Sodium 136 - 144 mmol/L 141 138 Potassium 3.7 - 5.1 mmol/L 4.7 4.3 Chloride 97 - 105 mmol/L 103 101 CO2 22 - 30 mmol/L 25 26 Anion Gap 9 - 18 mmol/L 13 11 ALT 7 - 38 U/L 26 33 eGFR- >60 >60 eGFR-All Other Races . >60 >60 WBC 3.70 - 11.00 k/uL 4.54 7.73 RBC 3.90 - 5.20 m/uL 4.64 4.58 Hemoglobin 11.5 - 15.5 g/dL 13.8 13.8 Hematocrit 36.0 - 46.0 % 43.3 42.2 MCV 80.0 - 100.0 fL 93.3 92.1 MCH 26.0 - 34.0 pG 29.7 30.1 MCHC 30.5 - 36.0 g/dL 31.9 32.7 RDW-CV (more content not included)... [facility] 01-15-2022 History of Present illness Narrative Images from the original note were not included. This note was created using [employer]. Subjective Leonel Rutledge is a 61 year old female. HISTORY Leonel Rutledge is a 61 year old lady here for yearly exam and follow up appointment. Working on healthy changes for weight loss. Stayed stable since last year. Sometimes right ear hurting, Had to get water out of ear when showers. Also ?hair follicle infected occipital area of scalp. Does go out in weeks with son. [place] 3 oils for arthritis. Depression Screening 07/28/2016 01/15/2022 PHQ-2 Score 0 0 Depression screening tool completed and reviewed. Based on score and interview, patient is not at risk for depression. Screening tool discussed with patient, and I recommended no further intervention at this time. PAST MEDICAL HISTORY Diagnosis Date Calculus of gallbladder with other cholecystitis, without mention of obstruction 07/13/2007 Fatty liver 06/27/2013 OVERWEIGHT 01/05/2008 Primary osteoarthritis of both knees 07/28/2016 Varicose veins of lower extremities with other complications 07/13/2007 Current Outpatient Medications Medication Sig om 3/E/linol/ala/oleic/gla/lip (OMEGA 3-6-9 ORAL) Take 2 tablets by mouth once daily. No current facility-administered medications for this visit. ALLERGIES Allergen Reactions Augmentin [Amoxicil* Other: See Comments yeast infection Erythromycin GI Upset FAMILY HISTORY Problem Relation Age of Onset Colon Cancer Brother at age 60 Coronary Artery Disease Mother Ischemic Heart Disease Mother Heart Failure Maternal Grandfather other (Precancerous colon polyps) Father Social History Tobacco Use Smoking status: Never Smokeless tobacco: Never Substance Use Topics Alcohol use: No Drug use: No Review of Systems Objective BP 122/86 Pulse 78 Wt 119.7 kg (264 lb) SpO2 96% BMI 47.52 kg/m Last 5 Encounter Wt Readings: Date: Wt: 01/15/2022 119.7 kg (264 lb) 01/03/2021 116.3 kg (256 lb 6.4 oz) 08/30/2020 120.7 kg (266 lb) 04/30/2020 120.7 kg (266 lb) 08/07/2018 115 kg (253 lb 9.6 oz) No waist measurement recorded Estimated body mass index is 47.52 kg/m as calculated from the following: Height as of 08/07/18: 158.8 cm (5' 2.5 ). Weight as of this encounter: 119.7 kg (264 lb). Last 5 Encounter BP Readings: Date: BP: 01/15/2022 122/86 01/03/2021 136/82 08/30/2020 116/86 04/30/2020 138/90 08/07/2018 130/76 Physical Exam Vitals reviewed. Constitutional: Appearance: She is well-developed. HENT: Head: Normocephalic and atraumatic. Right Ear: External ear normal. Drainage (small amount dried drainage noted) and swelling (Mild) present. Left Ear: External ear normal. Ears: Comments: Ear canal red on right Nose: Nose normal. Eyes: Conjunctiva/sclera: Conjunctivae normal. Neck: Thyroid: No thyromegaly. Cardiovascular: Rate and Rhythm: Normal rate and regular rhythm. Pulses: Normal pulses. Heart sounds: Normal heart sounds. No murmur heard. No friction rub. No gallop. Pulmonary: Effort: Pulmonary effort is normal. Breath sounds: Normal breath sounds. Abdominal: General: Bowel sounds are normal. There is no distension. Palpations: Abdomen is soft. There is no mass. Tenderness: There is no abdominal tenderness. Musculoskeletal: General: No deformity. Normal range of motion. Lymphadenopathy: Cervical: No cervical adenopathy. Skin: General: Skin is warm and dry. Coloration: Skin is not jaundiced or pale. Findings: No rash. Neurological: General: No focal deficit present. Mental Status: She is alert and oriented to person, place, and time. Cranial Nerves: No cranial nerve deficit. Sensory: No sensory deficit. Motor: No abnormal muscle tone. Coordination: Coordination normal. Deep Tendon Reflexes: Reflexes normal. Psychiatric: Mood and Affect: Mood normal. Behavior: Behavior normal. Thought Content: Thought content normal. Judgment: Judgment normal. Prior labs: Component Latest Ref Rng & Units 08/07/2018 04/30/2020 Protein, Total 6.3 - 8.0 g/dL 7.3 6.9 Albumin 3.9 - 4.9 g/dL 4.4 4.2 Calcium 8.5 - 10.2 mg/dL 9.4 9.8 Bilirubin, Total 0.2 - 1.3 mg/dL 0.3 0.2 Alkaline Phosphatase 34 - 123 U/L 96 118 AST 13 - 35 U/L 23 26 Glucose 74 - 99 mg/dL 93 93 BUN 7 - 21 mg/dL 13 21 Creatinine 0.58 - 0.96 mg/dL 0.85 0.92 Sodium 136 - 144 mmol/L 141 138 Potassium 3.7 - 5.1 mmol/L 4.7 4.3 Chloride 97 - 105 mmol/L 103 101 CO2 22 - 30 mmol/L 25 26 Anion Gap 9 - 18 mmol/L 13 11 ALT 7 - 38 U/L 26 33 eGFR- >60 >60 eGFR-All Other Races . >60 >60 WBC 3.70 - 11.00 k/uL 4.54 7.73 RBC 3.90 - 5.20 m/uL 4.64 4.58 Hemoglobin 11.5 - 15.5 g/dL 13.8 13.8 Hematocrit 36.0 - 46.0 % 43.3 42.2 MCV 80.0 - 100.0 fL 93.3 92.1 MCH 26.0 - 34.0 pG 29.7 30.1 MCHC 30.5 - 36.0 g/dL 31.9 32.7 RDW-CV 11.5 - 15.0 % 12.8 12.0 Platelet Count 150 - 400 k/uL 254 254 MPV 9.0 - 12.7 fL 9.7 9.6 Absolute nRBC <0.01 k/uL <0.01 <0.01 Cholesterol, Total <200 mg/dL 193 Triglyceride <150 mg/dL 104 HDL Cholesterol >39 mg/dL 50 LDL Cholesterol <100 mg/dL 122 (H) Non HDL Cholesterol <130 mg/dL 143 (H) Fasting Time hrs 12 VLDL Cholesterol <30 mg/dL 21 TC:HDL Ratio <5.10 3.86 LDL:HDL Ratio <2.54 2.44 Total Cholesterol, Nonfasting <200 mg/dL 218 (H) Triglycerides, Nonfasting <150 mg/dL 252 (H) HDL Cholesterol, Nonfasting >39 mg/dL 45 LDL Cholesterol, Nonfasting <100 mg/dL 123 (H) Non HDL Cholesterol, Nonfasting <130 mg/dL 173 (H) VLDL Cholesterol, Nonfasting <30 mg/dL 50 (H) Total Chol/HDL Ratio, Nonfasting <5.10 mg/dL 4.84 LDL/HDL Ratio, Nonfasting <2.54 mg/dL 2.73 (H) TSH 0.400 - 5.500 uU/mL 3.490 Free T4 0.9 - 1.7 ng/dL 1.1 Free T3 2.3 - 4.1 pg/mL 2.7 The 10-year ASCVD risk score (Praveena DK, et al., 2019) is: 4.8% Values used to calculate the score: Age: 61 years Sex: Female Is Non- : No Diabetic: No Tobacco smoker: No Systolic Blood Pressure: 122 mmHg Is BP treated: No HDL Cholesterol: 45 mg/dL Total Cholesterol: 218 mg/dL Assessment and Plan ASSESSMENT/PLAN: 1. Routine medical exam - ICD9: V70.0, ICD10: Z00.00 (primary diagnosis) - Counseled on healthy diet and regular exercise - Calcium intake with supplements or by diet of 1000 mg/day for under 50, 4392-6566 mg/day for 50+ - Discussed need and benefit for weight loss. BMI 47.52 kg/(m^2) - Follow up for annual exam in one year 2. Acute swimmer's ear of right side - ICD9: 380.12, ICD10: H60.331 - KATWMTOM-UMITAXSZM-OVNYSBETK 3.5 MG/ML-10,000 UNIT/ML-1 % EAR SOLUTION 3. Bacterial folliculitis - ICD9: 704.8, ICD10: L73.8 - DOXYCYCLINE HYCLATE 100 MG TABLET 4. Need for vaccination - ICD9: V05.9, ICD10: Z23 - TDAP VACCINE AGE 7+ IM Elina Jean Baptiste MD documented in this encounter [facility] documented as of this encounter (statuses as of 01/15/2022) [address]15-2008 History of Past illness Narrative* Problem Noted Date Resolved Date Calculus of gallbladder with other cholecystitis, without mention of obstruction 07/13/2007 07/28/2016 Chest pain, unspecified 12/31/2005 07/29/19 17 Esophageal reflux 12/31/2005 07/28/2016 documented as of this encounter (statuses as of 06/09/2022) [address] History of Past illness Narrative* Problem Noted Date Resolved Date Calculus of gallbladder with other cholecystitis, without mention of obstruction 07/13/2007 07/28/2016 Chest pain, unspecified 12/31/2005 07/29/19 17 Esophageal reflux 12/31/2005 07/28/2016 documented as of this encounter (statuses as of 07/01/2022) [facility] History of Past illness Narrative* Problem Noted Date Resolved Date Calculus of gallbladder with other cholecystitis, without mention of obstruction 07/13/2007 07/28/2016 Chest pain, unspecified 12/31/2005 07/29/19 17 Esophageal reflux 12/31/2005 07/28/2016 documented as of this encounter (statuses as of 07/03/2022) [address] History of Past illness Narrative* Problem Noted Date Resolved Date Calculus of gallbladder with other cholecystitis, without mention of obstruction 07/13/2007 07/28/2016 Chest pain, unspecified 12/31/2005 07/29/19 17 Esophageal reflux 12/31/2005 07/28/2016 documented as of this encounter (statuses as of 07/07/2022) [address] History of Past illness Narrative* Problem Noted Date Resolved Date Calculus of gallbladder with other cholecystitis, without mention of obstruction 07/13/2007 07/28/2016 Chest pain, unspecified 12/31/2005 07/29/19 17 Esophageal reflux 12/31/2005 07/28/2016 documented as of this encounter (statuses as of 07/08/2022) [address] History of Past illness Narrative* Problem Noted Date Resolved Date Calculus of gallbladder with other cholecystitis, without mention of obstruction 07/13/2007 07/28/2016 Chest pain, unspecified 12/31/2005 07/29/19 17 Esophageal reflux 12/31/2005 07/28/2016 documented as of this encounter (statuses as of 07/08/2022) [address] History of Past illness Narrative* Problem Noted Date Resolved Date Calculus of gallbladder with other cholecystitis, without mention of obstruction 07/13/2007 07/28/2016 Chest pain, unspecified 12/31/2005 07/29/19 17 Esophageal reflux 12/31/2005 07/28/2016 documented as of this encounter (statuses as of 07/10/2022) [address] History of Past illness Narrative* Problem Noted Date Resolved Date Calculus of gallbladder with other cholecystitis, without mention of obstruction 07/13/2007 07/28/2016 Chest pain, unspecified 12/31/2005 07/29/19 17 Esophageal reflux 12/31/2005 07/28/2016 documented as of this encounter (statuses as of 07/10/2022) [address] History of Past illness Narrative* Problem Noted Date Resolved Date Calculus of gallbladder with other cholecystitis, without mention of obstruction 07/13/2007 07/28/2016 Chest pain, unspecified 12/31/2005 07/29/19 17 Esophageal reflux 12/31/2005 07/28/2016 documented as of this encounter (statuses as of 07/11/2022) [address] History of Past illness Narrative* Problem Noted Date Resolved Date Calculus of gallbladder with other cholecystitis, without mention of obstruction 07/13/2007 07/28/2016 Chest pain, unspecified 12/31/2005 07/29/19 17 Esophageal reflux 12/31/2005 07/28/2016 documented as of this encounter (statuses as of 07/12/2022) [address] History of Past illness Narrative* Problem Noted Date Resolved Date Calculus of gallbladder with other cholecystitis, without mention of obstruction 07/13/2007 07/28/2016 Chest pain, unspecified 12/31/2005 07/29/19 17 Esophageal reflux 12/31/2005 07/28/2016 documented as of this encounter (statuses as of 07/14/2022) [address] History of Past illness Narrative* Problem Noted Date Resolved Date Calculus of gallbladder with other cholecystitis, without mention of obstruction 07/13/2007 07/28/2016 Chest pain, unspecified 12/31/2005 07/29/19 17 Esophageal reflux 12/31/2005 07/28/2016 documented as of this encounter (statuses as of 07/17/2022) [address] History of Past illness Narrative* Problem Noted Date Resolved Date Calculus of gallbladder with other cholecystitis, without mention of obstruction 07/13/2007 07/28/2016 Chest pain, unspecified 12/31/2005 07/29/19 17 Esophageal reflux 12/31/2005 07/28/2016 documented as of this encounter (statuses as of 07/22/2022) [address] History of Past illness Narrative* Problem Noted Date Resolved Date Calculus of gallbladder with other cholecystitis, without mention of obstruction 07/13/2007 07/28/2016 Chest pain, unspecified 12/31/2005 07/29/19 17 Esophageal reflux 12/31/2005 07/28/2016 documented as of this encounter (statuses as of 07/31/2022) [address] History of Past illness Narrative* Problem Noted Date Resolved Date Calculus of gallbladder with other cholecystitis, without mention of obstruction 07/13/2007 07/28/2016 Chest pain, unspecified 12/31/2005 07/29/19 17 Esophageal reflux 12/31/2005 07/28/2016 documented as of this encounter (statuses as of 08/06/2022) [address] History of Past illness Narrative* Problem Noted Date Resolved Date Calculus of gallbladder with other cholecystitis, without mention of obstruction 07/13/2007 07/28/2016 Chest pain, unspecified 12/31/2005 07/29/19 17 Esophageal reflux 12/31/2005 07/28/2016 documented as of this encounter (statuses as of 08/08/2022) [address] History of Past illness Narrative* Problem Noted Date Resolved Date Calculus of gallbladder with other cholecystitis, without mention of obstruction 07/13/2007 07/28/2016 Chest pain, unspecified 12/31/2005 07/29/19 Esophageal reflux 12/31/2005 07/28/2016 documented as of this encounter (statuses as of 09/01/2022) [address] History of Past illness Narrative* Problem Noted Date Diagnosed Date Resolved Date Calculus of gallbladder with other cholecystitis, without mention of obstruction 07/13/2007 07/28/2016 Chest pain, unspecified 12/31/200503/2016 Esophageal reflux 12/31/2005 07/28/2016 documented as of this encounter (statuses as of 11/03/2022) [address]15-2008 History of Past illness Narrative* Problem Noted Date Diagnosed Date Resolved Date Calculus of gallbladder with other cholecystitis, without mention of obstruction 07/13/2007 07/28/2016 Chest pain, unspecified 12/31/200503/2016 Esophageal reflux 12/31/2005 07/28/2016 documented as of this encounter (statuses as of 12/16/2022) [address]15-2008 History of Past illness Narrative* Problem Noted Date Diagnosed Date Resolved Date Calculus of gallbladder with other cholecystitis, without mention of obstruction 07/13/2007 07/28/2016 Chest pain, unspecified 12/31/200503/2016 Esophageal reflux 12/31/2005 07/28/2016 documented as of this encounter (statuses as of 01/09/2023) [address]15-2008 History of Past illness Narrative* Problem Noted Date Diagnosed Date Resolved Date Calculus of gallbladder with other cholecystitis, without mention of obstruction 07/13/2007 07/28/2016 Chest pain, unspecified 12/31/200503/2016 Esophageal reflux 12/31/2005 07/28/2016 documented as of this encounter (statuses as of 01/09/2023) [address]-2008 History of Past illness Narrative* Problem Noted Date Diagnosed Date Resolved Date Calculus of gallbladder with other cholecystitis, without mention of obstruction 07/13/2007 07/28/2016 Chest pain, unspecified 12/31/200503/2016 Esophageal reflux 12/31/2005 07/28/2016 documented as of this encounter (statuses as of 03/04/2023) [facility] note* Diagnosis Routine medical exam- Primary Routine general medical examination at a health care facility Acute swimmer's ear of right side Bacterial folliculitis Other specified disease of hair and hair follicles Need for vaccination Need for prophylactic vaccination and inoculation against unspecified single disease [facility]* Diagnosis Encounter for screening mammogram for breast cancer documented in this encounter [facility] note* Diagnosis Metabolic syndrome- Primary Dysmetabolic Syndrome X Dyslipidemia Other and unspecified hyperlipidemia Depression, unspecified depression type Arthralgia, unspecified joint Family history of cardiac disorder Family history of other cardiovascular diseases Snoring Other dyspnea and respiratory abnormality Hypersomnia Hypersomnia, unspecified Class 3 severe obesity due to excess calories with body mass index (BMI) of 50.0 to 59.9 in adult, unspecified whether serious comorbidity present (HCC) Encounter for weight management documented in this encounter [facility] note* Diagnosis Metabolic syndrome- Primary Dysmetabolic Syndrome X Snoring Other dyspnea and respiratory abnormality Hypersomnia Hypersomnia, unspecified Class 3 severe obesity due to excess calories with body mass index (BMI) of 50.0 to 59.9 in adult, unspecified whether serious comorbidity present (HCC) documented [facility]* Diagnosis Type 2 diabetes (HCC)- Primary documented in this encounter [facility]* Diagnosis Subclinical hypothyroidism- Primary Other specified acquired hypothyroidism documented [facility]* Diagnosis Diabetes mellitus type 2 (HCC)- Primary documented in [facility]* Diagnosis Class 3 severe obesity with serious comorbidity and body mass index (BMI) of 50.0 to 59.9 in adult, unspecified obesity type (HCC)- Primary Dyslipidemia Other and unspecified hyperlipidemia Type 2 diabetes (HCC) Hyperinsulinemia Other specified hypoglycemia documented in this encounter [facility] note* Diagnosis Metabolic syndrome- Primary Dysmetabolic Syndrome X Elevated glucose tolerance test Impaired glucose tolerance test Class 3 severe obesity with body mass index (BMI) of 50.0 to 59.9 in adult, unspecified obesity type, unspecified whether serious comorbidity present (HCC) Hypothyroidism, unspecified type Dyslipidemia Other and unspecified hyperlipidemia Encounter for weight management documented in this encounter [facility] note* Diagnosis Subclinical hypothyroidism Other specified acquired hypothyroidism documented [facility]* Diagnosis Subclinical hypothyroidism Other specified acquired hypothyroidism [facility]* Diagnosis Insect stings, accidental or unintentional, initial encounter- Primary Cellulitis of left lower extremity Cellulitis and abscess of leg, except foot documented in this encounter [facility]* Diagnosis Subclinical hypothyroidism Other specified acquired hypothyroidism [facility] Diagnostic Procedure Only (Routine) - Pending Review Specialty Diagnoses / Procedures Referred By Mady t Referred To Contact [facility] Diagnoses Encounter for screening mammogram for breast cancer Procedures JOAN SCREENING SCREENING MAMMOGRAPHY BI 2-VIEW BREAST INC CAD Elina Jean Baptiste MD [address] [place] [address] [facility] [address] [place] [address] Referral ID Status Reason Start Date Expiration Date Visits Requested Visits Authorized [id number] Pending Review Auto-Generat ed Referral 06/04/2022 07/04/2023 1 1 [facility] Summary Purpose Family History No Family History Records FoundNo Family History Records Found Advance Directives No Advanced Directives Records FoundNo Advanced Directives Records Found Reason for Referral Specialty Diagnoses / Procedures Referred By Mady tellez Referred To Contact Diagnoses Type 2 diabetes (HCC) Finesse Ocasio MD [address] [place] [address] Referral ID Status Reason Start Date Expiration Date V isits Requested Visits Authorized [id number] Pending Review 1 1 Specialty Diagnoses / Procedures Referred By Mady t Referred To Contact Diagnoses Diabetes mellitus type 2 (HCC) Finesse Ocasio MD [address] [place] [address] Referral ID Status Reason Start Date Expiration Date V isits Requested Visits Authorized [id number] Pending Review 1 1 Additional Source Comments INFORMATION SOURCE (unrecogn ized section and content) DATE CREATED AUTHOR AUTHOR'S ORGANIZ ATION 01/10/2023 [facility] Source Comments (unrecognize d section and content) In the event this informatio n is protected by the Federal Confidentiality of Alcohol and Drug Abuse Patient Records regulations: The Federal rules restrict any use of the information to criminally investigate or prosecute any alcohol or drug abuse patient.[facility] Healthcare[facility] the event this information is protected by the Federal Confidentiality of Alcohol and Drug Abuse Patient Records regulations: The Federal rules restrict any use of the information to criminally investigate or prosecute any alcohol or drug abuse patient.[facility] HealthcareIn the event this information is protected by the Federal Confidentiality of Alcohol and Drug Abuse Patient Records regulations: The Federal rules restrict any use of the information to criminally investigate or prosecute any alcohol or drug abuse patient.[facility] HealthcareIn the event this information is protected by the Federal Confidentiality of Alcohol and Drug Abuse Patient Records regulations: The Federal rules restrict any use of the information to criminally investigate or prosecute any alcohol or drug abuse patient.[facility] HealthcareIn the event this information is protected by the Federal Confidentiality of Alcohol and Drug Abuse Patient Records regulations: The Federal rules restrict any use of the information to criminally investigate or prosecute any alcohol or drug abuse patient.[facility] HealthcareIn the event this information is protected by the Federal Confidentiality of Alcohol and Drug Abuse Patient Records regulations: The Federal rules restrict any use of the information to criminally investigate or prosecute any alcohol or drug abuse patient.[facility] HealthcareIn the event this information is protected by the Federal Confidentiality of Alcohol and Drug Abuse Patient Records regulations: The Federal rules restrict any use of the information to criminally investigate or prosecute any alcohol or drug abuse patient.[facility] HealthcareIn the event this information is protected by the Federal Confidentiality of Alcohol and Drug Abuse Patient Records regulations: The Federal rules restrict any use of the information to criminally investigate or prosecute any alcohol or drug abuse patient.[facility] HealthcareIn the event this information is protected by the Federal Confidentiality of Alcohol and Drug Abuse Patient Records regulations: The Federal rules restrict any use of the information to criminally investigate or prosecute any alcohol or drug abuse patient.[facility] HealthcareIn the event this information is protected by the Federal Confidentiality of Alcohol and Drug Abuse Patient Records regulations: The Federal rules restrict any use of the information to criminally investigate or prosecute any alcohol or drug abuse patient.[facility] HealthcareIn the event this information is protected by the Federal Confidentiality of Alcohol and Drug Abuse Patient Records regulations: The Federal rules restrict any use of the information to criminally investigate or prosecute any alcohol or drug abuse patient.[facility] HealthcareIn the event this information is protected by the Federal Confidentiality of Alcohol and Drug Abuse Patient Records regulations: The Federal rules restrict any use of the information to criminally investigate or prosecute any alcohol or drug abuse patient.[facility] HealthcareIn the event this information is protected by the Federal Confidentiality of Alcohol and Drug Abuse Patient Records regulations: The Federal rules restrict any use of the information to criminally investigate or prosecute any alcohol or drug abuse patient.[facility] HealthcareIn the event this information is protected by the Federal Confidentiality of Alcohol and Drug Abuse Patient Records regulations: The Federal rules restrict any use of the information to criminally investigate or prosecute any alcohol or drug abuse patient.[facility] HealthcareIn the event this information is protected by the Federal Confidentiality of Alcohol and Drug Abuse Patient Records regulations: The Federal rules restrict any use of the information to criminally investigate or prosecute any alcohol or drug abuse patient.[facility] HealthcareIn the event this information is protected by the Federal Confidentiality of Alcohol and Drug Abuse Patient Records regulations: The Federal rules restrict any use of the information to criminally investigate or prosecute any alcohol or drug abuse patient.[facility] HealthcareIn the event this information is protected by the Federal Confidentiality of Alcohol and Drug Abuse Patient Records regulations: The Federal rules restrict any use of the information to criminally investigate or prosecute any alcohol or drug abuse patient.[facility] HealthcareIn the event this information is protected by the Federal Confidentiality of Alcohol and Drug Abuse Patient Records regulations: The Federal rules restrict any use of the information to criminally investigate or prosecute any alcohol or drug abuse patient.[facility] HealthcareIn the event this information is protected by the Federal Confidentiality of Alcohol and Drug Abuse Patient Records regulations: The Federal rules restrict any use of the information to criminally investigate or prosecute any alcohol or drug abuse patient.[facility] HealthcareIn the event this information is protected by the Federal Confidentiality of Alcohol and Drug Abuse Patient Records regulations: The Federal rules restrict any use of the information to criminally investigate or prosecute any alcohol or drug abuse patient.[facility] HealthcareIn the event this information is protected by the Federal Confidentiality of Alcohol and Drug Abuse Patient Records regulations: The Federal rules restrict any use of the information to criminally investigate or prosecute any alcohol or drug abuse patient.[facility] HealthcareIn the event this information is protected by the Federal Confidentiality of Alcohol and Drug Abuse Patient Records regulations: The Federal rules restrict any use of the information to criminally investigate or prosecute any alcohol or drug abuse patient.[facility] HealthcareIn the event this information is protected by the Federal Confidentiality of Alcohol and Drug Abuse Patient Records regulations: The Federal rules restrict any use of the information to criminally investigate or prosecute any alcohol or drug abuse patient.[facility] HealthcareIn the event this information is protected by the Federal Confidentiality of Alcohol and Drug Abuse Patient Records regulations: The Federal rules restrict any use of the information to criminally investigate or prosecute any alcohol or drug abuse patient.[facility] Reason for Visit (unrecogniz ed section and content) Specialty Diagnoses / Procedures Referred By Mady tellez Referred To Contact [facility] Diagnoses physical Procedures physical Elina Jean Baptiste MD [address] [place] [address] Intm [facility] [address] [address] [place] [address] Referral ID Status Reason Start Date Expiration Date V isits Requested Visits Authorized [id number] Closed OON/Self Pay Override 06/18/2021 09/16/2021 1 1 Reason Comments Follow Up Weight management fi rst visit Specialty Diagnoses / Procedures Referred By Mady tellez Referred To Contact [facility] Diagnoses WEIGHTLOSS PROGRAM Procedures EST [facility] PATIENT Self Finesse Ocasio MD [address] [place] [address] Referral ID Status Reason Start Date Expiration Date Visits Requested Visits Authorized [id number] Outside PCP OON/Self Pay Override 06/02/2022 11/29/2022 1 1 Reason Comments Polysomnogram Reason Comments Outside Lab Results Reason Comments Results Reason Comments Insurance Authorization Reason Comments Sleep study Reason Comments Medication Problem Insurance Authorization Reason Comments Weight Management Specialty Diagnoses / Procedures Referred By Mady tellez Referred To Contact [facility] Diagnoses Encounter for weight management Procedures WEIGHT RECORD OFFICE/OUTPATIENT EST PT MAY NOT REQ PHYS/QHP OFFICE/OUTPATIENT ESTABLISHED SF MDM 10-19 MIN OFFICE/OUTPATIENT ESTABLISHED LOW MDM 20-29 MIN OFFICE/OUTPATIENT ESTABLISHED MOD MDM 30-39 MIN OFFICE/OUTPATIENT ESTABLISHED HIGH MDM 40-54 MIN Finesse Ocasio MD [address] [place] [address] [employer] [facility] [address] [place] [address] Referral ID Status Reason Start Date Expiration Date Visits Requested Visits Authorized [id number] Authorized OON/Self Pay Override 03/30/2022 03/29/2023 99 99 Reason Onset Date Comments Refill Request Refill Request 08/06/2022 Reason Comments Patient Question Reason Comments Patient Update Reason Comments Refill Request Reason Comments Acute Visit Insect bite/sting on Thursday Specialty Diagnoses / Procedures Referred By Mady tellez Referred To Contact [facility] Diagnoses bee or spider bite Procedures OV Self Intm [facility] [address] [address] [place] [address] Referral ID Status Reason Start Date Expiration Date Visits Requested Visits Authorized [id number] Outside PCP OON/Self Pay Override 11/14/2022 05/13/2023 1 1 Reason Onset Date Comments Refill Request 03/04/2023 Care Teams (unrecognized sec tion and content) Stripe Matcher Relationship Specialty Start Date End Date Elina Jean Baptiste MD [address] [place] [address] PCP - General Internal Medicine 08/07/18 Stripe Matcher Relationship Specialty Start Date End Date Elina Jean Baptiste MD [address] [place] [address] PCP - General Internal Medicine 08/07/18 Stripe Matcher Relationship Specialty Start Date End Date Elina Jean Baptiste MD [address] [place] [address] PCP - General Internal Medicine 08/07/18 Stripe Matcher Relationship Specialty Start Date End Date Elina Jean Baptiste MD [address] [place] [address] PCP - General Internal Medicine 08/07/18 Stripe Matcher Relationship Specialty Start Date End Date Elina Jean Baptiste MD [address] [facility] [place] [address] PCP - General Internal Medicine 08/07/18 Stripe Matcher Relationship Specialty Start Date End Date Elina Jean Baptiste MD [address] [place] [address], [place] [address] PCP - General Internal Medicine 08/07/18 Stripe Matcher Relationship Specialty Start Date End Date Elina Jean Baptiste MD [address] [place] [address], [place] [address] PCP - General Internal Medicine 08/07/18 Stripe Matcher Relationship Specialty Start Date End Date Elina Jean Baptiste MD [address] [place] [address], [place] [address] PCP - General Internal Medicine 08/07/18 Stripe Matcher Relationship Specialty Start Date End Date Elina Jean Baptiste MD [address] [place] [address], [place] [address] PCP - General Internal Medicine 08/07/18 Stripe Matcher Relationship Specialty Start Date End Date Elina Jean Baptiste MD [address] [place] [address], [place] [address] PCP - General Internal Medicine 08/07/18 Stripe Matcher Relationship Specialty Start Date End Date Elina Jean Baptiste MD [address] [place] [address], [place] [address] PCP - General Internal Medicine 08/07/18 Stripe Matcher Relationship Specialty Start Date End Date Elina Jean Baptiste MD [address] [place] [address], [place] [address] PCP - General Internal Medicine 08/07/18 Stripe Matcher Relationship Specialty Start Date End Date Elina Jean Baptiste MD [address] [place] [address], [place] [address] PCP - General Internal Medicine 08/07/18 Stripe Matcher Relationship Specialty Start Date End Date Elina Jean Baptiste MD [address] [facility] [place] [address] PCP - General Internal Medicine 08/07/18 Stripe Matcher Relationship Specialty Start Date End Date Elina Jean Baptiste MD [address] [facility] [place] [address] PCP - General Internal Medicine 08/07/18 Stripe Matcher Relationship Specialty Start Date End Date Elina Jean Baptiste MD [address] [facility], [place] [address] PCP - General Internal Medicine 08/07/18 Stripe Matcher Relationship Specialty Start Date End Date Elina Jean Baptiste MD [address] [facility], [place] [address] PCP - General Internal Medicine 08/07/18 FOR RECORDS PERTAINING TO PATIENTS WHO ARE OR HAVE BEEN ENROLLED IN A CHEMICAL DEPENDENCY/SUBSTANCEABUSE PROGRAM, SOME INFORMATION MAY BE OMITTED. This clinical summary was aggregated from multiple sources. Caution should be exercised in using it in the provision of clinical care. This summary normalizes information from multiple sources, and as a consequence, information in this document may materially change the coding, format and clinical context of patient data. In addition, data may be omitted in some cases. CLINICAL DECISIONS SHOULD BE BASED ON THE PRIMARY CLINICAL RECORDS. [employer] provides no warranty or guarantee of the accuracy or completeness of information in this document.
[2023-03-26 08:58] LABS: AST(SGOT) 32 U/L (15-37); Alanine Aminotransfer ALT/SGPT 69 U/L (13-56); Albumin, Serum 3.7 g/dL (3.2-5.0); Alkaline Phosphatase 89 U/L (45-117); Bilirubin, Direct 0.15 mg/dL (0.00-0.30); Cholesterol 189 mg/dL (200); Globulin 3.9 g/dL (2.2-4.2); High Density Lipoprotein 49 mg/dL; Protein, Total 7.6 g/dL (6.4-8.2); Triglycerides 131 mg/dL; Very Low Density Lipoprotein 26 mg/dL (5-40)
== END | disposition home or self-care (01) ==
LOC: LAB 07:32
PROVIDERS: PCP Internal Medicine; Referring Provider Nurse Practitioner Gerontology; Visit Provider Nurse Practitioner Gerontology
DX: E78.5 Hyperlipidemia, unspecified (principal)
CPT/HCPCS: 36415; 80061; 80076

== ENCOUNTER 2023-04-20 08:21 | Outpatient (RCR) | payer MEDICARE, OTHER, SELFPAY | END 2023-04-29 23:59 | LOC: NS 08:21 | PROVIDERS: PCP Internal Medicine; Visit Provider Nurse Practitioner Family | DX: Z71.3 Dietary counseling and surveillance (principal); E11.9 Type 2 diabetes mellitus without complications | CPT/HCPCS: 97802 ==

== ENCOUNTER → 2023-04-30 | Outpatient (CLI) | payer MEDICARE, OTHER, SELFPAY ==
--- NOTE | 2023-04-30 09:53 | BI_ITS ---
MAMMOGRAPHY - BILATERAL SCREENING REASON FOR EXAM: Female, 63 years old. Routine annual screening examination. PERTINENT HISTORY: Non-contributory. TECHNIQUE: Digital bilateral breast inez (3D mammographic acquisition) in the CC and MLO projections. 2-D mediolateral oblique (MLO) and craniocaudad (CC) views of both breasts were obtained. CAD: Full Field Digital Mammography with Computer Added Detection was performed. COMPARISON: Comparison is made with prior outside examination of May 02, 2020. FINDINGS: Breast Composition: The breasts are almost entirely fatty. There are no dominant masses or suspicious calcifications. Stable small benign appearing bilateral axillary lymph nodes. No other significant abnormalities are identified. There has been no significant change since the prior study. BI/SCRN MAMM (CAD)W/INEZ BILAT IMPRESSION: Stable bilateral screening mammogram. Yearly follow-up mammogram recommended. (A) ASSESSMENT CATEGORY: BIRADS Category 2: Benign. A letter regarding these results will be sent to the patient by the facility within 30 days. Approximately 10% of breast cancers are not detected by mammography. A normal mammogram should not delay biopsy of a clinically suspicious abnormality. [id number] Electronically Signed: Galdino Mcleod MD at 13:48 EST ,
--- NOTE | 2023-04-30 10:04 | BD_ITS ---
STUDY: DUAL ENERGY X-RAY ABSORPTIOMETRY / DXA REASON FOR EXAM: Female, 63 years old. 733.00OsteoporosisBONE DENSITY REASON FOR EXAM TECHNIQUE: Bone Mineral Density (BMD) measurements of lumbar spine and bilateral hips were obtained. COMPARISON: None. FINDINGS: Lumbar Spine (L1-L4): g/cm2 (0.909) / T-score (-1.7) / Z-score (0.1) Findings are suggestive of osteopenia with a moderate fracture risk. Left Femur Total: g/cm2 (1.015) / T-score (0.6) / Z-score (1.8) Left Femoral Neck: g/cm2 (0.631) / T-score (-2.0) / Z-score (-0.5) Right Femur Total: g/cm2 (0.982) / T-score (0.3) / Z-score (1.6) Right Femoral Neck: g/cm2 (0.642) / T-score (-1.9) / Z-score (-0.3) BD/Dexa Bone Density Study IMPRESSION: The patient is considered osteopenic as outlined below according to World German Organization (WHO) criteria with a moderate fracture risk. Reference Information: The T-score is the number of standard deviations above or below the standard which is normal for young adults at their peak bone mineral density. The World Health Organization (WHO) interprets the T-scores as follows: Above -1 Normal bone density Between -1 and -2.5 Osteopenia Equal to / or below -2.5 Osteoporosis As a practical clinical guideline, osteopenia may be graded as follows: Mild -1 through -1.5 Moderate -1.6 through -2.0 Severe -2.1 through -2.4 The Z-score is the number of standard deviations above or below age-matched controls. A Z-score of less than -1.5 would be considered abnormal. References: 1. NIH Osteoporosis and Related Bone Diseases www osteo.org 2. International Society for Clinical Densitometry www iscd.org 3. National Osteoporosis Foundation www nof.org Electronically Signed: Galdino Mcleod MD at 10:50 EST ,
== END | disposition home or self-care (01) ==
LOC: OPBI 09:52
PROVIDERS: PCP Nurse Practitioner Family; Referring Provider Nurse Practitioner Family; Visit Provider Nurse Practitioner Family
DX: Z12.31 Encounter for screening mammogram for malignant neoplasm of breast (principal); Z13.820 Encounter for screening for osteoporosis; M81.0 Age-related osteoporosis without current pathological fracture
CPT/HCPCS: 77063; 77067; 77080

== ENCOUNTER → 2023-05-06 | Outpatient (CLI) | payer MEDICARE, OTHER, SELFPAY ==
[2023-05-06 12:08] LABS: T4 Free Direct 0.98 ng/dL (0.76-1.46)
== END | disposition home or self-care (01) ==
LOC: LAB 09:36
PROVIDERS: PCP Nurse Practitioner Family; Referring Provider Nurse Practitioner Family; Visit Provider Nurse Practitioner Family
DX: E03.9 Hypothyroidism, unspecified (principal)
CPT/HCPCS: 36415; 84439; 84443

== ENCOUNTER 2023-05-19 07:30 | Outpatient (RCR) | payer MEDICARE, OTHER, SELFPAY | END 2023-05-28 23:59 | LOC: NS 07:30 | PROVIDERS: PCP Nurse Practitioner Family; Referring Provider Nurse Practitioner Family; Visit Provider Nurse Practitioner Family | DX: Z71.3 Dietary counseling and surveillance (principal); E11.9 Type 2 diabetes mellitus without complications | CPT/HCPCS: 97803 ==

== ENCOUNTER 2023-06-02 07:16 | Outpatient (RCR) | payer MEDICARE, OTHER, SELFPAY | END 2023-06-28 23:59 | LOC: NS 07:16 | PROVIDERS: PCP Nurse Practitioner Family; Referring Provider Nurse Practitioner Family; Visit Provider Nurse Practitioner Family | DX: Z71.3 Dietary counseling and surveillance (principal); E11.9 Type 2 diabetes mellitus without complications | CPT/HCPCS: 97803 ==

== ENCOUNTER → 2023-08-04 | Outpatient (CLI) | payer MEDICARE, OTHER, SELFPAY ==
--- NOTE | 2023-08-04 09:50 | RAD_ITS ---
STUDY: X-RAY - LEFT KNEE REASON FOR EXAM: Female, 63 years old. Pain. TECHNIQUE: 4 views of the left knee. COMPARISON: None. FINDINGS: Normal visualized distal femur. Normal visualized proximal tibia and fibula. Normal proximal tibiofibular articulation. There is no demonstrated fracture. There is severe degenerative arthrosis of the medial femorotibial compartment with severe joint space narrowing. There is mild degenerative arthrosis of the lateral femorotibial compartment. There is mild degenerative arthrosis of the patellofemoral articulation. There is no demonstrated joint effusion. The soft tissue structures are unremarkable. RAD/Knee 4 or More Views IMPRESSION: Tricompartment degenerative arthrosis, most severe in the medial femorotibial compartment. Electronically Signed: Bo Villalobos MD at 8:32 EDT ,
--- NOTE | 2023-08-04 09:50 | RAD_ITS ---
STUDY: X-RAY - LUMBAR SPINE REASON FOR EXAM: Female, 63 years old. Chronic low back pain. No known injury. TECHNIQUE: 4 view(s) of the lumbar spine were obtained including oblique views. COMPARISON: None FINDINGS: Normal lumbar lordosis. There is no substantial scoliosis. Grade 1 anterior listhesis of L4 on L5 without evidence of a spondylolysis. This most likely is secondary to facet joint osteoarthritis. Normal vertebral bodies and endplates. Mild degree of disc space narrowing at the L3-L4 and L4-L5 levels. There is mild degree of atherosclerotic calcification of the abdominal aorta without a demonstrated aneurysm. RAD/L/S Spine Min 4 Views IMPRESSION: Degenerative changes of the spine, as detailed above. Grade 1 anterior listhesis of L4 on L5 most likely secondary to facet joint osteoarthritis. Electronically Signed: Galdino Mcleod MD at 10:43 EDT ,
--- NOTE | 2023-08-04 09:50 | RAD_ITS ---
STUDY: X-RAY - RIGHT KNEE REASON FOR EXAM: Female, 63 years old. PAIN TECHNIQUE: 4 views of the right knee. COMPARISON: None. FINDINGS: Normal visualized distal femur. Normal visualized proximal tibia and fibula. Normal proximal tibiofibular articulation. There is no demonstrated fracture. There is severe degenerative arthrosis of the medial femorotibial compartment with severe joint space narrowing. There is mild degenerative arthrosis of the lateral femorotibial compartment. There is mild degenerative arthrosis of the patellofemoral articulation. There is no demonstrated joint effusion. The soft tissue structures are unremarkable. RAD/Knee 4 or More Views IMPRESSION: Tricompartment degenerative arthrosis, most severe in the medial femorotibial compartment. Electronically Signed: Bo Villalobos MD at 8:34 EDT ,
== END | disposition home or self-care (01) ==
LOC: MTRAD 09:49
PROVIDERS: PCP Nurse Practitioner Family; Referring Provider Nurse Practitioner Family; Visit Provider Nurse Practitioner Family
DX: M19.90 Unspecified osteoarthritis, unspecified site (principal); M54.9 Dorsalgia, unspecified; M25.561 Pain in right knee; M25.562 Pain in left knee
CPT/HCPCS: 72110; 73564

== ENCOUNTER → 2023-09-30 | Outpatient (CLI) | payer MEDICARE, OTHER, SELFPAY | END | disposition home or self-care (01) | LOC: BFHLAB 10:39 → LABSPEC 10:40 | PROVIDERS: PCP Nurse Practitioner Family; Referring Provider Nurse Practitioner Family; Visit Provider Nurse Practitioner Family | DX: N39.0 Urinary tract infection, site not specified (principal) | CPT/HCPCS: 87086; 87088 ==

== ENCOUNTER 2024-01-25 17:30 | Outpatient (RCR) | payer SELFPAY | END 2024-01-28 23:59 | LOC: NS 17:30 | PROVIDERS: PCP Nurse Practitioner Family | DX: Z71.3 Dietary counseling and surveillance (principal) ==

== ENCOUNTER 2024-02-01 15:52 | Outpatient (RCR) | payer SELFPAY | END 2024-02-27 23:59 | LOC: NS 15:52 | PROVIDERS: PCP Nurse Practitioner Family | DX: Z71.3 Dietary counseling and surveillance (principal) ==

== ENCOUNTER → 2024-02-04 | Outpatient (CLI) | payer MEDICARE, OTHER, SELFPAY ==
--- NOTE | 2024-02-04 06:11 | CT_ITS ---
CT RIGHT LOWER EXTREMITY WITH 3-D IMAGING CLINICAL INDICATION: KNEE PAIN, OSTEOARTHRITIS SUSPECTED TECHNIQUE: Axial CT images of the right lower extremity (including right hip, right knee, and right ankle) was performed without IV contrast material. Coronal and sagittal reformats were provided. The protocol utilizes one or more of the following dose reduction techniques: automated exposure control, adjustment of mA and/or kV according to patient size, and/or use of iterative reconstruction technique. RADIATION DOSAGE (If Supplied By Facility): CTDIvol = ( 18.93 ) mGy, DLP = ( 1187.97 ) mGycm COMPARISON: Right knee radiographs dated 08/04/2023. FINDINGS: Bones: Unremarkable right hip joint. There is tricompartment degenerative arthrosis of the right knee, most severe in the medial femorotibial compartment where there is severe joint space narrowing, marginal osteophyte formation, and subchondral sclerosis. Unremarkable right ankle. Osseous structures are intact without evidence of fracture or dislocation. No lytic or blastic osseous masses. Soft Tissues: There is a 7 x 5 x 3 mm ossified loose body in the intercondylar notch. There is a small right knee joint effusion. The deep soft tissue structures are unremarkable. There is subcutaneous soft tissue edema along the anterior aspect of the right knee. The superficial soft tissues are otherwise unremarkable without evidence of hematoma or foreign body. CT/Extremity Lower without Contra IMPRESSION: Tricompartment degenerative arthrosis of the right knee, most severe in the medial femorotibial compartment. 7 x 5 x 3 mm ossified loose body in the intercondylar notch. Small right knee joint effusion. Electronically Signed: Bo Villalobos MD at 8:11 EST ,
== END | disposition home or self-care (01) ==
PROVIDERS: PCP Nurse Practitioner Family; Referring Provider Specialist; Visit Provider Specialist
DX: M17.0 Bilateral primary osteoarthritis of knee (principal)
CPT/HCPCS: 73700

== ENCOUNTER 2024-02-22 07:21 | Observation (INO) | payer MEDICARE, OTHER, SELFPAY ==
--- NOTE | 2024-02-04 06:05 | EKG12_ITS ---
Test Reason : PREOP Blood Pressure : */* mmHG Vent. Rate : 87 BPM Atrial Rate : 87 BPM P-R Int : 162 ms QRS Dur : 82 ms QT Int : 366 ms P-R-T Axes : 61 3 44 degrees QTcB Int : 440 ms Normal sinus rhythm Normal ECG Confirmed by Chaim Elena ([id number]), commissioning editor ALICE WALDRON ([id number]) on 02/05/2024 8:19:54 AM Referred By: Oli Mancia Confirmed By: Chaim Elena
[2024-02-04 07:28] LABS: Absolute Lymphocyte Count 1.96 X10^3/uL (0.83-4.51); Absolute Neutrophil Count 3.1 X10^3/uL (2.0-7.7); Basophil# 0.05 X10^3/uL; Basophil% 0.9 % (0-1); Eosinophil# 0.13 X10^3/uL; Eosinophils% 2.3 % (0-5); Hematocrit 40.4 % (37-47); Hemoglobin 13.6 g/dL (12.0-15.0); Lymphocyte # 1.96 X10^3/ul (0.83-4.51); Lymphocyte % 35.2 % (19-41); Mean Corp Hgb Conc 33.7 g/dL (32-36); Mean Corpuscular Hgb 31.5 pg (27.0-32.0); Mean Corpuscular Volume 93.5 fL (81-99); Mean Platelet Vol. 9.5 fl (6.2-12.0); Monocyte# 0.32 X10^3/uL; Monocyte% 5.7 % (0-10); NRBC Flagged by Analyzer 0 % (0-5); Neutrophil # 3.08 X10^3/uL (2.7-7.7); Neutrophil % 55.4 % (47-70); Platelet Count 274 K/mm3 (150-450); RBC Distribution Width CV 12.2 % (11.6-14.6); RBC Distribution Width SD 42.1 fl (35.1-43.9); Red Blood Count 4.32 M/mm3 (4.2-5.4); White Blood Count 5.6 K/mm3 (4.4-11.0)
[2024-02-04 07:53] LABS: Albumin, Serum 3.7 g/dL (3.2-5.0); Anion Gap 5 (5-15); BUN 22 mg/dL (7-18); BUN/Creat Ratio 24.2 RATIO (10-20); Calcium,Total 9.5 mg/dL (8.5-10.1); Chloride 108 mmol/L (98-107); Creatinine, Serum 0.91 mg/dL (0.55-1.02); EST Glomerular Filtration Rate 66 mL/min (>60); Est Glom Filt Rate - Afr Amer 80 mL/min (>60); Glucose 98 mg/dL (74-106); Potassium 4.4 mmol/L (3.5-5.1); Sodium Level 140 mmol/L (136-145)
[2024-02-04 08:10] LABS: Magnesium 2.3 mg/dL (1.6-2.6)
[2024-02-04 12:49] LABS: Hemoglobin A1c 5.7 % (3.8-5.6)
[2024-02-22] VITALS (15 sets, daily range): BP systolic 101–127; BP diastolic 55–83; PULSE 77–94; RESP 11–20; TEMP 36.1–37.1; O2SAT 88–98; BMI 42.4
--- NOTE | 2024-02-22 09:16 | PRE.ANES_ITS ---
ASA Classification* ASA Classification ASA Classification: 3 Assessment & Plan Anesthesia* Anesthesia Assessment Anesthesia Assessment: Discussed sedation and/or anesthesia options, risks, benefits, and alternatives with patient/parents/legal guardian/POA. Questions invited. The patient/parents/legal guardian/POA seems to understand and agrees to proceed with anesthesia plan. Reviewed the physical assessment, medical history, allergy history and patient home medications list prior to surgery/procedure/anesthetic and documented any changes. Performed airway and anesthesia risk assessments. Anesthesia Type Anesthesia Type: Spinal and Block Anesthesia Focused Assessment* Airway Assessment Mouth opens: >3 cm Mallampati Score: II Focused Labs Anesthesia Preop lab: CBC WBC 5.6 K/mm3 (4.4-11.0) 02/04/24 06:06 RBC 4.32 M/mm3 (4.2-5.4) 02/04/24 06:06 Hgb 13.6 g/dL (12.0-15.0) 02/04/24 06:06 Hct 40.4 % (37-47) 02/04/24 06:06 Plt Count 274 K/mm3 (150-450) 02/04/24 06:06 CHEMISTRY Potassium 4.4 mmol/L (3.5-5.1) 02/04/24 06:06 Sodium 140 mmol/L (136-145) 02/04/24 06:06 Magnesium 2.3 mg/dL (1.6-2.6) 02/04/24 06:06 BUN 22 mg/dL (7-18) H 02/04/24 06:06 Creatinine 0.91 mg/dL (0.55-1.02) 02/04/24 06:06 Glucose 98 mg/dL (74-106) 02/04/24 06:06 TSH 5.280 uIU/mL (0.358-3.740) H 02/04/24 06:06 COAG PT 11.7 SECONDS (11.7-14.9) 08/28/22 15:14 Pre-Assessment Diagnosis/Proposed Procedure Planned Operative Procedure(s): (R) Total Knee Replacement Robotic Arm Assist Anesthesia History 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 When Was Last Pacemaker Check QUESTION #4 FULL TEXT: You/Your Family Experience fever (hyperthermia) with Anesthesia Last Oral Intake Last Oral intake: Last Oral Intake NPO since Meds taken in AM with sips of water? 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 - electric knife operator: PONV - electric knife operator Female Yes 02/01/24 08:38 HX of Motion Sickness No 02/01/24 08:38 HX of N/V After Surgery No 02/01/24 08:38 Non-Smoker Yes 02/01/24 08:38 Duration of Surgery greater Yes 02/01/24 08:38 than 60 minutes Number of Risk Factors 3 02/01/24 08:38 PONV Score Moderate Risk 02/01/24 08:38 Height & Weight Height & Weight: Anesthesia: Height & Weight Height 5 ft 2 in 06/02/23 07:30 Respiratory Assessment Respiratory Assessment - electric knife operator: Respiratory Tract Infection Hx - electric knife operator Hx Respiratory Tract Infection No 02/01/24 08:38 STOP Sleep Apnea STOP Sleep Apnea - electric knife operator: STOP Sleep Apnea - electric knife operator Hx Hypertension No 02/01/24 08:38 Hx Sleep Apnea No 02/01/24 08:38 CPAP BIPAP Do you snore loudly (louder No 02/01/24 08:38 than talking or can be heard Do you often feel tired/ No 02/01/24 08:38 fatigued/ sleepy during daytime? Has anyone observed you stop No 02/01/24 08:38 breathing during sleep? STOP Results Negative 02/01/24 08:38 QUESTION #5 FULL TEXT : Do you snore loudly (louder than talking or can be heard through closed doors)? 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 Specify any problems Hx of Preganancy in last 3 No 02/01/24 08:38 Months Nurse Filling Out Transfusion VCHRISTIN 02/01/24 08:38 & Questions: Date: 02/01/24 02/01/24 08:38 Time: 08:39 02/01/24 08:38 Patient unable to answer at this time (ie. confused, unrespo /Reproduction History /Reproductive History - electric knife operator: /Reproductive Hx- electric knife operator Hx Now Gestational Age (in weeks): EDC: Hx Hx Para Hx Section SAB Active Medications Active Medications: Current Medications Generic Name Dose Route Start Last Admin Trade Name Freq PRN Reason Stop Dose Admin Acetaminophen 1,000 mg 02/22/24 12:15 Acetaminophen 500 Mg Tablet PO 02/22/24 12:16 X1 ONE Acetaminophen 1,000 mg 02/22/24 14:00 Acetaminophen 500 Mg Tablet PO Q8 [facility] Aspirin 81 mg 02/22/24 10:00 Aspirin 81 Mg Tab.Chew PO BID [facility] Celecoxib 400 mg 02/22/24 12:15 Celecoxib 200 Mg Capsule PO 02/22/24 12:16 X1 ONE Sodium Chloride 77.4 ml/ 0 ml 02/22/24 12:15 Ropivacaine 200 mg/ OPERA.SITE 02/22/24 12:16 Epinephrine HCl 0.6 mg/ X1 ONE Ketorolac Tromethamine 30 mg/ Morphine Sulfate 5 mg Dexamethasone Sodium Phosphate 10 mg 02/22/24 12:15 Dexamethasone 10 Mg/Ml Vial IV 02/22/24 12:16 X1 ONE Doxycycline Monohydrate 100 mg 02/23/24 13:00 Doxycycline 100 Mg Capsule PO BID [facility] Enteral Nutritional Formula 237 ml 02/22/24 08:00 Ensure Surgery 237 Ml Liquid PO TIDCM [facility] Famotidine 20 mg 02/22/24 10:00 Famotidine 20 Mg Tablet PO DAILY [facility] Gabapentin 600 mg 02/22/24 12:15 Gabapentin 600 Mg Tablet PO 02/22/24 12:16 X1 ONE Lactated Ringer's 1,000 mls @ 999 mls/hr 02/22/24 12:15 IV 02/22/24 13:15 .Q1H1M KWAME Tranexamic Acid 1,000 mg/ 110 mls @ 660 mls/hr 02/22/24 12:15 Sodium Chloride IV 02/22/24 12:24 X1 ONE Tranexamic Acid 1,000 mg/ 110 mls @ 660 mls/hr 02/22/24 12:15 Sodium Chloride IV 02/22/24 12:24 X1 ONE Lactated Ringer's 1,000 mls @ 999 mls/hr 02/22/24 12:15 IV 02/22/24 13:15 .Q1H1M KWAME Cefazolin Sodium 2 gm/ N/A 20 mls @ 400 mls/hr 02/22/24 12:15 IV 02/22/24 12:17 PREOP ONE Vancomycin HCl 1,750 mg/ 535 mls @ 250 mls/hr 02/22/24 12:15 Sodium Chloride IV 02/22/24 14:23 PREOP ONE Cefazolin Sodium 1 gm in 50 mls @ 150 mls/hr 02/22/24 14:00 IV 02/22/24 22:19 Q8 [facility] Insulin Human Lispro 1 - 6 unit 02/22/24 12:15 Insulin Lispro 100 Unit/Ml Insuln.Pen SC 02/22/24 22:00 Q4H PRN PRN BG>/= 180, SEE PROTOCOL Protocol Ketorolac Tromethamine 15 mg 02/22/24 07:20 Ketorolac 15 Mg/Ml Vial IV 02/24/24 07:25 Q6H PRN PRN Pain Score 1-5 Lisinopril 20 mg 02/22/24 10:00 Lisinopril 20 Mg Tablet PO DAILY [facility] Protocol Meloxicam 7.5 mg 02/24/24 10:00 Meloxicam 7.5 Mg Tablet PO BID [facility] Metformin HCl 1,000 mg 02/22/24 21:00 Metformin (Xr) 500 Mg Tablet PO QPM [facility] Morphine Sulfate 2 - 4 mg 02/22/24 07:20 Morphine 2 Mg/Ml Syringe IV Q2H PRN PRN Pain Score 6-10 Non-Formulary Medication 25 mcg 02/22/24 10:00 Cholecalciferol (Vitamin D3) PO DAILY [facility] Non-Formulary Medication 37.5 mg 02/22/24 10:00 Phentermine PO DAILY [facility] Ondansetron HCl 4 mg 02/22/24 07:20 Ondansetron 4 Mg/2 Ml Vial IV Q8H PRN PRN NAUSEA Oxycodone HCl 5 - 10 mg 02/22/24 07:20 Oxycodone 5 Mg Tablet PO Q4H PRN PRN Pain Score 4-10 Promethazine HCl 12.5 mg 02/22/24 07:20 Promethazine 25 Mg/Ml Syringe IM Q6H PRN PRN NAUSEA/VOMITING Protocol Senna/Docusate Sodium 2 tablet 02/22/24 10:00 Senna/Docusate Sodium 1 Tablet PO BID [facility] PFSH Medical History MRSA (methicillin resistant staph aureus) culture positive Wears glasses Post-menopausal Thyroid disease Diabetes Arthritis Fatty liver High cholesterol Sleep apnea Shortness of breath on exertion Leg cramps Hypertension History of stress test History of echocardiogram Cardiology follow-up encounter Hypothyroidism Non-smoker Congestive heart failure (CHF) Abnormal stress test Type 2 diabetes mellitus without complication Back pain Screening for intestinal cancer Obesity Varicose veins of bilateral lower extremities with other complications Osteoarthritis Home Medications ?Medication ?Instructions ?Recorded ?Last Taken ?Type cholecalciferol (vitamin D3) 50 25 mcg PO DAILY supplement 07/23/22 Unknown History mcg (2,000 unit) tablet metformin 500 mg tablet,extended 1,000 mg PO QPM diabetes 12/25/22 02/28/23 History release 24 hr lisinopril 20 mg tablet 20 mg PO DAILY bp 02/01/24 Unknown History phentermine 15 mg capsule 37.5 mg PO DAILY weight loss 02/01/24 Unknown History Allergy/AdvReac Type Severity Reaction Status Date / Time erythromycin base AdvReac Severe GI Upset Verified 02/01/24 08:23 atorvastatin AdvReac Intermediate Extreme Verified 02/01/24 08:23 dizziness, Nausea, cramping amoxicillin (From Augmentin) AdvReac Unknown GI Upset Verified 02/01/24 08:23 clavulanic acid (From AdvReac Unknown GI Upset Verified 02/01/24 08:23 Augmentin) Family History Mother CAD (coronary artery disease) Grandfather Congestive heart failure Grandmother CVA (cerebral vascular accident) Father Colon cancer Brother Colon cancer Surgical History History of cardiac catheterization History of hysterectomy History of tubal ligation History of tonsillectomy History of adenoidectomy History of liver biopsy History of cholecystectomy History of section Social History Smoking Status: Never smoker alcohol intake: never substance use type: does not use caffeine: No Review of Systems (Anesthesia) ROS Narrative System reviewed and no additional complaints, except as documented.
[2024-02-22] MEDS: Lactated Ringers 1,000 ML 999 ML IV (09:42)
[2024-02-22] MEDS: Vancomycin HCl 1,750 MG in 0.9% Normal Saline (500mL Bag) 500 ML 250 MG IV (09:43)
[2024-02-22] MEDS: Gabapentin 600 MG Tablet PO (10:04)
[2024-02-22] MEDS: Celecoxib 200 MG Capsule 400 MG PO (10:04)
[2024-02-22] MEDS: Acetaminophen 500 MG Tablet 1000 MG PO ×2 (10:04→18:26)
[2024-02-22] MEDS: Magnesium 1 GM over 15 mins IV (10:05)
[2024-02-22 11:08] LABS: Bedside Glucose 100 mg/dL (74-106)
--- NOTE | 2024-02-22 11:15 | KNEE_PTH ---
PATIENT: LEONEL HAMLIN LOC: [facility] U#:[id number] AGE/SX: 63/F ROOM: ND317 RE02/22/[address]: Dr. Oli Mancia MD : 1960 BED: 1 DIS: 02/23/2024 SPEC #: [id number] RECD: 02/23/24 08:24 STATUS: SANTOS GARCIA #: [id number] MIGUEL: 02/22/24 11:[address]: Oli Mancia DEPT: SURGICAL PATHOLOGY RECD BY: Flower Harris ENTERED: 02/23/24 09:42 SP TYPE: TOTAL KNEE OTHR DR: MD Dr. Travis Gonzalez MD Rachel Edgar, REAL ESTATE ECONOMIST-C Tissues: Knee, NOS Procedures: Decalcification bone/plaque Surgery Specimen Level IV HEADER OPERATION: Total knee replacement robotic arm assist PRE-OP DIAGNOSIS: Grade IV osteoarthritis right knee TISSUE SUBMITTED: Bone and tissue right knee MICROSCOPIC DIAGNOSIS Bone and tissue of right knee, total knee resection: Severe degenerative joint disease. Mild synovial hyperplasia. AM: 03/02/2024 MICROSCOPIC DESCRIPTION Slides are reviewed. GROSS DESCRIPTION Received is one container designated bone and soft tissue right knee. The specimen consists of multiple fragments of mondragon-yellow bone measuring in aggregate 20.0 x 12.0 x 2.0 cm. Also in the specimen container are multiple fragments of yellow-white soft tissue measuring in aggregate 5.0 x 3.0 x 1.0 cm. A number of bony fragments contain articular surfaces consistent with tibial plateau and femoral condyle and displaying prominent osteophyte formation, eburnation and bone erosion. Honing Machine Set Up Operator sections are submitted in two cassettes as follows: 1 - soft tissue, 2 - bone after decalcification. / AM.mr 02/23/2024 TC:5 CPT: 34910, 12278
[2024-02-22] MEDS: Cefazolin 2 GM in Syringe IV (11:51)
[2024-02-22] MEDS: dexAMETHasone 10 MG/ML Vial IV (12:06)
[2024-02-22] MEDS: TXA 1000mg in NS100 100ml (IVPB at Incision) 660 MG IV (12:07)
[2024-02-22] MEDS: TXA 1000mg in NS100 100ml (IVPB at Closure) 660 MG IV (12:52)
--- NOTE | 2024-02-22 13:02 | PCM.OPRPT ---
Operative Report (Standard) Operative Information Surgery/Procedure Performed: Minimally invasive right robotic assisted total knee replacement Surgeon: Oli Mancia Date of Procedure: 02/22/24 Procedure Start Time: 12:15 Procedure Stop Time: 13:43 Pre-Operative Diagnosis: Right knee primary osteoarthritis Post-Operative Diagnosis: right knee primary osteoarthritis Select all DRAINS/GRAFTS/IMPLANTS that apply: Prosthetic device Prosthetic device details: See body of operative report Type of Anesthesia: Spinal Special Medications: 2 g Ancef, 1 g TXA at incision, 1 g TXA closure, 10 mg Decadron, joint cocktail (5 mg Duramorph, 30 mL of 0.5% Ropivicaine, 1000 units of epinephrine, 30 mg of Toradol) Estimated Blood Loss: 100 Fluids Replaced: 1000 mL crystalloid Specimen collected: Yes Description of specimen(s) removed: Bony cuts Description of surgery: Implants used: 1. Maribeth size 3 triathlon cruciate retaining distal femoral press-fit component 2. Maribeth size 3 press-fit tritanium tibial baseplate 3. Baltic X3 9 mm CS polyethylene 4. Maribeth X3 29 mm asymmetric patella Brief history operative indications: 63-year-old female with history of right knee osteoarthritis with radiographic findings with loss of joint space, osteophyte formation and subchondral sclerosis. Failed conservative measures as mentioned in the H&P. Discussion of total knee arthroplasty as well as risk and benefits were discussed the patient including but not limited to blood loss, DVTs, PEs, neurovascular damage, general risk of anesthesia including loss of life, and stiffness or instability were discussed with patient. Patient demonstrated understanding and was able to sign informed consent. Procedure: On the date of procedure patient's right lower extremity was marked in the preoperative area. The patient was then taken back to the operating room where the patient was placed on the table in the supine position. All bony prominences were identified a well-padded. Anesthesia assumed control of the C-spine and airway and remained controlled throughout the remainder of the procedure. A tourniquet was placed on the right upper thigh and the leg was prepped in a sterile fashion. The surgeon then scrubbed at this time .Upon reentering the room right lower extremity was draped in a standard orthopedic fashion. A timeout was then called and everyone agreed upon the side, the site, the procedure to be performed, patient's identity and antibiotics given. Esmarch bandage was used to exsanguinate the extremity and the tourniquet was placed up to 250 mmHg with the knee in flexion. A midline skin incision was made and sharp dissection was taken down through skin subcutaneous tissue and fat. The standard medial parapatellar incision was made and the patella was subluxed laterally. An Appropriate deep MCL release was done and the fat pad was resected. Our attention was then directed to the patella. The patella was everted and a flat resection was made. The knee was then flexed up in 2 femoral pins were placed inside the incision and 2 tibial pins were placed outside the incision in the medial tibia bicortically. Once this was completed the 2 checkpoints in the femur and tibia were placed. Knee was then flexed up and the bony landmarks were registered. Once this was completed knee was taken through range of motion and manually stressed allowing us to a plan for an appropriate tibial cut. The robotic arm was brought into the field sterilely and checkpoint and saw were registered. Based on the patient's deformity the tibial cut was made in 3 degrees varus. At this time the tensioner was then placed in the joint and ligament tension was checked at 90 degrees and full extension. Based on the patient's ligamentous tension appropriate adjustments were made to the operative plan and ligament releases were done. Once we were happy with our operative plan with balanced flexion and extension gaps our attention was directed to the femur. The robot was brought into the field sterilely and registered. Posterior condylar cuts, anterior chamfer cuts and anterior cuts were appropriately made for a size 3 femur. When these were completed the saws were switched out in the distal femoral and posterior chamfer cuts were made. Protecting the soft tissue throughout this time. A size 3 tibial base plate was selected. the knee was flexed to 90 degrees and the soft tissues and posterior osteophytes were removed from the joint. 40 cc of the periarticular injection was injected into the posterior medial corner of the joint. The appropriate trials were then placed on the femur and tibia. A trial polyethylene was trialed to ensure proper balancing and stability of the knee. The appropriate tibial internal rotation was then marked with a bovie. Our attention was then directed to the patella. The lug holes were drilled and the patella trial was placed. Patellar tracking was checked and deemed appropriate. Once we were happy lug holes were drilled for the femur and trial components were removed. The tibia was subluxed and pinned into place and the keel was punched and drilled appropriately. Final components were verified and opened. The wound was copiously irrigated with normal saline. When the cement was ready the components were impacted into place starting with the tibia then the femur, finally the patella was compressed into place. The trial poly component was placed and the knee was placed in full extension. Once the the implants were secured, the tracking, alignment and balance were verified and a size 9 mm CS polyethylene component was placed. Once the final components were placed a 3-minute dilute Betadine lavage was performed followed by an Irrisept lavage was performed and the wound was copiously irrigated with normal saline solution and the periarticular injection was given. The wound was closed in a layer bahena fashion using #1 vicryl interrupted sutures for the arthrotomy, 2-0 interrupted Vicryl suture for the subcuticular layer and christina for final skin closure. A sterile compressive dressing was then placed. The patient was then awakened from anesthesia, transferred to the rsaint ansgar and transferred to the PACU for recovery. Post op plan DVT ppx: ASA 81mg BID, thigh high compression stockings Follow up: in office in 2 weeks for wound check PT: to start POD #0 at hospital, outpatient PT should be arranged. Patient replaced on extended postop oral antibiotics postoperatively due to positive MRSA screening. Doxycycline 100 mg p.o. twice daily for 2 weeks. My physician assistant drafter was a vital part of this case, they was important because there was not another skilled set of hands available to their training and aptitude needed for safe and appropriate completion of this case. They were important in appropriate retraction during the case, and protection of soft tissues during bony cuts. In particular the experience and skill of this assistant drafter made for safe retraction and exposure during implantation of medical implants without damage to vital soft tissues or structures. His intimate knowledge of the case and my steps aided in safe and expedient completion of the procedure as well as appropriate position of the leg during the case. He was also vital in assisting with closure under my direct supervision. Due to the complexity of this case robotic arm was used to assist in the surgery to improve accuracy and clinical outcomes. 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
[2024-02-22] MEDS: JPS (Morphine 10mg/ml) OPERA.SITE (13:18)
--- NOTE | 2024-02-22 14:14 | PCM.POST.ANE ---
Anesthesia: Postop Eval I Current Vital Signs Temperature: 97 F Pulse Rate: 88 Blood Pressure: 110/69 Respiratory Rate: 20 Pulse Ox: 98 Assessment Airway patent: Yes Spontaneous unlabored respirations: Yes nausea: No Vomiting: No Anesthesia Complication: No Fluid Hydration Crystalloid volume administer (ml): 1,300 Total IV fluid infused: 1,300 Progress Note Anesthesia document: Postop Eval 1 completed: Yes
--- NOTE | 2024-02-22 14:15 | RAD_ITS ---
HISTORY post op -- AP and Lateral xray of operative knee in PACU. TECHNIQUE: XR Knee 1 or 2 Views. COMPARISON: None. FINDINGS: BONES : No acute fracture identified. No abnormal periprosthetic lucency seen. JOINTS: Right knee arthroplasty in place without dislocation. SOFT TISSUES: Expected postoperative air and edema with overlying skin christina. RAD/Knee 1 or 2 Views IMPRESSION: Satisfactory postoperative alignment of right knee arthroplasty. Electronically Signed: Micaela oJse MD at 15:27 EST ,
[2024-02-22] MEDS: Lactated Ringers 1,000 ML 125 ML IV (14:56)
--- NOTE | 2024-02-22 15:58 | POSTOPAN2_ITS ---
Anesthesia Postop Eval I Sum Postop Eval Completion status Anesthesia document: Postop Eval 1 completed: Yes Anesthesia Postop Eval I Summary Anesthesia Postop Eval I Summary: Anesthesia Postop Eval I: Assessment Summary Airway patent Yes 02/22/24 14:14 FACILITY SERVICE [email or web address] Spontaneous unlabored Yes 02/22/24 14:14 FACILITY SERVICE MANAGER.CSIR respirations Mental status nausea No 02/22/24 14:14 FACILITY SERVICE MANAGER.CSIR Vomiting No 02/22/24 14:14 FACILITY SERVICE MANAGER.CSIR Anesthesia Postop Eval I: Fluid Summary Crystalloid volume administer 1,300 02/22/24 14:14 FACILITY SERVICE MANAGER.CSIR (ml) Colloids volume administered ( ml) Blood Product volume administered (ml) Total IV fluid infused 1,300 02/22/24 14:14 FACILITY SERVICE MANAGER.CSIR Anesthesia Postop Eval I: Summary Notes Anesthesia Complication No 02/22/24 14:14 FACILITY SERVICE MANAGER.CSIR Anesthesia Complication Comment: Post-operative progress note Anesthesia: Postop Eval II Evaluation Mental status: Awake Pain Level: 1 nausea: No Vomiting: No
--- NOTE | 2024-02-22 15:58 | PCM.POSTANE2 ---
Anesthesia Postop Eval I Sum Postop Eval Completion status Anesthesia document: Postop Eval 1 completed: Yes Anesthesia Postop Eval I Summary Anesthesia Postop Eval I Summary: Anesthesia Postop Eval I: Assessment Summary Airway patent Yes 02/22/24 14:14 TAPE [email or web address] Spontaneous unlabored Yes 02/22/24 14:14 TAPE [email or web address].CSIR respirations Mental status nausea No 02/22/24 14:14 TAPE STRINGER.CSIR Vomiting No 02/22/24 14:14 TAPE [email or web address].CSIR Anesthesia Postop Eval I: Fluid Summary Crystalloid volume administer 1,300 02/22/24 14:14 TAPE [email or web address].CSIR (ml) Colloids volume administered ( ml) Blood Product volume administered (ml) Total IV fluid infused 1,300 02/22/24 14:14 TAPE [email or web address].CSIR Anesthesia Postop Eval I: Summary Notes Anesthesia Complication No 02/22/24 14:14 TAPE [email or web address].CSIR Anesthesia Complication Comment: Post-operative progress note Anesthesia: Postop Eval II Evaluation Mental status: Awake Pain Level: 1 nausea: No Vomiting: No
--- NOTE | 2024-02-22 16:37 | PCM.PN.HOSP ---
Reason for Visit Reason for Visit: Diagnoses Encounter for other preprocedural examination (02/22/24) Subjective Subjective Patient with perioperatively no acute events or complaints. She notes pain is currently controlled and notes sensation is returning and able to move her lower extremity. She did report some mild nausea but this is abated. She does states she has had some constipation which unfortunately is chronic and is requesting a dose of MiraLAX this evening. Patient denies fevers, chills, emesis, abdominal pain, chest pain or dyspnea. Objective Data Objective Data Vital Signs: Vital Signs Temp Pulse Resp BP Pulse Ox O2 Del Method O2 Flow Rate 97.4 F L 93 16 114/78 93 Room Air 4 02/22/24 15:15 02/22/24 16:05 02/22/24 16:05 02/22/24 16:05 02/22/24 16:05 02/22/24 16:05 02/22/24 15:00 Oxygen Flow Rate (L/min) 4 Oxygen Delivery Method Room Air Weight: 232 lb 2.348 oz Body Mass Index (BMI) 42.4 Intake & Output: Intake and Output for Last 24 Hours 02/20/24 02/21/24 02/22/24 23:59 23:59 23:59 Intake Total 1877 / 1877 Balance 1877 / 1877 Lab / Micro Data 02/04/24 06:06 02/04/24 06:06 Labs: Laboratory Results - last 24 hr 02/22/24 09:51: POC Glucose 100 Micro: Microbiology 02/04/24 06:06 Swab (Method) Nasal Screen MRSA/MSSA - Final Radiography Diagnostic Testing: Radiology Impression Knee X-Ray 02/22/24 14:15 IMPRESSION: Satisfactory postoperative alignment of right knee arthroplasty. Electronically Signed: Micaela Jose MD at 15:27 EST , Physical Exam Narrative Physical Examination: General: Awake, alert, oriented x 3 and cooperative, seated upright in OR area ACU bed, no acute distress, denies any current pain. Skin: Normal color, normal turgor, no icterus, no cyanosis except for status post recent right total knee replacement with dressing in place with no drainage. HEENT: AT/NC, EOMI, PERRLA, MMM. Lungs: Mildly diminished, greater bases, appropriate effort, no rales, ronchi or wheezing. Heart: Regular rate and rhythm; no gallop, rub audible. Abdomen: Soft, NTTP, morbidly obese, hyperactive BS, no obvious distention however habitus makes evaluation difficult. Extremities: No cyanosis, no marked clubbing, mild ankle bilateral nonpitting edema, status post recent right total knee replacement with dressing in place with no drainage. Neurological: Patient awake, alert, oriented as noted, cognitive function intact; pupils equally reactive to light and accommodation, cranial nerves gross normal, moving all 4 extremities although expected limitation right knee given recent right total knee replacement, strength moderately globally decreased. Psychiatric: Affect appears normal, no acute evidence of depressive or anxiety feelings. Assessment & Plan Assessment/Plan (1) Osteoarthritis: PLAN: Plan The patient is a 63 y/o F w/ PMHx: Morbid obesity, Hypoythyroidism, HTN, HLD, Diabetes mellitus type II, ERASMO who presents to the [facility] on 02/22/[address] Segovia secondary ongoing persistent right knee primary osteoarthritis despite outpatient conservative interventions attempts for right total knee replacement. #1. Severe Osteoarthritis, right knee: Failed conservative therapies and treatments, admitted per Dr. Hart, s/p 02/22/24 minimally invasive right robotic assisted total knee replacement, post-operative pain management, bowel regimen, DVT Prophylaxis, PT/OT/CM per Orthopedic surgery discretion. #2. Diabetes mellitus type II: Recommend holding metformin temporarily, may resume upon discharge, maintain on ADA diet, accu checks w/ ISS. #3. Hypertension: Continue home regimen including lisinopril, PRN hydralazine. #4. Hyperlipidemia: Noted statin intolerance, encourage continued outpatient follow-up. #5. Hypothyroidism: Wilkening patient home levothyroxine regimen. #6. Morbid Obesity: Weight loss and lifestyle changes encouraged. Holding phentermine #7. GERD: We will continue patient on famotidine regimen. #8. ERASMO: PAP therapy if utilizes/amenable. #9. DVT prophylaxis: SCDs, chemoprophylaxis per surgery discretion given recent OR. Charges/Coding Visit Charges Inpatient E&M: 70435 Subs Hosp L3
[2024-02-22 17:09] LABS: Bedside Glucose 149 mg/dL (74-106)
[2024-02-22] MEDS: Cefazolin 1 GM/50 ML BAG IV (19:57)
[2024-02-22] MEDS: 0.9% Saline Lock 10 ML Syringe IV (19:58)
--- NOTE | 2024-02-22 20:33 | CPS ---
pt does not use home cpap and does not want hospitals
[2024-02-22] MEDS: Senna/Docusate Sodium 1 Tablet 2 TABLET PO (21:38)
[2024-02-22] MEDS: Aspirin 81 MG TAB.CHEW PO (21:39)
[2024-02-22] MEDS: metFORMIN (XR) 500 MG Tablet 1000 MG PO (21:42)
[2024-02-22 22:04] LABS: Bedside Glucose 140 mg/dL (74-106)
[2024-02-23 00:45] VITALS: BP 112/69; PULSE 75; RESP 16; TEMP 36.4; O2SAT 93
[2024-02-23 04:41] VITALS: BP 105/72; PULSE 78; RESP 18; TEMP 36.6; O2SAT 93
[2024-02-23] MEDS: Cefazolin 1 GM/50 ML BAG IV (04:45)
[2024-02-23] MEDS: Acetaminophen 500 MG Tablet 1000 MG PO (04:45)
[2024-02-23] MEDS: Levothyroxine 25 MCG TABLET PO (04:45)
[2024-02-23 06:32] LABS: Hematocrit 34.8 % (37-47); Hemoglobin 11.4 g/dL (12.0-15.0); Mean Corp Hgb Conc 32.8 g/dL (32-36); Mean Corpuscular Hgb 30.9 pg (27.0-32.0); Mean Corpuscular Volume 94.3 fL (81-99); Mean Platelet Vol. 9.3 fl (6.2-12.0); Platelet Count 229 K/mm3 (150-450); RBC Distribution Width CV 11.9 % (11.6-14.6); RBC Distribution Width SD 41.1 fl (35.1-43.9); Red Blood Count 3.69 M/mm3 (4.2-5.4); White Blood Count 10.5 K/mm3 (4.4-11.0)
[2024-02-23 07:01] LABS: Anion Gap 6 (5-15); BUN 21 mg/dL (7-18); BUN/Creat Ratio 21.8 RATIO (10-20); Chloride 106 mmol/L (98-107); Creatinine, Serum 0.96 mg/dL (0.55-1.02); EST Glomerular Filtration Rate 62 mL/min (>60); Est Glom Filt Rate - Afr Amer 75 mL/min (>60); Estimated Creatinine Clearance 66.57 ml/min; Glucose 114 mg/dL (74-106); Potassium 4.6 mmol/L (3.5-5.1); Sodium Level 138 mmol/L (136-145)
[2024-02-23 07:17] LABS: Bedside Glucose 91 mg/dL (74-106)
--- NOTE | 2024-02-23 07:31 | PN.ORTHO_ITS ---
Subjective Subjective The patient was sitting in bed side chair upon examination. Patient denies any chest pain, shortness of breath, dizziness, lightheadedness, nausea or vomiting, or calf pain. Pain is controlled on medications. No adverse overnight events. Patient overall is doing well this morning. I do feel the block is still providing pain relief. Patient did advise me that she has an allergy to meloxicam in which it makes her loopy. She has tolerated Aleve at home. Objective Data Objective Data Vital Signs: Vital Signs Temp Pulse Resp BP Pulse Ox O2 Del Method O2 Flow Rate 97.9 F 78 18 105/72 93 Room Air 4 02/23/24 04:41 02/23/24 04:41 02/23/24 04:41 02/23/24 04:41 02/23/24 04:41 02/23/24 04:41 02/22/24 15:00 Oxygen Flow Rate (L/min) 4 Oxygen Delivery Method Room Air Weight: 105.3 kg Body Mass Index (BMI) 42.4 Intake & Output: Intake and Output for Last 24 Hours 02/21/24 02/22/24 02/23/24 23:59 23:59 23:59 Intake Total 2927 / 2927 850 / 850 Balance 2927 / 2927 850 / 850 Lab / Micro Data 02/23/24 05:58 02/23/24 05:58 Labs: Laboratory Results - last 24 hr 02/22/24 09:51: POC Glucose 100 02/22/24 16:49: POC Glucose 149 H 02/22/24 21:37: POC Glucose 140 H 02/23/24 05:58: WBC 10.5, RBC 3.69 L, Hgb 11.4 L, Hct 34.8 L, MCV 94.3, MCH 30.9, MCHC 32.8, RDW Std Deviation 41.1, RDW Coeff of Ramesh 11.9, Plt Count 229, MPV 9.3, Sodium 138, Potassium 4.6, Chloride 106, Carbon Dioxide 25.0, Anion Gap 6, BUN 21 H, Creatinine 0.96, Estim Creat Clear Calc 66.57, Est GFR (MDRD) Af Amer 75, Est GFR (MDRD) Non-Af 62, BUN/Creatinine Ratio 21.8 H, Glucose 114 H, Calcium 9.0 02/23/24 06:39: POC Glucose 91 Micro: Microbiology 02/04/24 06:06 Swab (Method) Nasal Screen MRSA/MSSA - Final Radiography Diagnostic Testing: Radiology Impression Knee X-Ray 02/22/24 14:15 IMPRESSION: Satisfactory postoperative alignment of right knee arthroplasty. Electronically Signed: Miceala Jose MD at 15:27 EST Reading Location ID and State: [facility] / [place] Tel , Service support , Physical Exam Narrative Vital signs stable and afebrile. SCDs and JOSE hose are in place bilaterally Patient is able to plantarflex and dorsiflex actively. Sensation is intact to light touch to saphenous, sural, superficial and deep peroneal, and tibial distribution. Main Mepilex dressing clean dry and intact, no drainage from the distal pin site dressing Negative Homans bilaterally, negative signs and symptoms of DVT. Const alert, oriented x3 and no apparent distress Assessment & Plan Assessment/Plan (1) Status post total right knee replacement: PLAN: 1. S/P robotic assisted right total knee arthroplasty POD #1 2. Continue Pain Medications: Tylenol and oxycodone. Meloxicam was discontinued due to her allergy. I did advise the patient that she can use [id number] Aleve 1-2 tablets twice daily with food. She has tolerated this medication in the past. I did advise her if she has any stomach irritation she should stop the Aleve. Patient voiced understanding agreement with treatment plan. 3. DVT Prophylaxis: Take 81 mg aspirin twice daily for 4 weeks postoperatively for DVT prophylaxis. Patient denies past history of DVT or pulmonary embolism. 4. PT/OT: Weightbearing as tolerated with walker 5. H & H: 11.4/34.8, asymptomatic. Labs have been reviewed and stable 6. Encouraged Incentive Spirometry 7. Patient is aware of postoperative constipation that can occur from 1-3 days postoperatively. Will continue with senna 2 tablets twice daily until first bowel movement. Patient was advised if not having a bowel movement after day 3 she is to contact orthopedics so appropriate change can be made. Patient voiced understanding. 8. Continue postoperative medical treatment per medicine 9. Disposition: Plan will be for probable discharge home this afternoon as long as patient remains medically stable, tolerates therapy, and pain is adequately controlled. Patient would like her medications E scribed to [facility] in [facility]. She has outpatient physical therapy established. She will follow-up per postoperative instructions. Upon discharge she will contact our office with any concerns or questions. I did advise the patient that we are close on and Thursday due to the holiday. She will have the ability to talk with the on-call physician if there are any complications postoperatively. She did voiced understanding agreement with treatment plan. I did go over postoperative course of treatment and goals with regards to therapy and pain. She voiced understanding and agreement. OARRS report was attempted however the system is currently down This dictation was created using voice recognition software. Phonetic and/or grammatical errors may exist.
--- NOTE | 2024-02-23 07:36 | DCINST_ITS ---
Discharge Instructions Diet Discharge Diet: No restrictions DC O2, CPAP, BIPAP needs Additional Home O2 Discharge instructions: No Dressing / Incision Discharge Activity: May Not Drive (No driving for 6 weeks postoperatively. Must also be off all narcotics and able to walk 100 feet without the use of cane or walker.) May shower in (days): 1 (Please turn dressing away from water. Okay to get wet as long as dressing is intact to skin.) Ice area for (Minutes): 20 (Every 1-2 hours while awake. Please place barrier between the skin and ice pack.) Weight Bearing Status: Weight bearing as tolerated Keep extremity elevated above heart level: Operative Extremity Dressing / Incision Call your doctor if your incision/area has: Continuous Slow Oozing, Sudden Increased Bleeding, Increased Pain/ Swelling, Increased Redness and Foul Smelling Discharge Call your doctor if you observe: Fever of 101 or Higher, Coldness, Increased Pain, Numbness or Tingling, Change in Color, Shortness of breath, Chest pain, Calf discomfort and Uncontrolled pain Remove Dressing in: 4 days (Okay to remove dressing on February 27, 2024) Additional Dressing/Incision Instructions:: Follow [facility] Post-op Instructions. Once postoperative dressing has been removed only use gentle soap and water over the incision. Do not use any ointments, Neosporin, salves, alcohol pads over the incision for 6 weeks postoperatively. Do not submerge underwater for 6 weeks postoperatively. Pain medications: Use extra strength Tylenol 500 mg 2 tablets 3 times daily. Also use Aleve 220 mg 1-2 tablets every 12 hours with food. Then supplement with oxycodone for breakthrough pain as needed Continue with JOSE hose/elastic stockings for 2 weeks postoperatively. May remove at nighttime but needs to be placed back on the leg during the day. Do NOT use alcohol with narcotic pain medication. Do NOT make important decisions while taking narcotic medication. If you have problems with taking your medication (rash, itching, nausea, etc.) call the office at once. Follow Up Care Test Results: Test results from this visit will be discussed in further detail at your follow- up appointment, if applicable. Discharge Plan Admission Attending Provider: Oli Mancia Primary Care Provider: Stefany Mayorga Consulting Providers: Perico Ortiz; Travis Martin Instructions Print Language: Malian Discharge Orders/Prescriptions Prescriptions: New acetaminophen 500 mg Tablet 1,000 mg PO Q8 14 Days Qty: 84 0RF Rx Instructions: Do not take more than 3000 mg Tylenol in a 24-hour period. famotidine 20 mg Tablet 20 mg PO DAILY 30 Days Qty: 30 0RF doxycycline monohydrate 100 mg Capsule 100 mg PO BID 14 Days Qty: 28 0RF aspirin 81 mg Tablet,Chewable 81 mg PO BID 30 Days Qty: 60 0RF Rx Instructions: Take 81 mg aspirin twice daily for 4 weeks postoperatively for DVT prophylaxis. oxycodone 5 mg Tablet 5 - 10 mg PO Q4H PRN PRN (Reason: as needed for pain) 7 Days Qty: 42 0RF sennosides-docusate sodium [Stimulant Laxative Plus] 8.6-50 mg Tablet 2 tab PO BID 3 Days Qty: 12 0RF Rx Instructions: Take until first bowel movement, then as needed Continued cholecalciferol (vitamin D3) 50 mcg (2,000 unit) tablet 25 mcg PO DAILY metformin 500 mg tablet extended release 24 hr 1,000 mg PO QPM Patient Comments: PLEASE SEE ATTACHED FOR DETAILED DIRECTIONS lisinopril 20 mg tablet 20 mg PO DAILY phentermine 15 mg capsule 37.5 mg PO DAILY Patient Comments: TAKE 1 CAPSULE BY MOUTH DAILY BEFORE BREAKFAST FOR 30 DAYS. levothyroxine 25 mcg tablet 25 mcg PO DAILY Referrals / Follow Up: Physical,Therapy [Other] - 02/24/24 3:00 pm Stefany Mayorga NP-C [Primary Care Provider] - Lety Tate PA [Med Staff - [facility]] - 03/07/24 8:45 am Disposition Disposition (needs filled in before D/C Order can be placed): Home, Self Care
--- NOTE | 2024-02-23 09:25 | CASEMGMT ---
RN PAPITO AIRCRAFT HYDRAULIC EQUIPMENT MECHANIC PAPITO?to room to meet with patient for initial transition planning/care coordination assessment. RN PAPITO?introduced self and role at [facility]. Pt voices understanding and consents to assessment?at this time. Pt sitting up in chair in no distress at this time. Pt is A/O at this time and answers all questions appropriately. Care providers, pharmacy, and demographics verified/updated at this time. Strata:?2 PCP: HARESH, Stefany Mayorga Specialists: Dr Oli Mancia-ortho Preferred Pharmacy: [facility] Insurance: [facility], AARP Prescription Benefit: Yes, [employer] Living Will/HPOA: Pt has both LW and HCPOA. She is aware documents are not on-file @ [facility] and states she plans to bring them in sometime to have them scanned in. LNOK: Daughter, Hawa Rutledge. Son, Mayur Rutledge Living Arrangements: Lives alone in one-story home w/3 steps to enter. Independent w/ADL's and IADL's @ baseline. 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 Pt worked w/stairs w/therapy today and feels comfortable w/doing them @ home. Has arrangements made for the next 3 weeks to either have someone stay w/her @ her home, or she will be going to daughterZohreh' home. Transportation:?Pt states drives self and states no transportation concerns at this time. Hawa will be taking pt home today and staying the night with her tonight. DME: States has the following DME: shower chair, BSC, walker, grab bars, BP machine. Pt tried CPAP in the past, but unable to tolerate it, so no longer uses it. Pt states no need for further DME at this time. HHC/SNF: No hx of either. Pt wishes to do OP therapy @ [facility]. 1st appt is scheduled for tomorrow 02/23 @ 3PM. She states she has all of the other appts scheduled already as well, in addition to transportation. Pt wishes to return home and states has no concerns with going home at time of discharge. PLAN: Home w/family and friends support and OP therapy. Karyna YEBOAH RN, CM
--- NOTE | 2024-02-23 10:11 | CASEMGMT ---
Met with patient to complete SPRINGER form. SPRINGER form explained to patient who voiced understanding and signed form. Original form placed in pt?s chart and copy provided to patient. Salena Trejo, Discharge Planning Asst
--- NOTE | 2024-02-23 10:30 | PCM.PN.HOSP ---
Subjective Subjective Doing well, no issues overnight. Pain is controlled Objective Data Objective Data Vital Signs: Vital Signs Temp Pulse Resp BP Pulse Ox O2 Del Method O2 Flow Rate 97.9 F 78 18 105/72 93 Room Air 4 02/23/24 04:41 02/23/24 04:41 02/23/24 04:41 02/23/24 04:41 02/23/24 04:41 02/23/24 04:41 02/22/24 15:00 Oxygen Flow Rate (L/min) 4 Oxygen Delivery Method Room Air Weight: 232 lb 2.348 oz Body Mass Index (BMI) 42.4 Intake & Output: Intake and Output for Last 24 Hours 02/22/24 02/23/24 02/24/24 03:59 03:59 03:59 Intake Total 3227 / 3227 550 / 550 Balance 3227 / 3227 550 / 550 Lab / Micro Data 02/23/24 05:58 02/23/24 05:58 Labs: Laboratory Results - last 24 hr 02/22/24 09:51: POC Glucose 100 02/22/24 16:49: POC Glucose 149 H 02/22/24 21:37: POC Glucose 140 H 02/23/24 05:58: WBC 10.5, RBC 3.69 L, Hgb 11.4 L, Hct 34.8 L, MCV 94.3, MCH 30.9, MCHC 32.8, RDW Std Deviation 41.1, RDW Coeff of Ramesh 11.9, Plt Count 229, MPV 9.3, Sodium 138, Potassium 4.6, Chloride 106, Carbon Dioxide 25.0, Anion Gap 6, BUN 21 H, Creatinine 0.96, Estim Creat Clear Calc 66.57, Est GFR (MDRD) Af Amer 75, Est GFR (MDRD) Non-Af 62, BUN/Creatinine Ratio 21.8 H, Glucose 114 H, Calcium 9.0 02/23/24 06:39: POC Glucose 91 Micro: Microbiology 02/04/24 06:06 Swab (Method) Nasal Screen MRSA/MSSA - Final Radiography Diagnostic Testing: Radiology Impression Knee X-Ray 02/22/24 14:15 IMPRESSION: Satisfactory postoperative alignment of right knee arthroplasty. Electronically Signed: Micaela Jose MD at 15:27 EST , Physical Exam Narrative General: Alert, Oriented x3, Cooperative, No apparent distress HEENT: Atraumatic, PERRLA, EOMI, Normocephalic Oral: Moist Mucosa Neck: Supple, No JVD Lungs: Diminished, Normal air movement, No rhonchi, No wheeze, No rales Cardiovascular: Regular rate, Regular Rhythm, Normal S1, Normal S2, No murmurs Abdomen: Soft, Non Tender, Non-Distended, No Hepato-splenomegaly Extremities: No edema, Capillary Refill Less than 3 Seconds Skin: Dressing CDI Musculoskeletal: No Tenderness to Palpation of Joints or Extremities Neurological: No focal neurological deficits, Motor Exam 5/5 strength throughout, Sensory exam intact to light touch and pain Psych/Mental Status: Normal Affect, Appropriate Assessment & Plan Assessment/Plan (1) Osteoarthritis: PLAN: Plan #1. Severe Osteoarthritis, right knee: Failed conservative therapies and treatments, admitted per Dr. Hart, s/p 02/22/24 minimally invasive right robotic assisted total knee replacement, post-operative pain management, bowel regimen, DVT Prophylaxis, PT/OT/CM per Orthopedic surgery discretion. 02/23/2024: She appears to be stable for discharge from medical standpoint, can resume all of her home meds on discharge #2. Diabetes mellitus type II: Recommend holding metformin temporarily, may resume upon discharge, maintain on ADA diet, accu checks w/ ISS. #3. Hypertension: Continue home regimen including lisinopril, PRN hydralazine. #4. Hyperlipidemia: Noted statin intolerance, encourage continued outpatient follow-up. #5. Hypothyroidism: Continue patient home levothyroxine regimen. #6. Morbid Obesity: Weight loss and lifestyle changes encouraged. Holding phentermine #7. GERD: We will continue patient on famotidine regimen. #8. ERASMO: PAP therapy if utilizes/amenable. Charges/Coding Visit Charges Inpatient E&M: 45467 Subs Hosp L2
[2024-02-23 10:38] VITALS: BP 118/75; PULSE 65; RESP 16; TEMP 36.4; O2SAT 100
[2024-02-23] MEDS: Cholecalciferol (VIT D3) 25 MCG TABLET (1,000 UNITS) PO (10:46)
[2024-02-23] MEDS: oxyCODONE 5 MG Tablet PO (10:46)
[2024-02-23] MEDS: Doxycycline 100 MG CAPSULE PO (10:46)
[2024-02-23] MEDS: Aspirin 81 MG TAB.CHEW PO (10:46)
[2024-02-23] MEDS: Lisinopril 20 MG Tablet PO (10:46)
[2024-02-23] MEDS: Polyethylene Glycol 3350 17 GM PACKET PO (10:47)
--- NOTE | 2024-02-23 11:07 | PHA.DC.MC.R ---
Pharmacy [facility] Pharm[facility] Service has performed discharge medication reconciliation and counseling for this patient. 1. ACETAMINOPHEN 1000MG PO Q8 2. ASPIRIN 81MG PO BID X 4 WEEKS 3. DOXYCYCLINE 100MG PO BID X 2 WEEKS 4. FAMOTIDINE 20MG PO DAILY 5. OXYCODONE 5-10MG PO Q4H PRN PAIN 6. SENNA/DOCUSATE 2T PO BID The patient's discharge medication list was reviewed for discrepancies and discrepancies were resolved. The patient was counseled on the following discharge medications and changes in medications for homegoing were reviewed. The Reason for Use, instructions for use, and potential side effects were reviewed for all new medications. The patient's questions regarding all of their medications were answered. The patient was able to verbally demonstrate an understanding of their discharge medications. Patient counseled by pharmacy retail support specialistWilliam. Medications at Discharge Home Medications cholecalciferol (vitamin D3) 50 mcg (2,000 unit) tablet 25 mcg PO DAILY supplement 07/23/22 metformin 500 mg tablet,extended release 24 hr 1,000 mg PO QPM diabetes 12/25/22 lisinopril 20 mg tablet 20 mg PO DAILY bp 02/01/24 phentermine 15 mg capsule 37.5 mg PO DAILY weight loss 02/01/24 levothyroxine 25 mcg tablet 25 mcg PO DAILY 02/22/24 acetaminophen 500 mg tablet 1,000 mg (2 x 500 mg) PO Q8 14 days #84 tabs 02/23/24 aspirin 81 mg chewable tablet 81 mg PO BID 30 days #60 tabs 02/23/24 doxycycline monohydrate 100 mg capsule 100 mg PO BID 14 days #28 caps 02/23/24 famotidine 20 mg tablet 20 mg PO DAILY 30 days #30 tabs 02/23/24 oxycodone 5 mg tablet 5 - 10 mg (1 - 2 x 5 mg) PO Q4H PRN PRN as needed for pain 7 days #42 tabs 02/23/24 sennosides 8.6 mg-docusate sodium 50 mg tablet (Stimulant Laxative Plus) 2 tab PO BID 3 days #12 tabs 02/23/24
== END 2024-02-23 11:23 | disposition home or self-care (01) ==
LOC: MS3 02-23 07:36 → SDC 02-23 16:22 → AC 02-23 16:22 → SDC 02-23 16:26 → MS3 02-23 16:26
PROVIDERS: Anesthesiology; Admitting Provider Specialist; PCP Nurse Practitioner Family; Referring Provider Specialist; Visit Provider Specialist
PROC: 0SRC0JZ Replacement of Right Knee Joint with Synthetic Substitute, Open Approach (ICD-10-PCS; CPT 27447; principal; 2024-02-22 10:45)
DX: M17.11 Unilateral primary osteoarthritis, right knee (principal); Z68.41 Body mass index [BMI] 40.0-44.9, adult; E66.01 Morbid (severe) obesity due to excess calories; E11.9 Type 2 diabetes mellitus without complications; I10 Essential (primary) hypertension; E78.5 Hyperlipidemia, unspecified; Z79.899 Other long term (current) drug therapy; Z79.84 Long term (current) use of oral hypoglycemic drugs; R06.09 Other forms of dyspnea; R93.1 Abnormal findings on diagnostic imaging of heart and coronary circulation; R53.83 Other fatigue; R00.2 Palpitations; E55.9 Vitamin D deficiency, unspecified; E03.9 Hypothyroidism, unspecified; Z79.890 Hormone replacement therapy; K21.9 Gastro-esophageal reflux disease without esophagitis; G47.33 Obstructive sleep apnea (adult) (pediatric)
CPT/HCPCS: 27447; S2900; 01402; 64447; 36415; 73560; 80048; 82040; 82962; 83036; 83735; 84443; 85025; 85027; 87077; 87081; 88305; 88311; 93005; 94668; 96365; 96366; 97162; 97166; 99221; 99252; C1776; J7040; J7120; A4216; G0378; G0463; J2405; J3475

== ENCOUNTER → 2024-03-25 | Outpatient (CLI) | payer MEDICARE, OTHER, SELFPAY ==
[2024-03-25 15:14] LABS: T4 Free Direct 1.14 ng/dL (0.76-1.46)
== END | disposition home or self-care (01) ==
LOC: MTLAB 09:05
PROVIDERS: PCP Nurse Practitioner Family; Referring Provider Nurse Practitioner Family; Visit Provider Nurse Practitioner Family
DX: E03.9 Hypothyroidism, unspecified (principal)
CPT/HCPCS: 36415; 84439; 84443

== ENCOUNTER → 2024-05-06 | Outpatient (CLI) | payer MEDICARE, OTHER, SELFPAY ==
--- NOTE | 2024-05-06 06:18 | CT_ITS ---
PROCEDURE: Noncontrast CT of the left lower extremity. REASON FOR EXAM: Left knee pain. Preoperative evaluation. TECHNIQUE: Contiguous unenhanced axial CT images were obtained through portions of the left hip, knee, and ankle. Sagittal and coronal reformats were created. COMPARISON: None available FINDINGS: The bones are osteopenic. No acute fracture or dislocation of the included portions of the left hip, knee, or ankle. There are moderate to severe tricompartmental degenerative changes of the left knee, greatest involving the medial compartment. No osteochondral lesion is demonstrated. Trace left knee effusion. No patellar dislocation. Included hindfoot structures of the left foot are intact. No osteochondral lesion of the talus. CT/Extremity Lower without Contra IMPRESSION: Preoperative evaluation of the left lower extremity. No acute bony abnormality of the left hip, knee, or ankle. Moderate/severe tricompartmental degenerative changes of the left knee, greates t involving the medial compartment. One or more dose reduction techniques were used (e.g., Automated exposure contr ol, adjustment of the mA and/or kV according to patient size, use of iterative reconstruction technique). Reading Location: [facility]
== END | disposition home or self-care (01) ==
PROVIDERS: PCP Nurse Practitioner Family; Referring Provider Specialist; Visit Provider Specialist
DX: M17.12 Unilateral primary osteoarthritis, left knee (principal); M25.562 Pain in left knee
CPT/HCPCS: 73700

== ENCOUNTER 2024-05-30 07:17 | Observation (INO) | payer MEDICARE, OTHER, SELFPAY ==
--- NOTE | 2024-05-04 08:52 | PAT.ANE_ITS ---
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 When Was Last Pacemaker Check QUESTION #4 FULL TEXT: You/Your Family Experience fever (hyperthermia) with Anesthesia Last Oral Intake Last Oral intake: Last Oral Intake NPO since Meds taken in AM with sips of water? 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 Has anyone observed you stop No 05/04/24 08:23 breathing during sleep? STOP Results Negative 05/04/24 08:23 QUESTION #5 FULL TEXT : Do you snore loudly (louder than talking or can be heard through closed doors)? 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 Specify any problems Hx of Preganancy in last 3 N/A 05/04/24 08:23 Months Nurse Filling Out Transfusion NBUCHER 05/04/24 08:23 & Questions: Date: 05/04/24 05/04/24 08:23 Time: 0805/04/24 08:23 Patient unable to answer at this time (ie. 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 Hx Now No 05/04/24 08:23 Gestational Age (in weeks): EDC: Hx Hx Para Hx Section SAB No 05/04/24 08:23 PFSH Medical History MRSA (methicillin resistant staph aureus) culture positive Wears glasses Post-menopausal Thyroid disease Diabetes Arthritis Fatty liver High cholesterol Sleep apnea Shortness of breath on exertion Leg cramps Hypertension History of stress test History of echocardiogram Cardiology follow-up encounter Hypothyroidism Non-smoker Congestive heart failure (CHF) Abnormal stress test Type 2 diabetes mellitus without complication Back pain Screening for intestinal cancer Obesity Varicose veins of bilateral lower extremities with other complications Osteoarthritis Home Medications ?Medication ?Instructions ?Recorded ?Last Taken ?Type metformin 500 mg tablet,extended 1,000 mg PO QPM diabe artur 12/25/22 02/21/24 History release 24 hr lisinopril 20 mg tablet 20 mg PO DAILY bp 02/01/24 1 04/22/23 History phentermine 15 mg capsule 37.5 mg PO DAILY weight loss 02/01/24 02/21/24 History acetaminophen 500 mg tablet 1,000 mg PO Q8 PRN pain Unknown History sennosides 8.6 mg-docusate sodium 2 tab PO BID PRN con stipation 05/04/24 Unknown History 50 mg tablet (Stimulant Laxative Plus) Allergy/AdvReac Type Severity Reaction Status Date / Time erythromycin base AdvReac Severe GI Upset Verified 05/04/24 08:20 atorvastatin AdvReac Intermediate Extreme Verified 05/04/24 08:20 dizziness, Nausea, cramping amoxicillin (From Augmentin) AdvReac Unknown GI Upset Verified 05/04/24 08:20 clavulanic acid (From AdvReac Unknown GI Upset Verified 05/04/24 08:20 Augmentin) Family History Mother CAD (coronary artery disease) Grandfather Congestive heart failure Grandmother CVA (cerebral vascular accident) Father Colon cancer Brother Colon cancer Surgical History (Updated 05/04/24 @ 08:27 by Mary Concepcion) History of right knee joint replacement History of cardiac catheterization History of hysterectomy History of tubal ligation History of tonsillectomy History of adenoidectomy History of liver biopsy History of cholecystectomy History of section Social History Smoking Status: Never smoker alcohol intake: never substance use type: does not use caffeine: No Audit: Pertinent Findings Pertinent Findings EKG Perinent findings: 02/04/2024 normal sinus rhythm 87 bpm normal EKG Echo (EF%) pertinent findings: 08/28/2022 EF 60% normal valves Heart catheterization pertinent findings: 03/02/2023 suspected CAD this due to abnormal stress conclusion was nonobstructive coronary arteries medical therapy and antihypertensive therapy only Consult pertinent findings: Cardiology 12/25/2022 abnormal stress test 08/16/2022 mildly abnormal perfusion stress test cardiac catheterization ordered denied by insurance she was therefore placed on medical therapy and will check coronary calcium score to further assess this Recommendation Anesthesia Recommendation Anesthesia recommendation: OPTIMIZED for anesthesia
[2024-05-06 07:05] LABS: Absolute Lymphocyte Count 2.19 X10^3/uL (0.83-4.51); Absolute Neutrophil Count 3.3 X10^3/uL (2.0-7.7); Basophil# 0.05 X10^3/uL; Basophil% 0.8 % (0-1); Eosinophil# 0.16 X10^3/uL; Eosinophils% 2.6 % (0-5); Hematocrit 38.5 % (37-47); Hemoglobin 12.6 g/dL (12.0-15.0); Lymphocyte # 2.19 X10^3/ul (0.83-4.51); Mean Corp Hgb Conc 32.7 g/dL (32-36); Mean Corpuscular Hgb 30.6 pg (27.0-32.0); Mean Corpuscular Volume 93.4 fL (81-99); Mean Platelet Vol. 9.1 fl (6.2-12.0); Monocyte% 6.6 % (0-10); NRBC Flagged by Analyzer 0 % (0-5); Neutrophil # 3.25 X10^3/uL (2.7-7.7); Neutrophil % 53.5 % (47-70); Platelet Count 303 K/mm3 (150-450); RBC Distribution Width CV 12.3 % (11.6-14.6); RBC Distribution Width SD 42.4 fl (35.1-43.9); Red Blood Count 4.12 M/mm3 (4.2-5.4); White Blood Count 6.1 K/mm3 (4.4-11.0)
[2024-05-06 07:44] LABS: Albumin, Serum 3.7 g/dL (3.2-5.0); Anion Gap 5 (5-15); BUN 21 mg/dL (7-18); BUN/Creat Ratio 23.9 RATIO (10-20); Calcium,Total 9.4 mg/dL (8.5-10.1); Chloride 105 mmol/L (98-107); Creatinine, Serum 0.88 mg/dL (0.55-1.02); EST Glomerular Filtration Rate 68 mL/min (>60); Est Glom Filt Rate - Afr Amer 83 mL/min (>60); Glucose 104 mg/dL (74-106); Magnesium 2.1 mg/dL (1.6-2.6); Potassium 4.7 mmol/L (3.5-5.1); Sodium Level 137 mmol/L (136-145)
[2024-05-08 18:52] LABS: Hemoglobin A1c 5.5 % (3.8-5.6)
--- NOTE | 2024-05-09 08:56 | PCM.HP.BLA ---
History and Physical History and Physical Patient Name: Becky Rutledge : 1960From:? JULIAN HOUSE PA-C DATE OF PRE-OPERATIVE EXAM: 05/09/2024 DATE OF SURGERY:? 05/30/2024 SCHEDULED PROCEDURE:? Robotic-assisted left total knee arthroplasty HISTORY OF PRESENT ILLNESS: Preoperative history and physical exam was performed on May 09, 2024.? This is a 64-year-old female who has had ongoing bilateral knee pain.? Patient recently on February 22, 2024 underwent a right total knee arthroplasty by Dr. Oli Mancia.? She is doing well from that procedure.? However she has continued to have ongoing left knee pain.? Patient's pain can reach 7/10.? She has been using Tylenol and Aleve as needed for pain control.? Pain has been intermittent, aching, and sharp.? Pain is increased with going up and down steps and walking.? She has difficulty with activities of daily living including housework.? Patient has tried rest, elevation and previous corticosteroid injection with minimal relief.? She has been through previous home exercises with minimal relief.? Patient has been using a cane for ambulatory assistance.? She denies past history of surgery on the left knee.? Patient has obtained previous clearance from the primary care provider Stefany Mayorga.? There is been no change in medical history since last surgery.? Patient has history consistent with hypertension, type 2 diabetes mellitus with last A1c 5.5, sleep apnea, thyroid disease, peripheral vascular disease, and history constipation.? She does report leg cramps at times.? No past history of DVT or pulmonary embolism.? After failing conservative measures and discussing all treatment options was Dr. Oli Mancia, the patient does wish to proceed with a left total knee arthroplasty.? Patient denies any recent chest pain, shortness of breath, fevers chills or recent infections. REVIEW OF SYSTEMS: Review Of Systems: Constitutional: Denies anorexia, change in appetite, fever, difficulty sleeping, weight change. Cardiovasular: Reports peripheral vascular disease, but denies chest pain, heart murmur and irregular heartbeat. Respiratory: Reports sleep apnea, but denies asthma, cough, pneumonia, shortness of breath, tuberculosis and wheezing. Gastrointestinal: Reports constipation, but denies diarrhea, heartburn, nausea, rectal itching, bloody stools and vomiting. Genitourinary: Denies incontinence. Musculoskeletal: Reports pain and trouble walking, but denies leg swelling and weakness. Skin: Denies Raynaud's, history of shingles and tattoo. Neurological: Denies ambulatory dysfunction, difficulty with balance, dizziness, numbness/tingling and tremor. Psychiatric: Denies anxiety, depression, insomnia, mental illness and stress. Hematologic/Lymphatic: Denies anemia, bleeding/bruising tendency and past transfusion. Reviewed and updated. PAST MEDICAL HISTORY: Advance Care Plan: Other Directive, POA Effective Date: 12/20/2019 Other Directive, LIVING WILL Effective Date: 12/20/2019 Past Medical History: Medical Problems: High Blood Pressure Diabetes - Type 2 Currently on a medication for weight loss, Arthritis, Osteoporosis Covid- 19 - twice Covid-19 Vaccine Sleep Apnea - does not use Cpap Thyroid Disease, peripheral vascular disease, constipation Accidents: None Surgical Hx: Gallbladder - (2007) [facility] Tonsillectomy - (1989) [facility] Varicose Vein Stripping - (2007) [facility]/ Section - (1988) WITH TUBAL/[facility] LT Knee Arthroscopy - (08/29/2008) [facility] @ [facility] Hysterectomy - (2006) Heart catheterization - (05/2023) Knee Replacement RT - (02/22/2024) ROBOTIC ASSISTED DR. MANCIA AT [facility] Anesthesia Complications: None Assistive Devices: Glasses Reviewed and updated. SOCIAL HISTORY: Social History: Marital: .Occupation: [employer] Retired.Work Status: Retired.Hand Dominance: Right-handed. Personal Habits:? Cigarette Use: Never.Smokeless Tobacco: Never Used Smokeless Tobacco.E-Cigarette Use: Never used.Alcohol: Denies use.Drug Use: Denies Use.Enjoy Exercising: Daily. Reviewed, no changes. VITALS: Ht: 62.5 Wt: 231lb Wt k.782 BMI: 41.6 BP: 122/76 Pulse: 97 Resp: 17 T: 97.7 T: 36.5C Pain Level: 3 O2SatR: 97 ALLERGIES: Meloxicam MEDICATIONS: Metformin HCL 500 mg 1 by mouth twice a day, Lisinopril 20 mg 1 by mouth every day, Phentermine HCL 37.5 mg take 1 tablet by mouth every morning, Aspirin 81 81 mg 1 pill 2x/day by mouth, Tylenol Extra Strength 500 mg 2 tablet by mouth 3x/day, Aleve 220 mg 1-2 tablets po 2x/day, D3 Adult 25 mcg (1000 Ut) daily, Levothyroxine Sodium 50 mcg take 1 tab by mouth once daily PRE-OP EXAM: General appearance:NORMAL? Other: Eyes: Conjunctivae and lids: NORMAL? Pupils: ERR Ears, Nose, Mouth, and Throat: NORMAL? Other: Inspection of lips, teeth and gums: NORMAL?? Other: Neck: Examination of neck: no masses noted. Respiratory: Assessment of respiratory effort: NORMAL?? Other: ? Auscultation of lungs: clear to auscultation no wheezes, rhonchi or rales. Cardiovascular:? Auscultation of heart: regular rate and rhythm, no murmurs, gallops or rubs. PHYSICAL EXAMINATION: On exam of the left knee there is no erythema or signs of infection.? She has moderate effusion.? Tenderness to palpation over the medial joint line.? She has varus alignment which is nearly correctable on exam.? Range of motion: Lacks 10 full extension to 110 flexion.? She walks with an antalgic gait.? Sensation intact to light touch. IMAGING STUDIES: Previous x-rays of the left knee reveal varus alignment with medial joint space narrowing, subchondral sclerosis, osteophyte formation consistent with severe stage IV [id number] osteoarthritis. IMPRESSION: 1.? Severe stage IV bone on bone left knee osteoarthritis 2.? Presence of right total knee arthroplasty: February 22, 2024 3.? Hypertension 4.? Type 2 diabetes mellitus: A1c 5.5 5.? Obstructive sleep apnea 6.? Thyroid disease 7.? Peripheral vascular disease 8.? History constipation 9.? Morbid obesity with BMI 41.6 PLAN: Dr. Oli Mancia did discuss and review with the patient all treatment options including surgical versus nonsurgical options.? I will continue plan established by Dr. Oli Mancia.? Patient does wish to proceed with the above-stated procedure.? Potential risks, benefits, and complications of the procedure were discussed in detail including but not limited to , infection, nerve and blood vessel damage, persistent pain, numbness, tingling, paresthesias, blood clot, pulmonary embolism, and requirement for possible further surgery.? The patient expressed full understanding and has no further questions for the doctor.? Patient does agree to proceed with the above-stated procedure and has signed the surgery consent form. POST-OP MEDICATION PLAN: Pain Medications: Postoperative pain regimen will be initiated by Dr. Oli Mancia in the hospital.? Patient cannot take meloxicam but states she uses Aleve with no complications.? She has a walker that she will bring to the hospital.? Due to the elevated BMI greater than 40.0 patient will be on doxycycline for 2 weeks postoperatively.? Patient was advised on potential side effects including sensitivity to the sunlight and should take appropriate precautions.? I recommended [id number] probiotics while on the antibiotic.? She voiced understanding and agreement. DVT Prophylaxis:? Aspirin 81 mg twice daily for 4 weeks postoperatively.? Denies past history of DVT or pulmonary embolism This dictation was created using voice recognition software. Phonetic and/or grammatical errors may exist. ___? I have re-examined the patient.? There are no clinical changes since date of exam. ___? See progress notes for changes. ___? Dictated on admission Date: ? Time: Signature:
[2024-05-30] VITALS (13 sets, daily range): BP systolic 85–138; BP diastolic 53–81; PULSE 76–96; RESP 16–20; TEMP 36.1–36.6; O2SAT 98–100; BMI 42.5; BMI 42.7
--- NOTE | 2024-05-30 08:17 | PRE.ANES_ITS ---
ASA Classification* ASA Classification ASA Classification: 2 Assessment & Plan Anesthesia* Anesthesia Assessment Anesthesia Assessment: Discussed sedation and/or anesthesia options, risks, benefits, and alternatives with patient/parents/legal guardian/POA. Questions invited. The patient/parents/legal guardian/POA seems to understand and agrees to proceed with anesthesia plan. Reviewed the physical assessment, medical history, allergy history and patient home medications list prior to surgery/procedure/anesthetic and documented any changes. Performed airway and anesthesia risk assessments. Anesthesia Type Anesthesia Type: Spinal and Block Anesthesia Focused Assessment* Airway Assessment Mouth opens: >3 cm Mallampati Score: II Focused Labs Anesthesia Preop lab: CBC WBC 6.1 K/mm3 (4.4-11.0) 05/06/24 06:22 05/06/24 RBC 4.12 M/mm3 (4.2-5.4) L 05/06/24 06:22 05/06/24 Hgb 12.6 g/dL (12.0-15.0) 05/06/24 06:22 05/06/24 Hct 38.5 % (37-47) 05/06/24 06:22 05/06/24 Plt Count 303 K/mm3 (150-450) 05/06/24 06:22 05/06/24 CHEMISTRY Potassium 4.7 mmol/L (3.5-5.1) 05/06/24 06:22 05/06/24 Sodium 137 mmol/L (136-145) 05/06/24 06:22 05/06/24 Magnesium 2.1 mg/dL (1.6-2.6) 05/06/24 06:22 05/06/24 BUN 21 mg/dL (7-18) H 05/06/24 06:22 05/06/24 Creatinine 0.88 mg/dL (0.55-1.02) 05/06/24 06:22 05/06/24 Glucose 104 mg/dL (74-106) 05/06/24 06:22 05/06/24 POC Glucose 91 mg/dL (74-106) 02/23/24 06:39 02/23/24 TSH 7.660 uIU/mL (0.358-3.740) H 05/06/24 06:22 COAG PT 11.7 SECONDS (11.7-14.9) 08/28/22 15:14 Pre-Assessment Diagnosis/Proposed Procedure Planned Operative Procedure(s): (L) ERAS, ROBOTIC ASSISTED LEFT TOTAL KNEE ARTHROPLASTY Anesthesia History 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 When Was Last Pacemaker Check QUESTION #4 FULL TEXT: You/Your Family Experience fever (hyperthermia) with Anesthesia Last Oral Intake Last Oral intake: Last Oral Intake NPO since Meds taken in AM with sips of water? 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 - food mobile driver: PONV - food mobile driver Female Yes 05/04/24 08:23 HX of Motion Sickness No 05/04/24 08:23 HX of N/V After Surgery No 05/04/24 08:23 Non-Smoker Yes 05/04/24 08:23 Duration of Surgery greater Yes 05/04/24 08:23 than 60 minutes Number of Risk Factors 3 05/04/24 08:23 PONV Score Moderate Risk 05/04/24 08:23 Height & Weight Height & Weight: Anesthesia: Height & Weight Height 5 ft 2 in 02/22/24 19:05 Respiratory Assessment Respiratory Assessment - food mobile driver: Respiratory Tract Infection Hx - food mobile driver Hx Respiratory Tract Infection No 05/04/24 08:23 STOP Sleep Apnea STOP Sleep Apnea - food mobile driver: STOP Sleep Apnea - food mobile driver Hx Hypertension Yes: CONTROLLED WITH MED 05/04/24 08:23 Hx Sleep Apnea No 05/04/24 08:23 CPAP BIPAP Do you snore loudly (louder No 05/04/24 08:23 than talking or can be heard Do you often feel tired/ No 05/04/24 08:23 fatigued/ sleepy during daytime? Has anyone observed you stop No 05/04/24 08:23 breathing during sleep? STOP Results Negative 05/04/24 08:23 QUESTION #5 FULL TEXT : Do you snore loudly (louder than talking or can be heard through closed doors)? 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 Specify any problems Hx of Preganancy in last 3 N/A 05/04/24 08:23 Months Nurse Filling Out Transfusion NBUCHER 05/04/24 08:23 & Questions: Date: 05/04/24 05/04/24 08:23 Time: 08:25 05/04/24 08:23 Patient unable to answer at this time (ie. confused, unrespo /Reproduction History /Reproductive History - food mobile driver: /Reproductive Hx- food mobile driver Hx Now No 05/04/24 08:23 Gestational Age (in weeks): EDC: Hx Hx Para Hx Section SAB No 05/04/24 08:23 Active Medications Active Medications: Current Medications Generic Name Dose Route Start Last Admin Trade Name Freq PRN Reason Stop Dose Admin Acetaminophen 1,000 mg 05/30/24 10:00 Acetaminophen 500 Mg Tablet PO 05/30/24 10:01 X1 ONE Acetaminophen 1,000 mg 05/30/24 14:00 Acetaminophen 500 Mg Tablet PO Q8 KWAME Aspirin 81 mg 05/30/24 10:00 Aspirin 81 Mg Tab.Chew PO BID KWAME Celecoxib 400 mg 05/30/24 10:00 Celecoxib 200 Mg Capsule PO 05/30/24 10:01 X1 ONE Sodium Chloride 77.4 ml/ 0 ml 05/30/24 10:00 Ropivacaine 200 mg/ OPERA.SITE 05/30/24 10:01 Epinephrine HCl 0.6 mg/ X1 ONE Ketorolac Tromethamine 30 mg/ Morphine Sulfate 5 mg Dexamethasone Sodium Phosphate 10 mg 05/30/24 10:00 Dexamethasone 10 Mg/Ml Vial IV 05/30/24 10:01 X1 ONE Enteral Nutritional Formula 237 ml 05/30/24 08:00 Ensure Surgery 237 Ml Liquid PO TIDCM [facility] Famotidine 20 mg 05/30/24 10:00 Famotidine 20 Mg Tablet PO DAILY [facility] Gabapentin 600 mg 05/30/24 10:00 Gabapentin 600 Mg Tablet PO 05/30/24 10:01 X1 ONE Lactated Ringer's 1,000 mls @ 999 mls/hr 05/30/24 10:00 IV 05/30/24 11:00 .Q1H1M [facility] Cefazolin Sodium 2 gm/ N/A 20 mls @ 400 mls/hr 05/30/24 10:00 IV 05/30/24 10:02 PREOP ONE Tranexamic Acid 1,000 mg/ 110 mls @ 660 mls/hr 05/30/24 10:00 Sodium Chloride IV 05/30/24 10:09 X1 ONE Tranexamic Acid 1,000 mg/ 110 mls @ 660 mls/hr 05/30/24 10:00 Sodium Chloride IV 05/30/24 10:09 X1 ONE Magnesium Sulfate 1 gm/ 102 mls @ 408 mls/hr 05/30/24 10:00 Dextrose IV 05/30/24 10:14 X1 ONE Cefazolin Sodium 1 gm in 50 mls @ 150 mls/hr 05/30/24 14:00 IV 05/30/24 22:19 Q8 [facility] Insulin Human Lispro 1 - 6 unit 05/30/24 10:00 Insulin Lispro 100 Unit/Ml Insuln.Pen SC 05/30/24 23:59 Q4H PRN PRN BG>/= 180, SEE PROTOCOL Protocol Ketorolac Tromethamine 15 mg 05/30/24 07:17 Ketorolac 15 Mg/Ml Vial IV 06/01/24 07:20 Q6H PRN PRN Pain Score 1-5 Montelukast Sodium 10 mg 05/31/24 13:00 Montelukast 10 Mg Tablet PO DAILY@1700 [facility] Morphine Sulfate 2 - 4 mg 05/30/24 07:17 Morphine 2 Mg/Ml Syringe IV Q2H PRN PRN Pain Score 6-10 Naproxen 500 mg 05/31/24 13:00 Naproxen 500 Mg [facility] Ondansetron HCl 4 mg 05/30/24 07:17 Ondansetron 4 Mg/2 Ml Vial IV Q8H PRN PRN NAUSEA Oxycodone HCl 5 - 10 mg 05/30/24 07:17 Oxycodone 5 Mg Tablet PO Q4H PRN PRN Pain Score 4-10 Promethazine HCl 12.5 mg 05/30/24 07:17 Promethazine 25 Mg/Ml Syringe IM Q6H PRN PRN NAUSEA/VOMITING Protocol Senna/Docusate Sodium 2 tablet 05/30/24 10:00 Senna/Docusate Sodium 1 Tablet PO BID [facility] PFS Medical History MRSA (methicillin resistant staph aureus) culture positive Wears glasses Post-menopausal Thyroid disease Diabetes Arthritis Fatty liver High cholesterol Sleep apnea Shortness of breath on exertion Leg cramps Hypertension History of stress test History of echocardiogram Cardiology follow-up encounter Hypothyroidism Non-smoker Congestive heart failure (CHF) Abnormal stress test Type 2 diabetes mellitus without complication Back pain Screening for intestinal cancer Obesity Varicose veins of bilateral lower extremities with other complications Osteoarthritis Home Medications ?Medication ?Instructions ?Recorded ?Last Taken ?Type metformin 500 mg tablet,extended 1,000 mg PO QPM diabe artur 12/25/22 02/21/24 History release 24 hr lisinopril 20 mg tablet 20 mg PO DAILY bp 02/01/24 1 04/22/23 History phentermine 15 mg capsule 37.5 mg PO DAILY weight loss 02/01/24 02/21/24 History acetaminophen 500 mg tablet 1,000 mg PO Q8 PRN pain Unknown History sennosides 8.6 mg-docusate sodium 2 tab PO BID PRN con stipation 05/04/24 Unknown History 50 mg tablet (Stimulant Laxative Plus) Allergy/AdvReac Type Severity Reaction Status Date / Time erythromycin base AdvReac Severe GI Upset Verified 05/04/24 08:20 atorvastatin AdvReac Intermediate Extreme Verified 05/04/24 08:20 dizziness, Nausea, cramping amoxicillin (From Augmentin) AdvReac Unknown GI Upset Verified 05/04/24 08:20 clavulanic acid (From AdvReac Unknown GI Upset Verified 05/04/24 08:20 Augmentin) Family History Mother CAD (coronary artery disease) Grandfather Congestive heart failure Grandmother CVA (cerebral vascular accident) Father Colon cancer Brother Colon cancer Surgical History History of right knee joint replacement History of cardiac catheterization History of hysterectomy History of tubal ligation History of tonsillectomy History of adenoidectomy History of liver biopsy History of cholecystectomy History of section Social History Smoking Status: Never smoker alcohol intake: never substance use type: does not use caffeine: No Review of Systems (Anesthesia) ROS Narrative System reviewed and no additional complaints, except as documented.
[2024-05-30] MEDS: Magnesium 1 GM over 15 mins IV (08:49)
[2024-05-30] MEDS: Lactated Ringers 1,000 ML 999 ML IV (09:03)
[2024-05-30] MEDS: Gabapentin 600 MG Tablet PO (09:08)
[2024-05-30] MEDS: Acetaminophen 500 MG Tablet 1000 MG PO ×3 (09:08→20:50)
[2024-05-30] MEDS: Celecoxib 200 MG Capsule 400 MG PO (09:08)
--- NOTE | 2024-05-30 10:00 | KNEE_PTH ---
PATIENT: BECKY RUTLEDGE LOC: MS2 U#:[id number] AGE/SX: 64/F [place] [facility] [place]: Dr. Oli Mancia MD : 1960 BED: 1 DIS: 05/31/2024 SPEC #: [id number] RECD: 05/30/24 14:13 STATUS: SANTOS REAnatoly #: [id number] MIGUEL: 05/30/24 10:[address]: Oli Mancia DEPT: SURGICAL PATHOLOGY RECD BY: Flower Harris ENTERED: 05/31/24 10:47 SP TYPE: TOTAL KNEE OTHR DR: MD Dr. Yves Anthony DO Dr. Nicholas F Kotsonis, MD Dr. Prakash Chand, MD Rachel Edgar, INFORMATICS PHYSICIAN-C Tissues: Knee, NOS Procedures: Decalcification bone/plaque Surgery Specimen Level III HEADER OPERATION: ERAS, robotic assisted left total knee arthroplasty PRE-OP DIAGNOSIS: Severe stage IV bone on bone left knee osteoarthritis TISSUE SUBMITTED: Left knee bone and tissue MICROSCOPIC DIAGNOSIS Left knee, bone and soft tissue, total knee arthroplasty: * Articular bone with reactive and degenerative changes. MICROSCOPIC DESCRIPTION Slides are reviewed. GROSS DESCRIPTION Received in formalin labeled with the patient's name Becky Rutledge and designated left knee tissue and bone are multiple irregularly-shaped bony and soft tissue fragments that aggregate to 12.5 x 9.2 x 3.1 cm. The largest fragment is consistent with tibial plateau and shows an articular surface that is yellow-mondragon smooth along the periphery and yellow and granular centrally. Smaller fragments of bone also show yellow-mondragon focally [employer] granular articular surfaces. Cut surfaces of the fragments show yellow to red-brown trabecular bone. Sectioning shows the articular cartilage ranges from 0.1 to 0.4 cm. Represent sections are submitted as follows, after decalcification:Cassette summary:1-smaller fragments2-sections of tibial plateauJK. 05/31/2024 TC: CPT:60640,57880
[2024-05-30] MEDS: Cefazolin 2 GM in Syringe 10 ML IV (10:36)
[2024-05-30 10:37] LABS: Bedside Glucose 77 mg/dL (74-106)
[2024-05-30] MEDS: dexAMETHasone 10 MG/ML Vial IV (11:00)
[2024-05-30] MEDS: TXA 1000mg in NS100 100ml (IVPB at Incision) 660 MG IV (11:09)
[2024-05-30] MEDS: JPS (Morphine 10mg/ml) OPERA.SITE (11:51)
[2024-05-30] MEDS: TXA 1000mg in NS100 100ml (IVPB at Closure) 660 MG IV (11:57)
--- NOTE | 2024-05-30 12:06 | PCM.OPRPT ---
Operative Report (Standard) Operative Information Date of Procedure: 05/30/24 Pre-Operative Diagnosis: Left knee primary osteoarthritis Post-Operative Diagnosis: Left knee primary osteoarthritis Surgery/Procedure Performed: Left knee minimally invasive robotic assisted total knee replacement national account representative: Yes Composition Professor: Jeri Gee Tasks completed by or first assist registered nurse: Other (See body of operative report) Additional assistant spa manager?: Yes Additional Paintless Dent Repair Technician #2: Stair,Coates Tasks completed by assistant spa manager #2: Opening and Retracting Additional assistant spa manager?: No Type of Anesthesia: Spinal RN Documented Start/Stop Times: Operation Date: 05/30/24 10:00 Case Time Into Pre-Op 05/30/24 08:18 Anesthesia Start 05/30/24 10:36 Into Room 05/30/24 10:36 Procedure Start 05/30/24 11:09 Procedure End 05/30/24 12:19 Anesthesia End 05/30/24 12:25 Out of Room 05/30/24 12:25 Into Recovery 05/30/24 12:30 Into Phase II Recovery 05/30/24 13:50 Out of Recovery 05/30/24 13:50 Procedure Start Time: 11:09 Procedure Stop Time: 12:19 Select all DRAINS/GRAFTS/IMPLANTS that apply: Prosthetic device Prosthetic device details: See body of operative report Special Medications: 2 g Ancef, 1 g TXA at incision, 1 g TXA closure, 10 mg Decadron, joint cocktail (5 mg Duramorph, 30 mL of 0.5% Ropivicaine, 1000 units of epinephrine, 30 mg of Toradol) Estimated Blood Loss: 100 mL Fluids Replaced: 2000 mL crystalloid Specimen collected: Yes Description of specimen(s) removed: Bony cuts Description of surgery: Implants used: 1. Maribeth size 3 triathlon cruciate retaining distal femoral press-fit component 2. Maribeth size 3 press-fit tritanium tibial baseplate 3. Maribeth X3 9 mm polyethylene 4. [place] X3 29 mm asymmetric patella Brief history operative indications: 64-year-old F with history of left knee osteoarthritis with radiographic findings with loss of joint space, osteophyte formation and subchondral sclerosis. Failed conservative measures as mentioned in the H&P. Discussion of total knee arthroplasty as well as risk and benefits were discussed the patient including but not limited to blood loss, DVTs, PEs, neurovascular damage, general risk of anesthesia including loss of life, and stiffness or instability were discussed with patient. Patient demonstrated understanding and was able to sign informed consent. Procedure: On the date of procedure patient's left lower extremity was marked in the preoperative area. The patient was then taken back to the operating room where the patient was placed on the table in the supine position. All bony prominences were identified a well-padded. Anesthesia assumed control of the C-spine and airway and remained controlled throughout the remainder of the procedure. A tourniquet was placed on the left upper thigh and the leg was prepped in a sterile fashion. The surgeon then scrubbed at this time .Upon reentering the room left lower extremity was draped in a standard orthopedic fashion. A timeout was then called and everyone agreed upon the side, the site, the procedure to be performed, patient's identity and antibiotics given. Esmarch bandage was used to exsanguinate the extremity and the tourniquet was placed up to 250 mmHg with the knee in flexion. A midline skin incision was made and sharp dissection was taken down through skin subcutaneous tissue and fat. The standard medial parapatellar incision was made and the patella was subluxed laterally. An Appropriate deep MCL release was done and the fat pad was resected. Our attention was then directed to the patella. The patella was everted and a flat resection was made. The knee was then flexed up in 2 femoral pins were placed inside the incision and 2 tibial pins were placed outside the incision in the medial tibia bicortically. Once this was completed the 2 checkpoints in the femur and tibia were placed. Knee was then flexed up and the bony landmarks were registered. Once this was completed knee was taken through range of motion and manually stressed allowing us to a plan for an appropriate tibial cut. The robotic arm was brought into the field sterilely and checkpoint and saw were registered. Based on the patient's deformity the tibial cut was made in 3 degrees of varus. At this time the tensioner was then placed in the joint and ligament tension was checked at 90 degrees and full extension. Based on the patient's ligamentous tension appropriate adjustments were made to the operative plan and ligament releases were done. Once we were happy with our operative plan with balanced flexion and extension gaps our attention was directed to the femur. The robot was brought into the field sterilely and registered. Posterior condylar cuts, anterior chamfer cuts and anterior cuts were appropriately made for a size 3 femur. When these were completed the saws were switched out in the distal femoral and posterior chamfer cuts were made. Protecting the soft tissue throughout this time. A size 3 tibial base plate was selected. the knee was flexed to 90 degrees and the soft tissues and posterior osteophytes were removed from the joint. 40 cc of the periarticular injection was injected into the posterior medial corner of the joint. The appropriate trials were then placed on the femur and tibia. A trial polyethylene was trialed to ensure proper balancing and stability of the knee. The appropriate tibial internal rotation was then marked with a bovie. Our attention was then directed to the patella. The lug holes were drilled and the patella trial was placed. Patellar tracking was checked and deemed appropriate. Once we were happy lug holes were drilled for the femur and trial components were removed. The tibia was subluxed and pinned into place and the keel was punched and drilled appropriately. Final components were verified and opened. The wound was copiously irrigated with normal saline. When the cement was ready the components were impacted into place starting with the tibia then the femur, finally the patella was compressed into place. The trial poly component was placed and the knee was placed in full extension. Once the the implants were secured, the tracking, alignment and balance were verified and a size 9 mm CS polyethylene component was placed. Once the final components were placed a 3-minute dilute Betadine lavage was performed followed by an Irrisept lavage was performed and the wound was copiously irrigated with normal saline solution and the periarticular injection was given. The wound was closed in a layer bahena fashion using #1 vicryl interrupted sutures for the arthrotomy, 2-0 interrupted Vicryl suture for the subcuticular layer and christina for final skin closure. A sterile compressive dressing was then placed. The patient was then awakened from anesthesia, transferred to the [facility] and transferred to the PACU for recovery. Post op plan DVT ppx: ASA 81mg BID, thigh high compression stockings Follow up: in office in 2 weeks for wound check PT: to start POD #0 at hospital, outpatient PT should be arranged. My physician assistant spa manager was a vital part of this case, they was important because there was not another skilled set of hands available to their training and aptitude needed for safe and appropriate completion of this case. They were important in appropriate retraction during the case, and protection of soft tissues during bony cuts. In particular the experience and skill of this assistant spa manager made for safe retraction and exposure during implantation of medical implants without damage to vital soft tissues or structures. His intimate knowledge of the case and my steps aided in safe and expedient completion of the procedure as well as appropriate position of the leg during the case. He was also vital in assisting with closure under my direct supervision. Due to the complexity of this case robotic arm was used to assist in the surgery to improve accuracy and clinical outcomes. Surgical Findings: Stable knee with good patella tracking. Stage IV osteoarthritis Complications Complications: No Admit VTE Documentation VTE Present on Admission: No VTE Mechan Device Prophylaxis: SCD's and Thigh High JOSE Hose VTE Pharm Prophylaxis ordered?: Yes
--- NOTE | 2024-05-30 13:15 | PCM.POST.ANE ---
Anesthesia: Postop Eval I Current Vital Signs Temperature: 97 F Pulse Rate: 84 Blood Pressure: 123/69 Respiratory Rate: 16 Pulse Ox: 100 Oxygen Delivery Method: Nasal Cannula Oxygen Flow Rate (L/min): 4 Assessment Airway patent: Yes Spontaneous unlabored respirations: Yes Mental status: Awake nausea: No Vomiting: No Anesthesia Complication: No Fluid Hydration Crystalloid volume administer (ml): 700 Total IV fluid infused: 700 Progress Note Anesthesia document: Postop Eval 1 completed: Yes
--- NOTE | 2024-05-30 13:30 | RAD_ITS ---
PROCEDURE: KNEE 1 OR 2 VIEWS REASON FOR EXAM: Total knee replacement. TECHNIQUE: 2 view(s) of the left knee COMPARISON: Comparison is made with prior study dated August 04, 2023. FINDINGS: The patient is status post left total knee replacement. There is good alignment. Postoperative soft tissue changes. RAD/Knee 1 or 2 Views IMPRESSION: Status post left total knee replacement. There is good alignment. Postoperative soft tissue changes. Reading Location: [facility]
--- NOTE | 2024-05-30 13:39 | PCM.POSTANE2 ---
Anesthesia Postop Eval I Sum Postop Eval Completion status Anesthesia document: Postop Eval 1 completed: Yes Anesthesia Postop Eval I Summary Anesthesia Postop Eval I Summary: Anesthesia Postop Eval I: Assessment Summary Airway patent Yes 05/30/24 13:39 Spontaneous unlabored Yes 05/30/24 13:39 respirations Mental status Awake 05/30/24 13:39 nausea No 05/30/24 13:39 Vomiting No 05/30/24 13:39 Anesthesia Postop Eval I: Fluid Summary Crystalloid volume administer 700 05/30/24 13:39 (ml) Colloids volume administered ( ml) Blood Product volume administered (ml) Total IV fluid infused 700 05/30/24 13:39 Anesthesia Postop Eval I: Summary Notes Anesthesia Complication No 05/30/24 13:39 Anesthesia Complication Comment: Post-operative progress note Anesthesia: Postop Eval II Evaluation Mental status: Awake Pain Level: 2 nausea: No Vomiting: No
[2024-05-30] MEDS: Lactated Ringers 1,000 ML 75 ML IV (14:30)
--- NOTE | 2024-05-30 16:37 | PCM.CONS.GEN ---
Assessment & Plan Assessment/Plan (1) Status post total left knee replacement: PLAN: Plan Patient is a 64-year-old female who presented [facility] on 05/30/2024 for planned left knee replacement. Medicine consulted postoperatively for medical management. 1. Left knee primary osteoarthritis ? Orthopedics primary. S/p left minimally invasive invasive robotic total knee replacement on 05/[address] Mancia. Tolerated procedure well, no intraoperative complications. Pain control, DVT prophylaxis and further management per orthopedics. PT/OT/case management following. Chronic medical conditions: ? Class III obesity: BMI 42 on admit. Complicates hospital course, care and prognosis. ? Hypertension: BP normotensive to mildly hypotensive postoperatively. Will hold home lisinopril 20 mg daily for tomorrow but should be fine to resume on discharge. ? Hyperlipidemia: Statin intolerance noted. ? Type 2 diabetes mellitus: Will hold home metformin while inpatient but will be okay to resume on discharge. Given only mild diabetes, will hold on ordering Accu-Cheks and sliding scale insulin with meals at this time. ? Hypothyroidism: Continue home Synthroid. ? ERASMO: Utilize PAP therapy as needed. DVT prophylaxis: Per orthopedics Total clinical time spent by myself addressing the patient's medical issues, reviewing all the data, and collaborating with patient's care team: 35 minutes. HPI Consult Data Date of Consult: 05/30/24 HPI Narrative Reason for Consultation: Postoperative medical management HPI Narrative: LEONEL HAMLIN, is a 64 F who presented to [facility] on 05/30/2024 for planned orthopedic procedure. Medicine consulted postoperatively for medical management. Patient had left knee minimally invasive robotic assisted total knee replacement done with Dr. Mancia this morning. I saw the patient at bedside this afternoon. Patient was sitting up comfortably in bedside chair, conversing normally, in no acute distress. She notably had her right knee replaced about 4 months ago and did very well after the procedure, was able to be discharged home the next day. She denies any acute concerns at this time. [facility] Medical History MRSA (methicillin resistant staph aureus) culture positive Wears glasses Post-menopausal Thyroid disease Diabetes Arthritis Fatty liver High cholesterol Sleep apnea Shortness of breath on exertion Leg cramps Hypertension History of stress test History of echocardiogram Cardiology follow-up encounter Hypothyroidism Non-smoker Congestive heart failure (CHF) Abnormal stress test Type 2 diabetes mellitus without complication Back pain Screening for intestinal cancer Obesity Varicose veins of bilateral lower extremities with other complications Osteoarthritis Home Medications ?Medication ?Instructions ?Recorded ?Last Taken ?Type metformin 500 mg tablet,extended 1,000 mg PO QPM diabetes 12/25/22 05/29/24 History release 24 hr lisinopril 20 mg tablet 20 mg PO DAILY bp 02/01/24 05/29/24 History phentermine 15 mg capsule 37.5 mg PO DAILY weight loss 02/01/24 05/29/24 History acetaminophen 500 mg tablet 1,000 mg PO Q8 PRN pain 05/04/24 05/28/24 History sennosides 8.6 mg-docusate sodium 2 tab PO BID PRN constipation 05/04/24 05/29/24 History 50 mg tablet (Stimulant Laxative Plus) aspirin 81 mg capsule 81 mg PO DAILY 05/30/24 05/30/24 History levothyroxine 50 mcg tablet 50 mcg PO DAILY 05/30/24 05/29/24 History Allergy/AdvReac Type Severity Reaction Status Date / Time erythromycin base AdvReac Severe GI Upset Verified 05/30/24 08:41 atorvastatin AdvReac Intermediate Extreme Verified 05/30/24 08:41 dizziness, Nausea, cramping amoxicillin (From Augmentin) AdvReac Unknown GI Upset Verified 05/30/24 08:41 clavulanic acid (From AdvReac Unknown GI Upset Verified 05/30/24 08:41 Augmentin) Family History Mother CAD (coronary artery disease) Grandfather Congestive heart failure Grandmother CVA (cerebral vascular accident) Father Colon cancer Brother Colon cancer Surgical History History of right knee joint replacement History of cardiac catheterization History of hysterectomy History of tubal ligation History of tonsillectomy History of adenoidectomy History of liver biopsy History of cholecystectomy History of section Social History Smoking Status: Never smoker alcohol intake: never substance use type: does not use caffeine: No ROS Constitutional Constitutional: Denies chills, fatigue, fever(s) or weakness Cardiovascular Cardiovascular: Denies chest pain Respiratory/Chest Respiratory/Chest: Denies shortness of breath at rest Gastrointestinal Gastrointestinal: Denies abdominal pain Musculoskeletal Musculoskeletal: Denies joint pain or joint swelling Physical Exam Const alert, oriented x3 and no apparent distress Constitutional Narrative: Pleasant upper middle-aged female, class III obesity, sitting up comfortably in bedside chair, conversing normally, in no acute distress. General Appearance: cooperative and comfortable HEENT normocephalic, head/scalp atraumatic, hearing grossly normal bilaterally, nasal mucous membranes and turbinates normal and moist oral mucous membranes Eyes PERRL, EOMs intact bilaterally and conjunctivae normal Neck full ROM Chest inspection of chest normal Resp normal respiratory effort, normal air movement, no use of accessory muscles and clear to auscultation bilaterally Cardio regular rate, regular rhythm, no murmurs and peripheral pulses 2+ throughout GI normal to inspection, nondistended, normoactive bowel sounds, soft to palpation, non-tender and non-distended Back/Spine normal ROM Extremity Extremity Narrative: Left knee with ice pack and dressing in place. Skin no rashes or lesions noted Neuro moves all extremities and no focal motor deficits Speech: speech normal Motor Exam: strength 5/5 throughout Psych mental status grossly normal Lab / Micro Data 05/06/24 06:22 05/06/24 06:22 Labs: Laboratory Results - last 24 hr 05/30/24 08:54: POC Glucose 77 Imaging Radiology Impression Knee X-Ray 05/30/24 13:30 IMPRESSION: Status post left total knee replacement. There is good alignment. Postoperative soft tissue changes. Reading Location: [facility] Charges/Coding Visit Charges Inpatient E&M: 13059 Subs Hosp L2
[2024-05-30] MEDS: Famotidine 20 MG Tablet PO (16:40)
[2024-05-30] MEDS: Cefazolin 1 GM/50 ML BAG IV (17:50)
[2024-05-30] MEDS: 0.9% Saline Lock 10 ML Syringe IV (17:51)
[2024-05-30] MEDS: Ensure Surgery 237 ML LIQUID PO (18:05)
[2024-05-30] MEDS: oxyCODONE 5 MG Tablet PO (20:49)
[2024-05-30] MEDS: Senna/Docusate Sodium 1 Tablet 2 TABLET PO (20:49)
[2024-05-30] MEDS: Aspirin 81 MG TAB.CHEW PO (20:50)
[2024-05-31 00:15] VITALS: BP 124/67; PULSE 74; RESP 16; TEMP 36.1; O2SAT 96
[2024-05-31] MEDS: Cefazolin 1 GM/50 ML BAG IV (02:27)
[2024-05-31 04:00] VITALS: BP 117/79; PULSE 79; RESP 16; TEMP 36.4; O2SAT 96
[2024-05-31 04:53] LABS: Hematocrit 33.4 % (37-47); Hemoglobin 11.2 g/dL (12.0-15.0); Mean Corp Hgb Conc 33.5 g/dL (32-36); Mean Corpuscular Hgb 30.6 pg (27.0-32.0); Mean Corpuscular Volume 91.3 fL (81-99); Mean Platelet Vol. 9.3 fl (6.2-12.0); Platelet Count 263 K/mm3 (150-450); RBC Distribution Width SD 40.3 fl (35.1-43.9); Red Blood Count 3.66 M/mm3 (4.2-5.4); White Blood Count 10.1 K/mm3 (4.4-11.0)
[2024-05-31 05:40] LABS: Anion Gap 11 (5-15); BUN 19 mg/dL (4-19); Calcium 9.2 mg/dL (7.6-11.0); Carbon Dioxide 22.6 mmol/L (22.0-29.0); Chloride 102 mmol/L (96-108); EST Glomerular Filtration Rate 95 (>60); Estimated Creatinine Clearance 77.36 ml/min (50-250); Glucose 118 mg/dL (70-99); Potassium 4.6 mmol/L (3.3-5.1); Sodium Level 136 mmol/L (133-145)
[2024-05-31] MEDS: oxyCODONE 5 MG Tablet PO (05:59)
[2024-05-31] MEDS: Acetaminophen 500 MG Tablet 1000 MG PO (05:59)
[2024-05-31] MEDS: Lactated Ringers 1,000 ML 75 ML IV (06:00)
[2024-05-31] MEDS: Levothyroxine 50 MCG Tablet PO (06:02)
--- NOTE | 2024-05-31 08:55 | CASEMGMT ---
GAGAN COBOS Assessment: Face to Face with pt for initial transition planning/care coordination assessment. GAGAN COBOS introduced self and role at [facility], pt voices understanding and consents to assessment. Pt is A&O x4 and answers all questions appropriately at this time. Pt sitting up in chair in no distress anxious to go home. Care providers, pharmacy, and demographics verified/updated. Admitting Dx: L TKA Strata Score: 2 PCP:[facility] Specialists:efrain Mancia Preferred Pharmacy: [facility] Insurance: [facility] Prescription Benefit: yes LNOK: Hawa Leblanc, dtr Living Arrangements: Pt lives alone in a single story home with 3 steps to enter with a rail. Pt reports prior to surgery she was I in ADL/IADLs. Pt will have someone staying with her for 3 wks post op. Pt denies concerns at home. Transportation: Pt drives self and denies concerns with transportation. Pt dtr will transport her until she can drive again. DME:cane, walker, BSC, raised toilet seat, shower chair, walk in shower HHC/SNF: Denies hx of Pt states no concerns with going home at time of dc. Pt has outpt therapy set up for tomorrow at [facility]. Pt states no further concerns/needs. CM to follow. Advised pt to ask CM if any further questions/concerns/needs arise, voices understanding. Pt Goal: Home with outpt therapy Plan: Home with outpt therapy Tasha FARAH CM
[2024-05-31] MEDS: Famotidine 20 MG Tablet PO (09:22)
[2024-05-31] MEDS: Aspirin 81 MG TAB.CHEW PO (09:22)
[2024-05-31] MEDS: Senna/Docusate Sodium 1 Tablet 2 TABLET PO (09:22)
--- NOTE | 2024-05-31 09:47 | PCM.PN.ORT ---
Subjective Subjective Patient is sitting comfortably in bedside chair. Patient states that her pain is adequately controlled. Patient states that she has not yet had a bowel movement. Patient states that she has worked with PT and has been up walking with the nurses and things have gone really well. Patient denies any nausea , vomiting, dizziness, light headedness. Patient denies any shortness of breathe, chest pain, calf pain. Patient denies any fever, chills, signs of infection. Patient is eager to get out of hospital. Objective Data Objective Data Vital Signs: Vital Signs Temp Pulse Resp BP Pulse Ox O2 Del Method O2 Flow Rate 97.6 F L 79 16 117/79 96 Room Air 4 05/31/24 04:00 05/31/24 04:00 05/31/24 04:00 05/31/24 04:00 05/31/24 04:00 05/31/24 04:00 05/30/24 13:45 Oxygen Flow Rate (L/min) 4 Oxygen Delivery Method Room Air Weight: 105.4 kg Body Mass Index (BMI) 42.7 Intake & Output: Intake and Output for Last 24 Hours 05/29/24 05/30/24 05/31/24 23:59 23:59 23:59 Intake Total 3392 / 3392 2650 / 2650 Balance 3392 / 3392 2650 / 2650 Lab / Micro Data 05/31/24 03:38 05/31/24 03:38 Labs: Laboratory Results - last 24 hr 05/30/24 08:54: POC Glucose 77 05/31/24 03:38: WBC 10.1, RBC 3.66 L, Hgb 11.2 L, Hct 33.4 L, MCV 91.3, MCH 30.6, MCHC 33.5, RDW Std Deviation 40.3, RDW Coeff of Ramesh 12.0, Plt Count 263, MPV 9.3, Sodium 136, Potassium 4.6, Chloride Direct 102, Carbon Dioxide 22.6, Anion Gap 11, BUN 19, Creatinine 0.70, Estim Creat Clear Calc 77.36, Est GFR (MDRD) Non-Af 95, BUN/Creatinine Ratio 27.0 H, Glucose 118 H, Calcium 9.2 Micro: Microbiology 05/06/24 06:22 Swab (Method) Nasal Screen MRSA/MSSA - Final Radiography Diagnostic Testing: Radiology Impression Knee X-Ray 05/30/24 13:30 IMPRESSION: Status post left total knee replacement. There is good alignment. Postoperative soft tissue changes. Reading Location: [facility] Physical Exam Narrative 1. JOSE hose in place bilaterally. 2. SCDs in place bilaterally. 3. Dressing is clean dry and intact. 4. Dorsiflexion and plantarflexion are performed actively without pain or restriction. 5. Sensation intact to light touch. 6. Neurovascularly intact. 7. Negative Homans bilaterally. Const alert, oriented x3 and no apparent distress Assessment & Plan Assessment/Plan (1) Status post total left knee replacement: PLAN: 1. DVT prophylaxis: Patient will be taking aspirin 81 mg 2 times per day for 4 weeks postoperatively. Patient will also be wearing JOSE hose for 2 weeks postoperatively. Patient was educated she is able to remove JOSE hose at night. Patient was encouraged to increase movement while at home to prevent DVT. 2. Pain medications: Patient was instructed to take Tylenol 1000 mg every 8 hours taking no more than 3000 mg in 24 hours. Patient states that she does not do well with Meloxicam but often takes Naproxen and does well. Patient will receive naproxen post operatively. Patient was educated not to take any other NSAIDS while taking naproxen. Patient will then be on Oxycodone for breakthrough pain medication. OARRS report was reviewed today. Risk of abuse potential for narcotic pain medication was discussed and reviewed. Patient was advised not to drive a motor vehicle or operate heavy equipment while taking narcotic pain medication. They were instructed to use the minimal amount of narcotic pain medication as required for the pain. Patient voiced understanding. 3. Constipation: Patient was instructed to take senna until their first bowel movement to decrease risk of impaction following surgery. Patient was instructed if they have not had a bowel movement in 3 days to call our office for reevaluation. 4. Physical therapy: Patient will be weightbearing as tolerated using a walker. Patient did work with PT yesterday. 5. H&H: 11.2/33.4. Patient is asymptomatic at this time. Hemoglobin has remained over 10 so anemia protocol does not need to be started. 7. Incentive spirometry: Patient was encouraged to use incentive spirometer every hour that they are awake for the first week to exercise lungs and decrease risk postoperative infection. 8. Dressing: Patient was educated that she is able to get the dressing wet on postoperative day 1 and can remove the dressing on postoperative day 5. Patient is able to leave incision open to air as long as clean dry and intact. 9. Patient is to follow-up per postoperative instructions. 10. Patient will be on doxycycline 2 weeks postoperatively due to BMI. Patient was educated on the risk of sunburn while taking doxycycline and was encouraged to wear sunscreen if going to be outside in the sun. Patient was educated on taking a probiotic while taking antibiotics. 11. Patient will be on famotidine postoperatively for 30 days. 12. Medicine is on board and appreciate any recommendations from medicine at this time. 13. Patient will be discharged today as long as pain maintains adequately controlled, continues to work with and do well with physical therapy, and is okay per medicine doctors instructions and recommendations. 14. Disposition: Patient plans to go home at this time. Patient states that she will be going to stay with her daughter and then also has friends in to come in and help her. Patient states that she feels confident she will do well at home and is ready to go home. Patient does have out patient physical therapy established. Medications will be sent to patients pharmacy of choice. Patient was encouraged to call with any questions, concerns, new problems.
[2024-05-31 10:00] VITALS: BP 110/75; PULSE 89; RESP 16; TEMP 36.6; O2SAT 99
--- NOTE | 2024-05-31 10:05 | DCINST_ITS ---
Discharge Instructions Diet Discharge Diet: No restrictions DC O2, CPAP, BIPAP needs Home O2 Discharge instructions: No Dressing / Incision Discharge Activity: May Not Drive (until can walk 100 feet with cane and no longer taking narcotic pain medications.) and May Shower (in dressing on post operative day 1.) Weight Bearing Status: Weight bearing as tolerated (with walker) Keep extremity elevated above heart level: Left Leg Dressing / Incision Call your doctor if your incision/area has: Continuous Slow Oozing, Sudden Increased Bleeding, Increased Pain/ Swelling, Increased Redness and Foul Smelling Discharge Call your doctor if you observe: Fever of 101 or Higher, Change in Color, Inability to urinate, Inability to have a bowel movement, Shortness of breath, Dizziness, Fainting spells, Chest pain, Increased palpitations (irregular heartbeat), Calf discomfort and Uncontrolled pain Remove Dressing in: 4 days (Dressing is okay to be removed on post operative day 5. If incision is clean/ dry may leave open to air.) Cleanse incision/area with: Soap & Water Additional Dressing/Incision Instructions:: Follow [facility] Post-op Instructions. Dressing can be removed on postop day 5. Patient is able to shower on postop day 1. Do not use any ointments, Neosporin, salves, alcohol pads over the incision for 6 weeks postoperatively. Do not submerge underwater for 6 weeks postoperatively. Continue with JOSE hose/elastic stockings for 2 weeks postoperatively. May remove at nighttime but needs to be placed back on the leg during the day. Do NOT use alcohol with narcotic pain medication. Do NOT make important decisions while taking narcotic medication. If you have problems with taking your medication (rash, itching, nausea, etc.) call the office at once. Follow Up Care Test Results: Test results from this visit will be discussed in further detail at your follow- up appointment, if applicable. Discharge Plan Admission Admit Date/Time: 05/30/24 07:17 Attending Provider: Oli Mancia Primary Care Provider: Stefany Mayorga Consulting Providers: Salvador Johnson; Yves Dewitt; Travis Martin; Héctor Keita Discharge Orders/Prescriptions Prescriptions: New acetaminophen 500 mg Tablet 1,000 mg PO Q8 Qty: 0 0RF aspirin 81 mg capsule 81 mg PO BID 30 Days Qty: 60 0RF famotidine 20 mg Tablet 20 mg PO DAILY 30 Days Qty: 30 0RF naproxen 500 mg Tablet 500 mg PO BIDCM 30 Days Qty: 60 0RF oxycodone 5 mg Tablet 5 - 10 mg PO Q4H PRN PRN (Reason: as needed for pain) 7 Days Qty: 42 0RF Continued metformin 500 mg tablet extended release 24 hr 1,000 mg PO QPM Patient Comments: PLEASE SEE ATTACHED FOR DETAILED DIRECTIONS lisinopril 20 mg tablet 20 mg PO DAILY phentermine 15 mg capsule 37.5 mg PO DAILY Patient Comments: TAKE 1 CAPSULE BY MOUTH DAILY BEFORE BREAKFAST FOR 30 DAYS. sennosides-docusate sodium [Stimulant Laxative Plus] 8.6-50 mg Tablet 2 tab PO BID PRN (Reason: constipation) Rx Instructions: Take until first bowel movement, then as needed levothyroxine 50 mcg tablet 50 mcg PO DAILY No Action acetaminophen 500 mg Tablet 1,000 mg PO Q8 PRN (Reason: pain) Rx Instructions: Do not take more than 3000 mg Tylenol in a 24-hour period. aspirin 81 mg capsule 81 mg PO DAILY Referrals / Follow Up: Stefany Mayorga, HARESH-C [Primary Care Provider] - Disposition Disposition (needs filled in before D/C Order can be placed): Home, Self Care
--- NOTE | 2024-05-31 15:04 | PN.HOSP_ITS ---
Reason for Visit Reason for Visit: Diagnoses Encounter for other preprocedural examination (05/30/24) Presence of left artificial knee joint (05/30/24) Objective Data Objective Data Vital Signs: Vital Signs Temp Pulse Resp BP Pulse Ox O2 Del Method O2 Flow Rate 97.9 F 89 16 110/75 99 Room Air 4 05/31/24 10:00 05/31/24 10:00 05/31/24 10:00 05/31/24 10:00 05/31/24 10:00 05/31/24 10:00 05/30/24 13:45 Oxygen Flow Rate (L/min) 4 Oxygen Delivery Method Room Air Weight: 232 lb 5.875 oz Body Mass Index (BMI) 42.7 Intake & Output: Intake and Output for Last 24 Hours 05/29/24 05/30/24 05/31/24 23:59 23:59 23:59 Intake Total 3392 / 3392 3650 / 3650 Balance 3392 / 3392 3650 / 3650 Lab / Micro Data 05/31/24 03:38 05/31/24 03:38 Labs: Laboratory Results - last 24 hr 05/31/24 03:38: WBC 10.1, RBC 3.66 L, Hgb 11.2 L, Hct 33.4 L, MCV 91.3, MCH 30.6, MCHC 33.5, RDW Std Deviation 40.3, RDW Coeff of Ramesh 12.0, Plt Count 263, MPV 9.3, Sodium 136, Potassium 4.6, Chloride Direct 102, Carbon Dioxide 22.6, Anion Gap 11, BUN 19, Creatinine 0.70, Estim Creat Clear Calc 77.36, Est GFR (MDRD) Non-Af 95, BUN/Creatinine Ratio 27.0 H, Glucose 118 H, Calcium 9.2 Micro: Microbiology 05/06/24 06:22 Swab (Method) Nasal Screen MRSA/MSSA - Final Physical Exam Narrative Seen and examined. Patient is doing well. She had a spontaneous voiding urine. She is passing flatus. Had not moved bowel yet. She did well with the physical therapy. Plan for discharge home today Physical exam General: Alert, Oriented x3, Cooperative HEENT: Atraumatic, PERRLA, EOMI, Normocephalic Oral: No Gingival or Mucosal Lesions/ Ulcerations Neck: Supple, No JVD, Negative Carotid Bruits Chest wall/Lungs: Air entry equal in bilateral lung bases. No crepitation/rhonchi Cardiovascular: Regular rate, Regular Rhythm, Normal S1, Normal S2, No M/G/R Abdomen: Bowel Sounds Present, Soft, Non Tender, Non-Distended : No dysuria. No renal angle tenderness. No suprapubic tenderness. Extremities: No edema, Capillary Refill Less than 3 Seconds Skin: No rashes, No breakdown Musculoskeletal: Left TKR, surgical dressing is dry. No acute tenderness. Right TKR in the past. Neurological: Cranial nerves II-XII grossly intact, DTR 2+/4. No acute focal neurological deficit. Psych/Mental Status: Normal Affect, Appropriate. Assessment & Plan Assessment/Plan (1) Status post total left knee replacement: PLAN: Plan Patient is a 64-year-old female who presented [facility] on 05/30/2024 for planned left knee replacement. Medicine consulted postoperatively for medical management. 1. Left knee primary osteoarthritis ? Orthopedics primary. S/p left minimally invasive invasive robotic total knee replacement on 05/[address] Mancia. Patient did well with the physical therapy walked in the hallway and had few steps climbing. Hemodynamically stable. Being discharged home. Left knee surgical dressing is dry. Follow-up with orthopedic surgeon in 2 weeks. Chronic medical conditions: ? Class III obesity: BMI 42 on admit. Advised weight loss. ? Hypertension: BP normotensive to mildly hypotensive postoperatively. BPs 110/75. ? Hyperlipidemia: Statin intolerance noted. ? Type 2 diabetes mellitus: Home medications resumed. Metformin regimen. ? Hypothyroidism: Continue home Synthroid. ? ERASMO: Utilize PAP therapy as needed. DVT prophylaxis: Per orthopedics. On baby aspirin 81 mg twice daily Charges/Coding Visit Charges Inpatient E&M: 22597 Subs Hosp L2
== END 2024-05-31 12:00 | disposition home or self-care (01) ==
LOC: SDC 15:18 → AC 15:18 → SDC 15:19 → MS2 15:19
PROVIDERS: Anesthesiology; Admitting Provider Specialist; PCP Nurse Practitioner Family; Referring Provider Specialist; Visit Provider Specialist
PROC: 0SRD0JZ Replacement of Left Knee Joint with Synthetic Substitute, Open Approach (ICD-10-PCS; CPT 27447; principal; 2024-05-30 09:30)
DX: M17.12 Unilateral primary osteoarthritis, left knee (principal); I11.0 Hypertensive heart disease with heart failure; I50.9 Heart failure, unspecified; Z68.41 Body mass index [BMI] 40.0-44.9, adult; E66.813 Obesity, class 3; E11.51 Type 2 diabetes mellitus with diabetic peripheral angiopathy without gangrene; Z79.84 Long term (current) use of oral hypoglycemic drugs; M81.0 Age-related osteoporosis without current pathological fracture; E78.00 Pure hypercholesterolemia, unspecified; E03.9 Hypothyroidism, unspecified; Z79.82 Long term (current) use of aspirin; I95.81 Postprocedural hypotension; G47.33 Obstructive sleep apnea (adult) (pediatric); Z79.899 Other long term (current) drug therapy; Z79.890 Hormone replacement therapy
CPT/HCPCS: 27447; S2900; 01402; 64447; 36415; 73560; 80048; 82040; 82962; 83036; 83735; 84443; 85025; 85027; 87081; 88304; 88305; 88311; 96361; 96365; 96366; 97162; 97530; 99221; C1776; A4216; G0378; J2405; J3475

== ENCOUNTER → 2024-07-06 | Outpatient (CLI) | payer MEDICARE, OTHER, SELFPAY | END | disposition home or self-care (01) | LOC: BFHLAB 09:09 | PROVIDERS: PCP Nurse Practitioner Family; Visit Provider Nurse Practitioner Family | DX: E03.9 Hypothyroidism, unspecified (principal) | CPT/HCPCS: 36415; 84439; 84443 ==

== ENCOUNTER → 2024-07-15 | Outpatient (CLI) | payer MEDICARE, OTHER, SELFPAY ==
--- NOTE | 2024-07-15 07:03 | BI_ITS ---
EXAM: SCRN MAMM (CAD)W/INEZ BILAT DATE: 07/15/2024 CLINICAL HISTORY: F, Age 64 y/o, no family history. BREAST CANCER RISK ASSESSMENT: Not assessed. TECHNIQUE: Bilateral screening digital breast tomosynthesis with 2D and 3D images. Computer aided detection. COMPARISON: Prior exam(s) dated April 30, 2023.. FINDINGS: TISSUE DENSITY: The breast tissue is almost entirely fatty. Bilateral Breast Mammographic Findings: No significant masses, calcifications or other abnormalities are identified. No suspicious masses, areas of developing architectural distortion, or suspicious calcifications. There has been no significant interval change. BI/SCRN MAMM (CAD)W/INEZ BILAT IMPRESSION: Right Breast: BIRADS 1 NEGATIVE. Left Breast: BIRADS 1 NEGATIVE. OVERALL FINAL ASSESSMENT: BIRADS 1 NEGATIVE RECOMMENDATION: Routine annual follow-up in 1 Year A letter with findings and recommendations will be mailed to the patient. Reading Location: [id number]
== END | disposition home or self-care (01) ==
LOC: OPBI 07:00
PROVIDERS: PCP Nurse Practitioner Family; Referring Provider Nurse Practitioner Family; Visit Provider Nurse Practitioner Family
DX: Z12.31 Encounter for screening mammogram for malignant neoplasm of breast (principal)
CPT/HCPCS: 77063; 77067

== ENCOUNTER 2024-09-30 11:37 | Emergency (ER) | payer MEDICARE, OTHER, SELFPAY ==
[2024-09-30] VITALS (7 sets, daily range): BP systolic 111–137; BP diastolic 58–68; PULSE 66–97; RESP 14–16; TEMP 37.1–37.2; O2SAT 95–100; BMI 41.8
[2024-09-30 12:29] LABS: Mucous, Urine 0 SEEN /hpf (<or=2+); Red Blood Cells-Urine 0 SEEN /hpf (0-5)
[2024-09-30] MEDS: Cefazolin 1 GM/50 ML BAG IV (12:30)
[2024-09-30 12:46] LABS: Hematocrit 36.2 % (37-47); Hemoglobin 12.0 g/dL (12.0-15.0); Immature Granulocytes Count 0.020 X10^3/uL (0.0-0.0); Mean Corp Hgb Conc 33.1 g/dL (32-36); Mean Corpuscular Volume 91.9 fL (81-99); Mean Platelet Vol. 9.4 fl (6.2-12.0); NRBC Flagged by Analyzer 0 % (0-5); Platelet Count 209 K/mm3 (150-450); RBC Distribution Width CV 12.7 % (11.6-14.6); RBC Distribution Width SD 43.1 fl (35.1-43.9); Red Blood Count 3.94 M/mm3 (4.2-5.4); White Blood Count 4.7 K/mm3 (4.4-11.0)
[2024-09-30 12:47] LABS: Color, Urine Yellow (Yellow); Glucose, Dipstick Normal (Normal); Ketone-Dipstick Negative (Negative); Leukocyte Esterase-Dipstick 500 /ul (Negative); Nitrite-Dipstick Negative (Negative); Occult Blood-Urine 25 /ul (Negative); Protein-Dipstick Negative (Negative); Specific Gravity, Urine 1.015 (1.002-1.030); Urine Bilirubin Dipstick Negative (Negative)
[2024-09-30 12:52] LABS: Squamous Epithelial Cells - UA 0-5 SEEN /hpf (5-10)
[2024-09-30 13:12] LABS: Anion Gap 10 (5-15); BUN 20 mg/dL (4-19); BUN/Creat Ratio 20.9 RATIO (10-20); Calcium,Total 9.0 mg/dL (7.6-11.0); Carbon Dioxide 24.2 mmol/L (21.0-32.0); Chloride 102 mmol/L (98-108); Estimated Creatinine Clearance 65.17 ml/min (50-250); Glucose 95 mg/dL (70-99); Potassium 4.2 mmol/L (3.3-5.1)
== END 2024-09-30 15:11 | disposition home or self-care (01) ==
PROVIDERS: Emergency Provider Emergency Medicine; PCP Nurse Practitioner Family; Visit Provider Emergency Medicine
DX: L03.116 Cellulitis of left lower limb (principal); I11.0 Hypertensive heart disease with heart failure; I50.9 Heart failure, unspecified; E11.9 Type 2 diabetes mellitus without complications; M84.375A Stress fracture, left foot, initial encounter for fracture; X58.XXXA Exposure to other specified factors, initial encounter; N39.0 Urinary tract infection, site not specified; E78.00 Pure hypercholesterolemia, unspecified; E03.9 Hypothyroidism, unspecified; Z79.82 Long term (current) use of aspirin; Z79.84 Long term (current) use of oral hypoglycemic drugs; Z79.890 Hormone replacement therapy; Z79.899 Other long term (current) drug therapy
CPT/HCPCS: 73630; 80048; 81001; 85025; 87077; 87086; 87088; 87186; 96365; 99285; A4216

== ENCOUNTER → 2025-01-03 | Outpatient (CLI) | payer MEDICARE, OTHER, SELFPAY | END | disposition home or self-care (01) | LOC: LABSPEC 16:04 | PROVIDERS: PCP Nurse Practitioner Family; Referring Provider Nurse Practitioner Family; Visit Provider Nurse Practitioner Family | DX: N39.0 Urinary tract infection, site not specified (principal) | CPT/HCPCS: 87086; 87088 ==

== ENCOUNTER 2025-01-12 09:56 | Day surgery (SDC) | payer MEDICARE, OTHER, SELFPAY ==
[2024-12-27 06:58] LABS: Hematocrit 38.3 % (37-47); Hemoglobin 12.5 g/dL (12.0-15.0); Immature Granulocytes Count 0.020 X10^3/uL (0.0-0.0); Mean Corp Hgb Conc 32.6 g/dL (32-36); Mean Corpuscular Volume 94.3 fL (81-99); Mean Platelet Vol. 9.2 fl (6.2-12.0); NRBC Flagged by Analyzer 0 % (0-5); Platelet Count 282 K/mm3 (150-450); RBC Distribution Width CV 13.0 % (11.6-14.6); RBC Distribution Width SD 44.9 fl (35.1-43.9); Red Blood Count 4.06 M/mm3 (4.2-5.4); White Blood Count 5.9 K/mm3 (4.4-11.0)
[2024-12-27 07:52] LABS: Anion Gap 12 (5-15); BUN 20 mg/dL (4-19); BUN/Creat Ratio 21.3 RATIO (10-20); Calcium,Total 9.4 mg/dL (7.6-11.0); Carbon Dioxide 22.9 mmol/L (21.0-32.0); Chloride 101 mmol/L (98-108); Glucose 92 mg/dL (70-99); Potassium 4.7 mmol/L (3.3-5.1)
--- NOTE | 2024-12-30 10:35 | PAT.ANE_ITS ---
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 When Was Last Pacemaker Check QUESTION #4 FULL TEXT: You/Your Family Experience fever (hyperthermia) with Anesthesia Last Oral Intake Last Oral intake: Last Oral Intake NPO since Meds taken in AM with sips of water? 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 - sales contract administrator: PONV - sales contract administrator Female Yes 12/30/24 08:10 HX of Motion Sickness No 12/30/24 08:10 HX of N/V After Surgery No 12/30/24 08:10 Non-Smoker Yes 12/30/24 08:10 Duration of Surgery greater Yes 12/30/24 08:10 than 60 minutes Number of Risk Factors 3 12/30/24 08:10 PONV Score Moderate Risk 12/30/24 08:10 Height & Weight Height & Weight: Anesthesia: Height & Weight Height 5 ft 2 in 09/30/24 11:37 Respiratory Assessment Respiratory Assessment - sales contract administrator: Respiratory Tract Infection Hx - sales contract administrator Hx Respiratory Tract Infection No 12/30/24 08:10 STOP Sleep Apnea STOP Sleep Apnea - sales contract administrator: STOP Sleep Apnea - sales contract administrator Hx Hypertension Yes 12/30/24 08:10 Hx Sleep Apnea No 12/30/24 08:10 CPAP No 05/30/24 16:08 BIPAP No 05/30/24 16:08 Do you snore loudly (louder No 12/30/24 08:10 than talking or can be heard Do you often feel tired/ No 12/30/24 08:10 fatigued/ sleepy during daytime? Has anyone observed you stop No 12/30/24 08:10 breathing during sleep? STOP Results Negative 12/30/24 08:10 QUESTION #5 FULL TEXT : Do you snore loudly (louder than talking or can be heard through closed doors)? 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 Specify any problems Hx of Preganancy in last 3 N/A 12/30/24 08:10 Months Nurse Filling Out Transfusion [facility]BU[facility]ER 12/30/24 08:10 & Questions: Date: 12/30/24 12/30/24 08:10 Time: 08:14 12/30/24 08:10 Patient unable to answer at this time (ie. confused, unrespo /Reproduction History /Reproductive History - sales contract administrator: /Reproductive Hx- sales contract administrator Hx Now No 12/30/24 08:10 Gestational Age (in weeks): EDC: Hx Hx Para Hx Section SAB No 12/30/24 08:10 PFSH Medical History MRSA (methicillin resistant staph aureus) culture positive Wears glasses Post-menopausal Thyroid disease Diabetes Arthritis Fatty liver High cholesterol Sleep apnea Shortness of breath on exertion Leg cramps Hypertension History of stress test History of echocardiogram Cardiology follow-up encounter Hypothyroidism Non-smoker Congestive heart failure (CHF) Abnormal stress test Type 2 diabetes mellitus without complication Back pain Screening for intestinal cancer Obesity Varicose veins of bilateral lower extremities with other complications Osteoarthritis Home Medications ?Medication ?Instructions ?Recorded ?Last Taken ?Type metformin 500 mg tablet,extended 1,000 mg PO DAILY arely betes 12/25/22 05/29/24 History release 24 hr lisinopril 20 mg tablet 20 mg PO DAILY bp 02/01/24 0 05/29/24 History phentermine 15 mg capsule 37.5 mg PO DAILY weight loss 02/01/24 05/29/24 History acetaminophen 500 mg tablet 1,000 mg PO Q8 PRN pain 05/28/24 History sennosides 8.6 mg-docusate sodium 2 tab PO BID PRN con stipation 05/04/24 05/29/24 History 50 mg tablet (Stimulant Laxative Plus) levothyroxine 50 mcg tablet 50 mcg PO DAILY 05/30/24 0 05/29/24 History naproxen 500 mg tablet 500 mg PO BIDCM PRN pain 06/21 Unknown History Allergy/AdvReac Type Severity Reaction Status Date / Time erythromycin base AdvReac Severe GI Upset Verified 12/30/24 08:06 atorvastatin AdvReac Intermediate Extreme Verified 12/30/24 08:06 dizziness, Nausea, cramping amoxicillin (From Augmentin) AdvReac Unknown GI Upset Verified 12/30/24 08:06 clavulanic acid (From AdvReac Unknown GI Upset Verified 12/30/24 08:06 Augmentin) Family History Mother CAD (coronary artery disease) Grandfather Congestive heart failure Grandmother CVA (cerebral vascular accident) Father Colon cancer Brother Colon cancer Surgical History (Updated 12/30/24 @ 08:16 by Mary Concepcion) History of left knee replacement History of right knee joint replacement History of cardiac catheterization History of hysterectomy History of tubal ligation History of tonsillectomy History of adenoidectomy History of liver biopsy History of cholecystectomy History of section Social History Smoking Status: Never smoker alcohol intake: never substance use type: does not use caffeine: No Audit: Pertinent Findings Pertinent Findings EKG Perinent findings: 02/04/2024. Normal sinus rhythm 87 bpm. Echo (EF%) pertinent findings: 08/28/2022. Normal size function EF 60%. Heart catheterization pertinent findings: 03/02/2023. For suspected coronary artery disease. Conclusions. Nonobstructive coronary arteries. Consult pertinent findings: Cardiology 12/25/2022. Abnormal stress test. Mild. Cardiac catheterization ordered but denied by insurance. Therefore placed on medical therapy. Will check calcium score to further assess. Hypertension. Started on amlodipine. Recommendation Anesthesia Recommendation Anesthesia recommendation: OPTIMIZED for anesthesia
[2025-01-12] VITALS (15 sets, daily range): BP systolic 117–142; BP diastolic 64–95; PULSE 70–85; RESP 12–17; TEMP 35.6–36.6; O2SAT 90–100; BMI 42.3
[2025-01-12] MEDS: Lactated Ringers 1,000 ML 15 ML IV (10:33)
--- NOTE | 2025-01-12 10:43 | PRE.ANES_ITS ---
ASA Classification* ASA Classification ASA Classification: 2 Assessment & Plan Anesthesia* Anesthesia Assessment Anesthesia Assessment: Discussed sedation and/or anesthesia options, risks, benefits, and alternatives with patient/parents/legal guardian/POA. Questions invited. The patient/parents/legal guardian/POA seems to understand and agrees to proceed with anesthesia plan. Reviewed the physical assessment, medical history, allergy history and patient home medications list prior to surgery/procedure/anesthetic and documented any changes. Performed airway and anesthesia risk assessments. Anesthesia Type Anesthesia Type: General and Block History Source History Obtained from:: Patient and Chart Anesthesia Focused Assessment* Temperature: 98 F Pulse Rate: 81 Blood Pressure: 124/78 Respiratory Rate: 17 Pulse Ox: 100 Oxygen Delivery Method: Room Air Airway Assessment Mouth opens: >3 cm Mallampati Score: II Teeth Condition: Intact Neck Range of motion (ROM): Full ROM Labs Anesthesia Preop lab: CBC WBC, (4.4-11.0) 5.9 K/mm3 12/27/24, 06:22 RBC, (4.2-5.4) 4.06 M/mm3 L 12/27/24, 06:22 Hgb, (12.0-15.0) 12.5 g/dL 12/27/24, 06:22 Hct, (37-47) 38.3 % 12/27/24, 06:22 Plt Count, (150-450) 282 K/mm3 12/27/24, 06:22 CHEMISTRY Potassium, (3.3-5.1) 4.7 mmol/L 12/27/24, 06:22 Sodium, (133-145) 136 mmol/L 12/27/24, 06:22 Magnesium, (1.6-2.6) 2.1 mg/dL 05/06/24, 06:22 BUN, (4-19) 20 mg/dL H 12/27/24, 06:22 Creatinine, (0.70-1.20) 0.95 mg/dL 12/27/24, 06:22 Glucose, (70-99) 92 mg/dL 12/27/24, 06:22 POC Glucose, (74-106) 77 mg/dL 05/30/24, 08:54 TSH, (0.300-4.200) 3.890 uIU/mL 12/27/24, 06:22 COAG PT, (11.7-14.9) 11.7 SECONDS 08/28/22, 15:14 Pre-Assessment Diagnosis/Proposed Procedure Planned Operative Procedure(s): (R) RIGHT SHOULDER ARTHROSCOPIC ROTATOR CUFF REPAIR, SUBACROMIAL DECOMPRESSION, DISTAL CLAVICLE EXCISION, POSSIBLE BICEPS TEN ODESIS Anesthesia History 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 When Was Last Pacemaker Check QUESTION #4 FULL TEXT: You/Your Family Experience fever (hyperthermia) with Anesthesia Last Oral Intake Last Oral intake: Last Oral Intake NPO since 00:00 01/12/25 10:20 Meds taken in AM with sips of No 01/12/25 10:20 water? 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 - design drafter chief: PONV - design drafter chief Female Yes 12/30/24 08:10 HX of Motion Sickness No 12/30/24 08:10 HX of N/V After Surgery No 12/30/24 08:10 Non-Smoker Yes 12/30/24 08:10 Duration of Surgery greater Yes 12/30/24 08:10 than 60 minutes Number of Risk Factors 3 12/30/24 08:10 PONV Score Moderate Risk 12/30/24 08:10 Height & Weight Height & Weight: Anesthesia: Height & Weight Height 5 ft 2 in 01/12/25 10:20 Weight: 105 kg 01/12/25 10:20 Body Mass Index (BMI) 42.3 01/12/25 10:20 Respiratory Assessment Respiratory Assessment - design drafter chief: Respiratory Tract Infection Hx - design drafter chief Hx Respiratory Tract Infection No 12/30/24 08:10 STOP Sleep Apnea STOP Sleep Apnea - design drafter chief: STOP Sleep Apnea - design drafter chief Hx Hypertension Yes 12/30/24 08:10 Hx Sleep Apnea No 12/30/24 08:10 CPAP No 05/30/24 16:08 BIPAP No 05/30/24 16:08 Do you snore loudly (louder No 12/30/24 08:10 than talking or can be heard Do you often feel tired/ No 12/30/24 08:10 fatigued/ sleepy during daytime? Has anyone observed you stop No 12/30/24 08:10 breathing during sleep? STOP Results Negative 12/30/24 08:10 QUESTION #5 FULL TEXT : Do you snore loudly (louder than talking or can be heard through closed doors)? 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 Specify any problems Hx of Preganancy in last 3 N/A 12/30/24 08:10 Months Nurse Filling Out Transfusion [facility] 12/30/24 08:10 & Questions: Date: 12/30/24 12/30/24 08:10 Time: 08:14 12/30/24 08:10 Patient unable to answer at this time (ie. confused, unrespo /Reproduction History /Reproductive History - design drafter chief: /Reproductive Hx- design drafter chief Hx Now No 12/30/24 08:10 Gestational Age (in weeks): EDC: Hx Hx Para Hx Section SAB No 12/30/24 08:10 Active Medications Active Medications: Current Medications Generic Name Dose Route Start Last Admin Trade Name Freq PRN Reason Stop Dose Admin Cefazolin Sodium 2 gm/ Sodium 110 mls @ 200 mls/hr 01/12/25 12:15 Chloride IV 01/12/25 12:47 INTRAOP ONE Lactated Ringer's 1,000 mls @ 15 mls/hr 01/12/25 10:15 01/12/25 10:33 IV 15 mls/hr .Q48H KWAME Administration PFSH Medical History MRSA (methicillin resistant staph aureus) culture positive Wears glasses Post-menopausal Thyroid disease Diabetes Arthritis Fatty liver High cholesterol Sleep apnea Shortness of breath on exertion Leg cramps Hypertension History of stress test History of echocardiogram Cardiology follow-up encounter Hypothyroidism Non-smoker Congestive heart failure (CHF) Abnormal stress test Type 2 diabetes mellitus without complication Back pain Screening for intestinal cancer Obesity Varicose veins of bilateral lower extremities with other complications Osteoarthritis Home Medications ?Medication ?Instructions ?Recorded ?Last Taken ?Type metformin 500 mg tablet,extended 1,000 mg PO DAILY arely betes 12/25/22 01/11/25 History release 24 hr lisinopril 20 mg tablet 20 mg PO DAILY bp 02/01/24 1 History phentermine 15 mg capsule 37.5 mg PO DAILY weight loss 02/01/24 01/11/25 History acetaminophen 500 mg tablet 1,000 mg PO Q8 PRN pain 01/11/25 History sennosides 8.6 mg-docusate sodium 2 tab PO BID PRN con stipation 05/04/24 05/29/24 History 50 mg tablet (Stimulant Laxative Plus) levothyroxine 50 mcg tablet 50 mcg PO DAILY 05/30/24 1 History naproxen 500 mg tablet 500 mg PO BIDCM PRN pain 06/2101/11/25 History Allergy/AdvReac Type Severity Reaction Status Date / Time erythromycin base AdvReac Severe GI Upset Verified 01/12/25 10:20 atorvastatin AdvReac Intermediate Extreme Verified 01/12/25 10:20 dizziness, Nausea, cramping amoxicillin (From Augmentin) AdvReac Unknown GI Upset Verified 01/12/25 10:20 clavulanic acid (From AdvReac Unknown GI Upset Verified 01/12/25 10:20 Augmentin) Family History Mother CAD (coronary artery disease) Grandfather Congestive heart failure Grandmother CVA (cerebral vascular accident) Father Colon cancer Brother Colon cancer Surgical History History of left knee replacement History of right knee joint replacement History of cardiac catheterization History of hysterectomy History of tubal ligation History of tonsillectomy History of adenoidectomy History of liver biopsy History of cholecystectomy History of section Social History Smoking Status: Never smoker alcohol intake: never substance use type: does not use caffeine: No Review of Systems (Anesthesia) ROS Narrative System reviewed and no additional complaints, except as documented.
[2025-01-12] MEDS: Lidocaine 1% (5 ml sdv) 5 ML Vial 3 ML IV (11:30)
[2025-01-12] MEDS: Midazolam 2 MG/2 ML Syringe IV (11:30)
[2025-01-12] MEDS: Cefazolin 1 GM/5 ML Vial 2 GM IV (11:44)
[2025-01-12] MEDS: fentaNYL 100 MCG/2 ML Ampul IV (11:50)
--- NOTE | 2025-01-12 13:34 | PCM.POST.ANE ---
Anesthesia: Postop Eval I Current Vital Signs Temperature: 97 F Pulse Rate: 79 Blood Pressure: 142/87 Respiratory Rate: 14 Pulse Ox: 96 Oxygen Delivery Method: Venturi Mask Oxygen Flow Rate (L/min): 6 Assessment Airway patent: Yes Spontaneous unlabored respirations: Yes Mental status: Awake and Calm nausea: No Vomiting: No Anesthesia Complication: No Fluid Hydration Crystalloid volume administer (ml): 800 Total IV fluid infused: 800 Progress Note Anesthesia document: Postop Eval 1 completed: Yes
--- NOTE | 2025-01-12 14:14 | POSTOPAN2_ITS ---
Anesthesia Postop Eval I Sum Postop Eval Completion status Anesthesia document: Postop Eval 1 completed: Yes Anesthesia Postop Eval I Summary Anesthesia Postop Eval I Summary: Anesthesia Postop Eval I: Assessment Summary Airway patent Yes 01/12/25 13:34 MARKETING REPRESENTATIVE.MDOT Spontaneous unlabored Yes 01/12/25 13:34 MARKETING REPRESENTATIVE.MDOT respirations Mental status Awake,Calm 01/12/25 13:34 MARKETING REPRESENTATIVE.MDOT nausea No 01/12/25 13:34 MARKETING REPRESENTATIVE.MDOT Vomiting No 01/12/25 13:34 MARKETING REPRESENTATIVE.MDOT Anesthesia Postop Eval I: Fluid Summary Crystalloid volume administer 800 01/12/25 13:34 MARKETING REPRESENTATIVE.MDOT (ml) Colloids volume administered ( ml) Blood Product volume administered (ml) Total IV fluid infused 800 01/12/25 13:34 MARKETING REPRESENTATIVE.MDOT Anesthesia Postop Eval I: Summary Notes Anesthesia Complication No 01/12/25 13:34 MARKETING REPRESENTATIVE.MDOT Anesthesia Complication Comment: Post-operative progress note Anesthesia: Postop Eval II Evaluation Mental status: Awake and Calm Pain Level: 1 nausea: No Vomiting: No Complications Anesthesia Complication: No
--- NOTE | 2025-01-12 14:14 | PCM.POSTANE2 ---
Anesthesia Postop Eval I Sum Postop Eval Completion status Anesthesia document: Postop Eval 1 completed: Yes Anesthesia Postop Eval I Summary Anesthesia Postop Eval I Summary: Anesthesia Postop Eval I: Assessment Summary Airway patent Yes 01/12/25 13:34 MARKET BASKET MAKER.MDOT Spontaneous unlabored Yes 01/12/25 13:34 MARKET BASKET MAKER.MDOT respirations Mental status Awake,Calm 01/12/25 13:34 MARKET BASKET MAKER.MDOT nausea No 01/12/25 13:34 MARKET BASKET MAKER.MDOT Vomiting No 01/12/25 13:34 MARKET BASKET MAKER.MDOT Anesthesia Postop Eval I: Fluid Summary Crystalloid volume administer 800 01/12/25 13:34 MARKET BASKET MAKER.MDOT (ml) Colloids volume administered ( ml) Blood Product volume administered (ml) Total IV fluid infused 800 01/12/25 13:34 MARKET BASKET MAKER.MDOT Anesthesia Postop Eval I: Summary Notes Anesthesia Complication No 01/12/25 13:34 MARKET BASKET MAKER.MDOT Anesthesia Complication Comment: Post-operative progress note Anesthesia: Postop Eval II Evaluation Mental status: Awake and Calm Pain Level: 1 nausea: No Vomiting: No Complications Anesthesia Complication: No
--- NOTE | 2025-01-12 15:26 | OP.PCM_ITS ---
Operative Report (Standard) Operative Information Date of Procedure: 01/12/25 Pre-Operative Diagnosis: 1. Right shoulder rotator cuff tear 2. Right shoulder subacromial impingement 3. Right shoulder acromioclavicular joint osteoarthritis Post-Operative Diagnosis: 1. Right shoulder rotator cuff tear 2. Right shoulder subacromial impingement 3. Right shoulder acromioclavicular joint osteoarthritis Surgery/Procedure Performed: 1. Right shoulder arthroscopic rotator cuff repair 2. Right shoulder arthroscopic subacromial decompression 3. Right shoulder arthroscopic distal clavicle excision optimization specialist: Yes Pulley Mortiser Operator: Lety Tate Tasks completed by product safety technical assistant: Opening & closing, Implanting device and Retracting Type of Anesthesia: General/Regional RN Documented Start/Stop Times: Operation Date: 01/12/25 12:00 Case Time Into Pre-Op 01/12/25 10:00 Anesthesia Start 01/12/25 11:44 Into Room 01/12/25 11:44 Procedure Start 01/12/25 12:18 Procedure End 01/12/25 13:12 Anesthesia End 01/12/25 13:23 Out of Room 01/12/25 13:23 Into Recovery 01/12/25 13:25 Out of Recovery 01/12/25 15:22 Into Phase II Recovery 01/12/25 15:23 Procedure Start Time: 12:18 Procedure Stop Time: 13:12 Select all DRAINS/GRAFTS/IMPLANTS that apply: Implanted device Implanted device details: Arthrex triple loaded fiber tack anchor, Arthrex self punching bio composite 4.75 mm swivel lock anchor Estimated Blood Loss: 5 cc Specimen collected: No Description of surgery: Patient was identified in preoperative holding area by name, medical record number, and date of . The operative extremity was marked. All questions were answered to the patient's satisfaction. An interscalene block was administered by anesthesia prior to the procedure. Patient was then brought to the operative suite at time of her procedure. She was positioned supine a sterile operating table. General anesthesia was induced and LMA was placed. Patient was then placed in lateral decubitus position with the right side up. A beanbag was used to hold the patient in the lateral decubitus position. An axillary roll was placed. Pillows were placed beneath and between his legs to for any bony prominences. We prepped and draped the right upper extremity in normal, sterile orthopedic fashion. The operative extremity was placed in traction utilizing arthroscopic bedroom with 15 pounds of tension applied to the operative extremity throughout the arthroscopic portion of the case, approximately 45 minutes. We performed a timeout with all parties in attendance in agreement with the side, site, and operation be performed. No concerns were voiced and we elected to proceed with surgery. 2 g Ancef was administered IV prior to incision by anesthesia staff. I first established a standard posterior portal 2 fingerbreadths inferior medial to the posterior lateral border of the scapular spine. Blunt tipped trocar and arthroscopic cannula was introduced into the glenohumeral joint. Joint was filled with normal saline with epinephrine. Arthroscope was then introduced. Diagnostic arthroscopy was commenced. Full-thickness tearing was noted of the supraspinatus and anterior margin/anterior cable. Subscapularis was pristine. Glenohumeral cartilage was pristine. Labrum was minimally degenerative and biceps tendon was pristine along its course and stable in its groove. I debrided the articular sided supraspinatus after establish an anterior interval portal. I then turned my attention to the subacromial space. Arthroscopic instruments were removed. I reentered the shoulder in the subacromial space with blunt tipped trocar. Standard lateral portal was established with an 11 blade scalpel. Rigid cannula was placed for suture management during rotator cuff repair. I then skeletonized the undersurface of the acromion. A prominent downsloping spur from the anterior lateral surface of the acromion was identifie d. Acromioplasty was performed with the arthroscopic bur removing the spur. I then exposed the supraspinatus footprint with the cautery device. The footprint was lightly decorticated with a bur. Bursal side of the tendon tissue was debrided with a radial resector. I then proceeded with double row fixation. Via percutaneous portal, a fiber darwin triple loaded anchor was placed along the chondral margin of the cuff footprint. Sutures were retrieved out the anterior portal. I then sequentially passed each limb of suture from the anchor. The 3 the suture pairs were then subsequently tied consecutively compressing the medial margin of the rotator cuff to its footprint well. The 6 suture limbs were then passed through a bio composite swivel lock anchor for lateral row fixation alone. This was placed at the lateral margin of the greater tuberosity with excellent fixation. There was good compression and reduction of the tendon. There was a small dogear anteriorly which was reduced with the knotless mechanism of the lateral row anchor. Sutures were cut flush with the lateral row anchor. Tendon was excellently reduced and appeared stable to probing. I then turned my attention to the AC joint. Anterior and inferior capsule was released from the AC joint. Distal clavicle excision was then performed in standard fashion with arthroscopic bur resecting approximately 8 mm of distal clavicle. Superior and posterior aspects of the joint were left intact. I then thoroughly lavaged the subacromial space. Arthroscopic instruments were removed. Portal sites were closed in standard fashion with a [id number] 3- 0 nylon suture. Bulky sterile compression dressing was applied. Patient was placed in UltraSling. She tolerated the procedure well without apparent complication. He was safely awoken the operative suite and extubated. She he was transferred to his gurney and subsequently to PACU in stable condition. Need for skilled assistant professor of psychology: Lety Tate PA-C was critical to the outcome of the case. During the course of the procedure the physician assistant professor of psychology played a vital role. Her intimate knowledge of my steps in the procedure aided in safe and expedient completion of the procedure. The PA played a vital role in positioning particularly in obtaining the appropriate positioning. The PA was also vital in the retraction of soft tissues during the exposure and protecting vital structures. The PA was also vital and obtaining tendon reduction and assisting with hardware placement. She also played a vital role in closure and sling application with my direct supervision. Post Operative Plan: Weightbearing: Nonweightbearing right upper extremity, okay for pendulums. Range of motion of wrist elbow and hand as tolerated. Antibiotics: 2 g Ancef IV prior to incision DVT Prophylaxis: Aspirin enteric-coated 81 mg twice daily starting tomorrow [place]: None Dressing: Maintain dressing x 2 days then ok to shower X-Rays: 2 weeks postop in the office Pain Medication: Oxycodone Rx upon discharge, Tylenol and naproxen Follow-up: 2 weeks post-operatively with me in the office Surgical Findings: Anterior cable tear supraspinatus. Pristine biceps. Downsloping subacromial spur. AC joint arthrosis. Complications Complications: No Admit VTE Documentation VTE Present on Admission: No VTE Mechan Device Prophylaxis: SCD's VTE Pharm Prophylaxis ordered?: Yes
== END 2025-01-12 16:39 | disposition home or self-care (01) ==
LOC: SDC 09:57 → AC 09:57
PROVIDERS: PCP Nurse Practitioner Family; Referring Provider Student in an Organized Health Care Education/Training Program; Visit Provider Student in an Organized Health Care Education/Training Program
PROC: (CPT 29827; principal; 2025-01-12 11:40)
DX: S46.011A Strain of muscle(s) and tendon(s) of the rotator cuff of right shoulder, initial encounter (principal); E11.51 Type 2 diabetes mellitus with diabetic peripheral angiopathy without gangrene; M75.41 Impingement syndrome of right shoulder; M19.011 Primary osteoarthritis, right shoulder; X50.0XXA Overexertion from strenuous movement or load, initial encounter; I10 Essential (primary) hypertension; M81.0 Age-related osteoporosis without current pathological fracture; E07.9 Disorder of thyroid, unspecified; Z79.1 Long term (current) use of non-steroidal anti-inflammatories (NSAID); Z79.84 Long term (current) use of oral hypoglycemic drugs; Z79.899 Other long term (current) drug therapy; Z79.890 Hormone replacement therapy
CPT/HCPCS: 29827; 29824; 29826; 64415; 01630; 36415; 80048; 83036; 84443; 85025; C1713; J2405